=== PATIENT | female | born 1945 | race Two or more races ===

== ENCOUNTER → 2020-04-20 13:34 | Outpatient (BNVA) | payer MEDICARE, SELFPAY | PROVIDERS: PCP Internal Medicine; Referring Provider Internal Medicine; Visit Provider Internal Medicine | DX: R06.02 Shortness of breath (principal); R07.2 Precordial pain; I10 Essential (primary) hypertension; G47.33 Obstructive sleep apnea (adult) (pediatric); E66.01 Morbid (severe) obesity due to excess calories; Z68.39 Body mass index [BMI] 39.0-39.9, adult | CPT/HCPCS: 93005; 99202 ==

== ENCOUNTER → 2020-04-26 07:14 | Outpatient (REF) | payer MEDICARE, SELFPAY ==
--- NOTE | 2020-04-26 07:24 | CA_ITS ---
Transthoracic Echocardiogram Patient (Last, First, Middle): Meghan Emanuel, Gender: Female Date of : 1945 Age: 75 Procedure Date: 04/26/2020 Procedure Type: Transthoracic Echocardiogram Location: OP Height: 152.4 cm Weight: 90.72 kg BSA: 1.87 m2 Heart Rate: bpm BP: 142 / 80 mmHg Spray Painter: Referring MD: Hiro Diop MD Symptoms: R06.02 - Shortness of breath Study Quality: Fair ECG Rhythm: Sinus Conclusions: - The left ventricular systolic function is normal. The visually estimated ejection fraction is between 60-65%. - There is mild aortic valve stenosis. Findings Left Ventricle Normal left ventricular cavity size. The left ventricular systolic function is normal. The visually estimated ejection fraction is between 60-65%. There is no evidence of regional wall motion abnormalities. E/E prime ratio is between 8 and 15 consistent with indeterminate filling pressures. Evidence suggests grade I (mild) diastolic dysfunction. There is mild septal and mild basal asymmetric hypertrophy. Right Ventricle Normal right ventricular cavity size and systolic function. Atria Both atria are normal in size. Aortic Valve There is a normal trileaflet aortic valve. There is mild calcification of the aortic valve. There is mild aortic valve stenosis. The peak aortic velocity is 2.20 m/s with a calculated peak gradient of 19 mmHg. The mean gradient is 8 mmHg. The aortic valve area is 1.56 cm2. There is no aortic valve regurgitation. Mitral Valve The mitral valve appears normal. There is trace mitral valve regurgitation. There is no mitral valve stenosis. Pulmonic Valve The pulmonic valve was not well visualized. Tricuspid Valve Normal tricuspid valve structure. There is trace tricuspid valve regurgitation. The pulmonary artery systolic pressure is normal. Great Vessels The aortic annulus, sinuses of valsalva, and asc aorta are normal in size. Venous The inferior vena cava is normal in size and collapses greater than 50% with inspiration. Pericardium/Pleural There is no evidence of pericardial effusion. Prior Study Comparison No prior study available for comparison. Measurements 2D Linear Measurements IVSd: 1.54 0.6-0.9/0.6-1.0 cm LVIDd: 3.04 3.9-5.3/4.2-5.9 cm LVIDd Index: 1.63 2.4-3.2/2.2-3.1 cm/m2 LVIDs: 2.95 2.0-3.6 cm LVPWd: 1.45 0.7-1.1 cm Ao Root: 3.40 2.1-3.5 cm LA Diam: 3.80 2.7-3.8/3.0-4.0 cm LAIDs Index: 2.03 1.5-2.3 cm/m2 LV Mass: 198.81 67-162/88-224 g LV Mass Index: 106.31 43-95/49-115 g/m2 LVOT Diam: 2.00 3.0+(-)1.3 cm 2D Systolic Function EF 4C: 57.90 >55% EF 2C: 59.90 >55% EF BiP: 58.60 >55% Mitral Valve MV Pk E: 0.71 MV PK A: 0.93 MV Decel Time: 187.00 E/A: 0.80 E'Lateral: 5.22 E'Medial: 5.80 E/E' Med: 12.20 E/E' Lat: 13.60 PHT: 55.00 MVA PHT: 4.00 Decel [place]: 3.79 Aortic Valve AoV Pk Samy: 2.20 AoV Mn Samy: 1.33 AoV VTI: 0.47 AoV Pk Grad: 19.00 Aov Mn Grad: 8.00 DONTE Cont.VTI: 1.56 LVOT LVOT Pk Samy: 1.00 LVOT Mn Samy: 0.70 LVOT VTI: 0.23 LVOT Pk Grad: 4.00 LVOT Mn Grad: 2.00 LVOT Diam: 2.00 LVOT Area: 3.14 Diastolic Function MV Pk E: 0.71 MV Pk A: 0.93 E/A: 0.80 E'Medial: 5.80 E/E' Med: 12.20 E' Laterial: 5.22 E/E' Lat: 13.60 Tricuspid Valve TR Pk Samy: 1.88 TR Pk Grad: 14.00 RA Press: 3.00 RVSP: 17.00 Great Vessels Aorta Ao Root-2D: 3.40 2.0-3.7 cm Ao Asc: 3.00 2.1-3.4 cm Pulmonary Valve PV Pk Samy: 0.88 Peak PV Grad: 3.00 Updated in Other Vendor System with Status of Final Hiro Diop MD electronically signed on 04/26/2020 12:54:14 PM with status of Final
== END ==
LOC: HO.CARD 07:14
PROVIDERS: PCP Internal Medicine; Visit Provider Internal Medicine
DX: R06.02 Shortness of breath (principal)
CPT/HCPCS: 93306

== ENCOUNTER → 2020-05-12 07:40 | Outpatient (REF) | payer MEDICARE, SELFPAY ==
--- NOTE | 2020-05-12 | NM_ITS ---
Lexiscan Myocardial perfusion study Indication: Chest pain, assess for coronary disease and ischemia Technique: The patient was brought in for a Lexiscan perfusion study on 05/12/2020 and was injected 0.4 mg of Lexiscan intravenously. Within a minute of this injection 30 mCi of sestamibi was given intravenously. Images were obtained using the SPECT gamma camera interlaced with the gating device. Images were obtained in supine position. Resting perfusion study was performed on 05/13/2020. Patient was administered 30 mCi of sestamibi intravenously at rest. Images were then obtained in supine position. Total DLP 99mGy-cm. Images were processed with the software and compared side to side in short axis, horizontal long axis and vertical long axis views. Findings: Raw acquisition reviewed. The stress perfusion study showed mildly diminished tracer uptake at the apical anterior wall. With CT attenuation correction, there is improvement, that could indicate soft tissue attenuation artifact. The gated study shows normal LV systolic function with calculated LVEF of 73%. LV cavity is normal in size. The gated study shows normal wall thickening and contraction of segments. Resting study shows mildly diminished tracer uptake in the apical anterior wall. With CT attenuation correction, this actually looks worse than during uncorrected acquisition. Gating at rest reveals normal wall motion with ejection fraction at 69%. The findings are consistent with mild reversible apical anterior defect that could be from soft tissue attenuation artifact. NM/NM adolfo perf SPECT rest & str Impression: 1. Myocardial perfusion imaging study shows small mild reversible perfusion defect in the apical anterior wall that could be from soft tissue attenuation based on improvement in the attenuation corrected images. 2. Gated LVEF is 70% during stress and 69% during rest. 3. Transient ischemic dilatation not present. EKG component of the test reported separately.
--- NOTE | 2020-05-12 07:45 | CA_ITS ---
Acquisition Time: 2020-05-12 07:50:58 Total Exercise Time: 00:02:00 Test Indications: Dyspnea Medications: METOPROLOL OMEPRAZOLE PRAVASTATIN VALSARTAN/HCTZ QUININE Protocol: LEXISCAN Max HR: 104 BPM 71% of Pred: 145 BPM Max BP: 130/078 mmHG Max Work Load: 1.0 METS Pharmacological stress test using Lexiscan while sitting and kicking her legs. Pt tolerated well, denies any anginal sx. EKG without any arrhythmias, non-diagnostic for ischemia. Nuclear images to follow. Normotensive response to test. Test reviewed with Dr. Diop Referred By: Hiro Diop Overread By: Perla Forrest
== END ==
LOC: HO.CARD 07:40
PROVIDERS: Visit Provider Internal Medicine
DX: R07.2 Precordial pain (principal); I20.9 Angina pectoris, unspecified
CPT/HCPCS: 78452; 93017; A9500; J0280; J2785

== ENCOUNTER → 2020-06-01 14:07 | Outpatient (BNVA) | payer MEDICARE, SELFPAY | PROVIDERS: PCP Internal Medicine; Visit Provider Internal Medicine | DX: R07.2 Precordial pain (principal); R06.02 Shortness of breath; I10 Essential (primary) hypertension; E66.01 Morbid (severe) obesity due to excess calories; Z68.39 Body mass index [BMI] 39.0-39.9, adult; G47.33 Obstructive sleep apnea (adult) (pediatric); I35.0 Nonrheumatic aortic (valve) stenosis; Z79.51 Long term (current) use of inhaled steroids | CPT/HCPCS: 99212 ==

== ENCOUNTER → 2020-06-14 13:25 | Outpatient (BNVA) | payer MEDICARE, SELFPAY | PROVIDERS: PCP Internal Medicine; Visit Provider Urology | DX: N39.41 Urge incontinence (principal); N31.8 Other neuromuscular dysfunction of bladder | CPT/HCPCS: 51798; 81002; 99212 ==

== ENCOUNTER → 2020-07-14 10:30 | Outpatient (BNVA) | payer MEDICARE, SELFPAY | PROVIDERS: PCP Internal Medicine; Visit Provider Urology | DX: N31.8 Other neuromuscular dysfunction of bladder (principal); N39.41 Urge incontinence | CPT/HCPCS: 99212 ==

== ENCOUNTER → 2020-09-16 13:52 | Outpatient (BNVA) | payer MEDICARE, SELFPAY | PROVIDERS: PCP Internal Medicine; Visit Provider Urology | DX: N39.41 Urge incontinence (principal); N31.8 Other neuromuscular dysfunction of bladder | CPT/HCPCS: 51798; 99212 ==

== ENCOUNTER 2020-12-21 07:28 | Outpatient (REF) | payer MEDICARE, SELFPAY ==
[2020-12-21 08:12] LABS: PLT CLUMP 1; Red Cell Distribution Width 13.3 % (11.0-16.0)
[2020-12-21 08:14] LABS: Hematocrit 38.3 % (37-47); Hemoglobin 12.8 g/dl (12.0-16.0); Mean Corpuscular HGB Conc 33.4 g/dl (31.0-35.0); Mean Corpuscular Hemoglobin 30.5 pg (27.0-33.0); Mean Corpuscular Volume 91.4 fL (80-98); Mean Platelet Volume 11.8 fL (9.4-12.3); Platelet Count 135 X10*3/uL (160-400); Red Blood Count 4.19 X10*6/uL (4.20-5.50); White Blood Count 8.9 X10*3/uL (4.8-10.8)
[2020-12-21 08:31] LABS: B Type Natriuretic Peptide 29 pg/mL (<100)
[2020-12-21 08:32] LABS: Alanine Aminotransferase 19 U/L (0-31); Albumin Level 4.4 g/dL (3.5-5.0); Alkaline Phosphatase 99 U/L (39-117); Anion Gap 12 (12-20); Aspartate Amino Transferase 17 U/L (5-31); Bilirubin Total 1.3 mg/dL (0.0-1.0); Blood Urea Nitrogen 16 mg/dL (9-16); Calcium 9.8 mg/dL (8.4-10.2); Carbon Dioxide 29 mmol/L (22-29); Chloride 102 mmol/L (96-108); Cholesterol 179 mg/dL; Estimated Glomerular Filt Rate 47; Glucose Fasting 319 mg/dL (60-99); HDL Cholesterol 31 mg/dL; LDL Cholesterol Calculated 84 mg/dl; Potassium 4.9 mmol/L (3.3-5.1); Sodium 138 mmol/L (135-145); Total Protein 6.9 g/dL (6.5-8.0); Triglycerides 322 mg/dL
== END 2020-12-21 07:29 | disposition home or self-care (01) ==
LOC: HO.LAB 07:28
PROVIDERS: PCP Internal Medicine; Visit Provider Internal Medicine
DX: E55.9 Vitamin D deficiency, unspecified (principal); E66.01 Morbid (severe) obesity due to excess calories; E78.5 Hyperlipidemia, unspecified; I10 Essential (primary) hypertension; R06.02 Shortness of breath
CPT/HCPCS: 36415; 80053; 80061; 82306; 83880; 84443; 85027

== ENCOUNTER 2020-12-21 07:58 | Emergency (ER) | payer MEDICARE, SELFPAY ==
[2020-12-21 08:21] LABS: Glucose Urine UA 500 MG/DL (NEG); Leukocyte Esterase Urine 2+ (NEG); Nitrite Urine POS (NEG); PH 6.5 (5.0-8.0); UACC Culture Trigger YES; Urine Blood 3+ (NEG); Urine Ketones NEG (NEG); Urine Protein 2+ MG/DL (NEG-TRACE)
[2020-12-21 08:29] LABS: Appearance Urine CLOUDY; Color Urine RED
[2020-12-21 08:30] LABS: Bacteria Urine 1+ /LPF; RBC Urine TNTC /HPF (0); Squamous Epithelial Cell Urine TRACE /LPF; UACC CULT YES
[2020-12-21 08:31] VITALS: RESP 16; O2SAT 100; BMI 11.7
--- NOTE | 2020-12-21 08:48 | ED_ITS ---
HPI - Female Genitourinary General Chief complaint: General Medical Stated complaint: Vaginal Bleeding Time Seen by Provider: 12/21/20 08:31 Source: patient Mode of arrival: ambulatory Limitations: no limitations History of Present Illness HPI Narrative: was here getting routine lab work and noticed this after using bathroom x 1 MD elicited complaint: dysuria, UTI and other (?hematuria vs vaginal bleeding) Pertinent past history: recurrent UTIs Onset (ago): minute(s) Severity: mild Quality of pain: cramping Consistency: now resolved Vaginal discharge: none Vaginal bleeding: other (unsure) Urinary symptoms: Dysuria, Urgency and Hematuria Exacerbating factors: urination Relieving factors: none Associated symptoms: denies other symptoms Treatment prior to arrival: none Related Data Home Medications Medication Instructions Recorded Confirmed calcium carbonate-vitamin D3 600 cap PO 04/20/20 11/29/20 mg calcium-200 unit capsule omega-3 fatty acids 1,000 mg 1,000 mg PO DAILY 04/20/20 11/29/20 capsule pravastatin 40 mg tablet 40 mg PO DAILY 04/20/20 11/29/20 quinine-vitamin E capsule cap PO 04/20/20 11/29/20 valsartan 160 1 tab PO DAILY 04/20/20 11/29/20 mg-hydrochlorothiazide 12.5 mg tablet clotrimazole-betamethasone 1 appl TOPICAL BID 07/14/20 11/29/20 %-0.05 % topical cream Previous Rx's Medication Instructions Recorded albuterol sulfate 90 mcg/actuation 2 puff INHALATION QID #17 g 11/29/20 aerosol inhaler fenofibrate micronized 67 mg 67 mg PO DAILY #90 cap 11/29/20 capsule metoprolol succinate 25 mg 25 mg PO DAILY #90 tab 11/29/20 tablet,extended release 24 hr omeprazole 20 mg capsule,delayed 20 mg PO DAILY #90 cap 11/29/20 release tolterodine 4 mg capsule,extended 4 mg PO .Q.a.m. 90 Days #90 cap 11/29/20 release 24 hr cefuroxime axetil 500 mg PO BID 7 Days #14 tab 12/21/20 Allergies Allergy/AdvReac Type Severity Reaction Status Date / Time No Known Allergies Allergy Verified 11/29/20 13:33 [No Known Allergies*] Review of Systems Review of Systems: Constitutional : No Weight loss, No Fever, No Chills, No Fatigue, No Malaise ENT/Mouth : No sore throat, No Rhinorrhea Eyes: No Eye Pain, No Swelling, No Redness Cardiovascular : No Chest Pain, No SOB, No Dyspnea on Exertion, No Orthopnea, No Edema, No Palpitations Respiratory : No Cough, No Sputum, No Wheezing Gastrointestinal : No Nausea, No Vomiting, No Diarrhea, No Constipation, No abdominal Pain, No Hematochezia, No Melena Genitourinary : pos Dysuria, pos Urinary Frequency, pos Hematuria, Musculoskeletal : No joint pain, No Myalgias, No Joint Swelling Skin : No Skin Lesions, No rash Neuro : No Weakness, No Numbness, No Dizziness, No Headache Psych : No Anxiety/Panic, No Depression Heme/Lymph: No Bruising, No Bleeding,No Lymphadenopathy Endocrine : No Polyuria, No Polydipsia All other systems reviewed and are negative [facility] Past Medical History Attestation statement: The following information was validated with the patient. Medical History Bladder hypertonicity Essential hypertension Hyperlipidemia Morbid obesity Normal colonoscopy BEKAH (obstructive sleep apnea) Urge incontinence Urgency of micturition Vitamin D deficiency Surgical History History of bilateral cataract extraction History of carpal tunnel release of both wrists History of section History of cholecystectomy History of shoulder surgery History of total knee replacement S/P knee surgery Family History Family History Mother Breast cancer Myocardial infarction Father Myocardial infarction Prostate cancer Social History Social History Household Members Other:: , lives alone, 4 sons, Housing: House Patient Tobacco Use Status: Never used Tobacco e-Cigarette/Vaping Use: Never Used Second Hand Smoke Exposure: No Advance Directives: No Advance Directives Information Provided: Yes service: No Current occupational status: retired Current occupational exposures/hazards: No Physical Exam Vital Signs: Vital Signs: Last Vital Signs Resp 16 12/21/20 08:31 Pulse Ox 100 12/21/20 08:31 Body Mass Index 11.7 Appearance: Alert. Oriented X3. No acute distress. Eyes: Pupils equal, round and reactive to light. ENT: Pharynx normal. Neck: Normal inspection. Neck supple. CVS: Normal heart rate and rhythm. Pulses normal. Respiratory: No respiratory distress. Breath sounds normal. Abdomen: Soft and nontender. no CVA ttp Skin: Skin warm and dry. Normal skin color. Normal skin turgor. Extremities: No lower extremity edema. No calf ttp Neuro: Oriented X 3. No motor deficit. No sensory deficit. MDM - Female Genitourinary MDM Narrative Medical decision making narrative: 75 yo female with hx of BEKAH, aortic stenosis, HLD, urinary incontinence, c/o some cramping and dysuria, she wasn't sure where the bleeding was coming from urine or vaginal after using the bathroom - she has no blood on external vaginal exam, no n/v abdominal pain, + UTI - suspect cystitis at this time will treat with antibiotics and refer to PCP Lab Data Labs: Lab Results 12/21/20 Range/Units 08:12 Urine Color RED Urine Appearance CLOUDY Urine pH 6.5 (5.0-8.0) Ur Specific [place] 1.010 (1.005-1.025) Urine Protein 2+ H (NEG-TRACE) MG/DL Urine Glucose (UA) 500 H (NEG) MG/DL Urine Ketones NEG (NEG) MG/DL Urine Blood 3+ H (NEG) Urine Nitrite POS H (NEG) Ur Leukocyte Esterase 2+ H (NEG) Urine RBC TNTC H (0) /HPF Urine WBC 10-14 H (0-4) /HPF Ur Squamous Epith Cells TRACE /LPF Urine Bacteria 1+ /LPF Discharge Plan Discharge Clinical Impression: Acute UTI Patient Disposition: Home, Self-Care Instructions: Urinary Tract Infection in Older Adults (ED) Additional Instructions: return to ED for any worsening symptoms or concerns Prescriptions: New cefuroxime axetil 500 mg tablet 500 mg PO BID 7 Days Qty: 14 RF: 0 No Action albuterol sulfate 90 mcg/actuation HFA aerosol inhaler 2 puff inhalation QID Qty: 17 RF: 4 fenofibrate micronized 67 mg capsule 67 mg PO DAILY Qty: 90 RF: 3 metoprolol succinate 25 mg tablet extended release 24 hr 25 mg PO DAILY Qty: 90 RF: 3 omeprazole 20 mg capsule,delayed release(DR/EC) 20 mg PO DAILY Qty: 90 RF: 3 tolterodine 4 mg capsule,extended release 24hr 4 mg PO .Q.a.m. 90 Days Qty: 90 RF: 3 pravastatin 40 mg tablet 40 mg PO DAILY RF: 0 valsartan-hydrochlorothiazide 160-12.5 mg tablet 1 tab PO DAILY RF: 0 Calcium 600 + D(3) 600 mg calcium- 200 unit capsule PO RF: 0 omega-3 fatty acids [Fish Oil Concentrate] 1,000 mg capsule 1,000 mg PO DAILY RF: 0 quinine-vitamin E Capsule PO RF: 0 clotrimazole-betamethasone 1-0.05 % cream topical BID RF: 0 Referrals: Saige Salamanca MD [Primary Care Provider] - 2 days (if not better)
== END 2020-12-21 08:59 | disposition home or self-care (01) ==
LOC: HO.ED 08:51
PROVIDERS: Emergency Provider Emergency Medicine; PCP Internal Medicine
DX: N39.0 Urinary tract infection, site not specified (principal); I10 Essential (primary) hypertension; Z79.899 Other long term (current) drug therapy
CPT/HCPCS: 81001; 87086; 87088; 87186; 99283

== ENCOUNTER 2021-01-04 11:19 | Outpatient (REF) | payer MEDICARE, SELFPAY ==
[2021-01-04 14:18] LABS: Glucose Urine UA NEG (NEG); Leukocyte Esterase Urine 2+ (NEG); Nitrite Urine NEG (NEG); UACC Culture Trigger YES; Urine Blood 1+ (NEG); Urine Ketones NEG (NEG); Urine Protein NEG (NEG-TRACE)
[2021-01-04 14:20] LABS: Appearance Urine CLOUDY; Color Urine YELLOW
[2021-01-04 14:56] LABS: Bacteria Urine 1+ /LPF; Squamous Epithelial Cell Urine 2+ /LPF; WBC Urine 30-49 /HPF (0-4)
== END 2021-01-04 11:20 | disposition home or self-care (01) ==
LOC: HO.HMGCLDS 11:19
PROVIDERS: PCP Internal Medicine; Visit Provider Internal Medicine
DX: I10 Essential (primary) hypertension (principal); E78.5 Hyperlipidemia, unspecified; R73.9 Hyperglycemia, unspecified
CPT/HCPCS: 81001; 81003; 87086; 87088; 87186

== ENCOUNTER 2021-02-02 08:43 | Outpatient (REF) | payer MEDICARE, SELFPAY | END 2021-02-02 08:44 | disposition home or self-care (01) | LOC: HO.MAMMO 08:43 | PROVIDERS: Visit Provider Internal Medicine | DX: Z13.89 Encounter for screening for other disorder (principal) ==

== ENCOUNTER 2021-03-09 11:28 | Outpatient (REF) | payer MEDICARE, SELFPAY ==
--- NOTE | ~2021-03-09 | MM_ITS ---
EXAMINATION: MM SCREENING DIGITAL BREAST TOMOSYNTHESIS, BILATERAL CLINICAL INFORMATION: Screening. Asymptomatic. The lifetime risk of breast cancer based on the Tyrer-Cuzick Model is 3%. COMPARISON: Mammography: 08/30/2009 TECHNIQUE: Digital breast tomosynthesis is performed in both the craniocaudal and mediolateral oblique views along with computer-aided detection (CAD). Synthesized 2D images are generated from the tomosynthesis. FINDINGS: The breasts are almost entirely fatty (ACR BI-RADS breast composition Category a). There are no significant masses, abnormal calcifications, or other abnormalities. Background stromal markings are stable. No architectural abnormality. The axilla and skin contours are unremarkable. MM/MM tomosynthesis screening BI IMPRESSION: No mammographic evidence of malignancy. ASSESSMENT: BI-RADS 1: Negative RECOMMENDATION: Routine annual mammography screening. This patient's information was entered into a reminder system with a target due date for their next mammogram.
== END 2021-03-09 11:29 | disposition home or self-care (01) ==
LOC: HO.MAMMO 11:28
PROVIDERS: Visit Provider Internal Medicine
DX: Z12.31 Encounter for screening mammogram for malignant neoplasm of breast (principal)
CPT/HCPCS: 77063; 77067

== ENCOUNTER → 2021-03-23 09:33 | Outpatient (BNVA) | payer MEDICARE, SELFPAY | PROVIDERS: PCP Internal Medicine | DX: N39.41 Urge incontinence (principal); N31.8 Other neuromuscular dysfunction of bladder; E11.65 Type 2 diabetes mellitus with hyperglycemia; E78.5 Hyperlipidemia, unspecified; E66.01 Morbid (severe) obesity due to excess calories | CPT/HCPCS: 51798; 99212 ==

== ENCOUNTER 2021-04-21 08:01 | Outpatient (REF) | payer MEDICARE, SELFPAY ==
[2021-04-21 09:32] LABS: Appearance Urine CLEAR; Color Urine YELLOW; Glucose Urine UA NEG (NEG); Leukocyte Esterase Urine 1+ (NEG); Nitrite Urine NEG (NEG); PH 5.5 (5.0-8.0); UACC Culture Trigger YES; Urine Blood NEG (NEG); Urine Ketones NEG (NEG); Urine Protein NEG (NEG-TRACE)
[2021-04-21 09:43] LABS: Estimated Average Glucose 140 mg/dL; Hemoglobin A1c % 6.5 %
[2021-04-21 09:46] LABS: Bacteria Urine 1+ /LPF; RBC Urine 0 /HPF (0); Squamous Epithelial Cell Urine 1+ /LPF
[2021-04-21 10:03] LABS: Creatinine Urine 77.48 mg/dL; Microalbumin Urine < 5.0 mg/L
[2021-04-21 10:10] LABS: Alanine Aminotransferase 16 U/L (0-31); Albumin Level 4.5 g/dL (3.5-5.0); Alkaline Phosphatase 70 U/L (39-117); Anion Gap 11 (12-20); Aspartate Amino Transferase 15 U/L (5-31); Bilirubin Total 0.9 mg/dL (0.0-1.0); Blood Urea Nitrogen 22 mg/dL (9-16); Calcium 9.4 mg/dL (8.4-10.2); Carbon Dioxide 27 mmol/L (22-29); Chloride 106 mmol/L (96-108); Cholesterol 165 mg/dL; Estimated Glomerular Filt Rate 57; Glucose Fasting 135 mg/dL (60-99); HDL Cholesterol 34 mg/dL; LDL Cholesterol Calculated 104 mg/dl; Potassium 4.4 mmol/L (3.3-5.1); Sodium 140 mmol/L (135-145); Total Protein 6.7 g/dL (6.5-8.0); Triglycerides 139 mg/dL
[2021-04-21 10:18] LABS: TSH reflex Free T4 2.78 uIU/mL (0.32-4.0)
== END 2021-04-21 08:02 | disposition home or self-care (01) ==
LOC: HO.LAB 08:01
PROVIDERS: PCP Internal Medicine; Visit Provider Internal Medicine
DX: E11.9 Type 2 diabetes mellitus without complications (principal); E78.5 Hyperlipidemia, unspecified; E55.9 Vitamin D deficiency, unspecified; I10 Essential (primary) hypertension
CPT/HCPCS: 36415; 80053; 80061; 81001; 82043; 83036; 84443; 87086

== ENCOUNTER → 2021-05-12 08:09 | Outpatient (REF) | payer MEDICARE, SELFPAY ==
--- NOTE | 2021-05-12 08:13 | CA_ITS ---
Transthoracic Echocardiogram Patient (Last, First, Middle): Nimo Emanuel, Gender: Female Date of : 1945 Age: 76 Procedure Date: 05/12/2021 Procedure Type: Transthoracic Echocardiogram Location: OP Height: 157.48 cm Weight: 88.45 kg BSA: 1.89 m2 Heart Rate: bpm BP: 136 / 78 mmHg Dough Molder: CANDE Referring MD: Hiro Diop MD Symptoms: I35.0 - Nonrheumatic aortic (valve) stenosis Study Quality: Fair Conclusions: - Normal left ventricular size and systolic function. - The visually estimated ejection fraction is between 60-65%. - E/E prime ratio is between 8 and 15 consistent with indeterminate filling pressures. - There is mild aortic valve stenosis. The peak aortic velocity is 2.28 m/s. The aortic valve area is 1.59 cm2. Findings Left Ventricle Normal left ventricular size and systolic function. There is mildly increased left ventricular wall thickness. The visually estimated ejection fraction is between 60-65%. Abnormal diastolic function is noted. Spectral Doppler is indicative of an impaired relaxation filling pattern. E/E prime ratio is between 8 and 15 consistent with indeterminate filling pressures. Right Ventricle Normal right ventricular cavity size and systolic function. Atria The left atrium is normal in size. Aortic Valve There is mild calcification of the aortic valve. There is mild thickening of the aortic valve. There is mild aortic valve stenosis. The peak aortic velocity is 2.28 m/s. The aortic valve area is 1.59 cm2. There is no aortic valve regurgitation. Mitral Valve The mitral valve appears normal. There is trace mitral valve regurgitation. There is no mitral valve stenosis. Pulmonic Valve The pulmonic valve is likely normal. There is trace pulmonic valve regurgitation. Tricuspid Valve Normal tricuspid valve structure and function. There is no tricuspid valve regurgitation. Normal right atrial pressure. There is no evidence of pulmonary hypertension. Great Vessels All visible segments of the aorta are normal in size. The visualized portions of the pulmonary artery and branches are normal. Venous The inferior vena cava is normal in size and collapses greater than 50% with inspiration. Pericardium/Pleural There is no evidence of pericardial effusion. Prior Study Comparison No significant change compared to prior study dated: 04/26/2020. Measurements 2D Linear Measurements IVSd: 0.96 0.6-0.9/0.6-1.0 cm LVIDd: 4.09 3.9-5.3/4.2-5.9 cm LVIDd Index: 2.16 2.4-3.2/2.2-3.1 cm/m2 LVIDs: 2.62 2.0-3.6 cm LVPWd: 1.00 0.7-1.1 cm Ao Root: 3.10 2.1-3.5 cm LA Diam: 3.70 2.7-3.8/3.0-4.0 cm LAIDs Index: 1.96 1.5-2.3 cm/m2 LV Mass: 159.49 67-162/88-224 g LV Mass Index: 84.39 43-95/49-115 g/m2 LVOT Diam: 2.00 3.0+(-)1.3 cm 2D Systolic Function EF 4C: 60.40 >55% EF 2C: 64.00 >55% EF BiP: 61.80 >55% Mitral Valve MV Pk E: 0.81 MV PK A: 1.00 MV Decel Time: 215.00 E/A: 0.80 E'Lateral: 8.92 E'Medial: 6.42 E/E' Med: 12.70 E/E' Lat: 9.10 PHT: 63.00 MVA PHT: 3.49 Decel [place]: 3.79 Aortic Valve AoV Pk Samy: 2.28 AoV Mn Samy: 1.56 AoV VTI: 0.51 AoV Pk Grad: 21.00 Aov Mn Grad: 11.00 DONTE Cont.VTI: 1.59 LVOT LVOT Pk Samy: 1.04 LVOT Mn Samy: 0.73 LVOT VTI: 0.26 LVOT Pk Grad: 4.00 LVOT Mn Grad: 2.00 LVOT Diam: 2.00 LVOT Area: 3.14 Diastolic Function MV Pk E: 0.81 MV Pk A: 1.00 E/A: 0.80 E'Medial: 6.42 E/E' Med: 12.70 E' Laterial: 8.92 E/E' Lat: 9.10 Right Ventricle TAPSE (mm): 2.24 TVS' Samy: 11.40 Tricuspid Valve TR Pk Samy: 1.29 TR Pk Grad: 7.00 RA Press: 3.00 RVSP: 10.00 Great Vessels Aorta Ao Root-2D: 3.10 2.0-3.7 cm Ao Asc: 3.10 2.1-3.4 cm Ao Arch: 2.40 Updated in Other Vendor System with Status of Final Klever Wilburn MD electronically signed on 05/14/2021 9:25:00 PM with status of Final
== END ==
LOC: HO.CARD 08:09
PROVIDERS: Visit Provider Internal Medicine
DX: I35.0 Nonrheumatic aortic (valve) stenosis (principal)
CPT/HCPCS: 93306

== ENCOUNTER → 2021-06-05 09:35 | Outpatient (BNVA) | payer MEDICARE, SELFPAY | PROVIDERS: PCP Internal Medicine; Referring Provider Internal Medicine; Visit Provider Internal Medicine | DX: I10 Essential (primary) hypertension (principal); I35.0 Nonrheumatic aortic (valve) stenosis; G47.33 Obstructive sleep apnea (adult) (pediatric); E11.8 Type 2 diabetes mellitus with unspecified complications; E66.01 Morbid (severe) obesity due to excess calories | CPT/HCPCS: 93005; 99212 ==

== ENCOUNTER 2021-08-29 08:20 | Outpatient (REF) | payer MEDICARE, SELFPAY ==
[2021-08-29 09:20] LABS: Estimated Average Glucose 134 mg/dL; Hemoglobin A1c % 6.3 %
[2021-08-29 09:34] LABS: Alanine Aminotransferase 18 U/L (0-31); Albumin Level 4.3 g/dL (3.5-5.0); Alkaline Phosphatase 68 U/L (39-117); Anion Gap 11 (12-20); Aspartate Amino Transferase 14 U/L (5-31); Bilirubin Total 0.6 mg/dL (0.0-1.0); Blood Urea Nitrogen 17 mg/dL (9-16); Calcium 9.7 mg/dL (8.4-10.2); Carbon Dioxide 28 mmol/L (22-29); Chloride 107 mmol/L (96-108); Cholesterol 172 mg/dL; Estimated Glomerular Filt Rate 52; Glucose Random 154 mg/dL (60-115); HDL Cholesterol 35 mg/dL; LDL Cholesterol Calculated 107 mg/dl; Potassium 4.3 mmol/L (3.3-5.1); Sodium 142 mmol/L (135-145); Total Protein 6.6 g/dL (6.5-8.0); Triglycerides 150 mg/dL
[2021-08-29 11:07] LABS: Appearance Urine CLEAR; Color Urine YELLOW; Glucose Urine UA NEG (NEG); Leukocyte Esterase Urine 1+ (NEG); Nitrite Urine NEG (NEG); PH 5.5 (5.0-8.0); Specific Gravity - Urine 1.025 (1.005-1.025); UACC Culture Trigger YES; Urine Blood NEG (NEG); Urine Ketones NEG (NEG); Urine Protein NEG (NEG-TRACE)
[2021-08-29 11:20] LABS: RBC Urine 0 /HPF (0); Squamous Epithelial Cell Urine 2+ /LPF
[2021-08-29 11:21] LABS: Bacteria Urine 2+ /LPF
== END 2021-08-29 08:21 | disposition home or self-care (01) ==
LOC: HO.LAB 08:20
PROVIDERS: PCP Internal Medicine; Visit Provider Internal Medicine
DX: E11.9 Type 2 diabetes mellitus without complications (principal); E55.9 Vitamin D deficiency, unspecified; E78.5 Hyperlipidemia, unspecified; I10 Essential (primary) hypertension
CPT/HCPCS: 36415; 80053; 80061; 81001; 83036; 87086

== ENCOUNTER → 2021-09-21 08:47 | Outpatient (BNVA) | payer MEDICARE, SELFPAY | PROVIDERS: PCP Internal Medicine | DX: R33.9 Retention of urine, unspecified (principal); N39.0 Urinary tract infection, site not specified; Z79.899 Other long term (current) drug therapy | CPT/HCPCS: 51798; 99212 ==

== ENCOUNTER 2022-02-08 08:37 | Outpatient (REF) | payer MEDICARE, SELFPAY ==
[2022-02-08 11:40] LABS: Appearance Urine Clear; Color Urine Yellow; Glucose Urine UA Negative (Negative); Leukocyte Esterase Urine Moderate (2+) (Negative); Nitrite Urine Negative (Negative); Specific Gravity - Urine 1.015 (1.005-1.025); UACC Culture Trigger YES; Urine Blood Negative (Negative); Urine Ketones Negative (Negative); Urine Protein Negative (Neg-Trace)
[2022-02-08 11:55] LABS: Bacteria Urine None Seen (None Seen); Hyaline Casts Urine 0-2 /LPF (0-2); RBC Urine 0-2 /HPF (0-2); WBC Urine 0-5 /HPF (0-5)
[2022-02-08 12:19] LABS: Estimated Average Glucose 134 mg/dL; Hemoglobin A1c % 6.3 %
[2022-02-08 12:24] LABS: Alanine Aminotransferase 22 U/L (0-31); Albumin Level 4.5 g/dL (3.5-5.0); Alkaline Phosphatase 70 U/L (39-117); Anion Gap 15 (12-20); Aspartate Amino Transferase 20 U/L (5-31); Bilirubin Total 0.9 mg/dL (0.0-1.0); Blood Urea Nitrogen 17 mg/dL (9-16); Calcium 9.9 mg/dL (8.4-10.2); Carbon Dioxide 27 mmol/L (22-29); Chloride 104 mmol/L (96-108); Cholesterol 126 mg/dL; Estimated Glomerular Filt Rate 47; Glucose Fasting 150 mg/dL (60-99); HDL Cholesterol 38 mg/dL; LDL Cholesterol Calculated 64 mg/dl; Potassium 4.3 mmol/L (3.3-5.1); Sodium 142 mmol/L (135-145); Total Protein 7.1 g/dL (6.5-8.0); Triglycerides 124 mg/dL
== END 2022-02-08 08:38 | disposition home or self-care (01) ==
LOC: HO.HMGCLDS 08:37
PROVIDERS: PCP Internal Medicine; Visit Provider Internal Medicine
DX: E11.8 Type 2 diabetes mellitus with unspecified complications (principal); E78.5 Hyperlipidemia, unspecified
CPT/HCPCS: 36415; 80053; 80061; 81001; 83036; 87086

== ENCOUNTER 2022-03-14 13:09 | Outpatient (REF) | payer MEDICARE, SELFPAY ==
--- NOTE | ~2022-03-14 | MM_ITS ---
EXAMINATION: MM SCREENING DIGITAL BREAST TOMOSYNTHESIS, BILATERAL CLINICAL INFORMATION: Screening. Asymptomatic. The lifetime risk of breast cancer based on the Tyrer-Cuzick Model is 3%. COMPARISON: Mammography: 03/09/2021, 08/30/2009 TECHNIQUE: Digital breast tomosynthesis is performed in both the craniocaudal and mediolateral oblique views along with computer-aided detection (CAD). Synthesized 2D images are generated from the tomosynthesis. FINDINGS: The breasts are almost entirely fatty (ACR BI-RADS breast composition Category a). Background stromal markings are normal. There is no interval mass or architectural abnormality or abnormal calcifications. No developing density. The axilla and skin contours are unremarkable. No significant changes. MM/MM tomosynthesis screening BI IMPRESSION: No mammographic evidence of malignancy. ASSESSMENT: BI-RADS 1: Negative RECOMMENDATION: Routine annual mammography screening. This patient's information was entered into a reminder system with a target due date for their next mammogram.
== END 2022-03-14 13:10 | disposition home or self-care (01) ==
LOC: HO.MAMMO 13:09
PROVIDERS: PCP Internal Medicine; Visit Provider Internal Medicine
DX: Z12.31 Encounter for screening mammogram for malignant neoplasm of breast (principal)
CPT/HCPCS: 77063; 77067

== ENCOUNTER → 2022-03-15 09:45 | Outpatient (BNVA) | payer MEDICARE, SELFPAY | PROVIDERS: PCP Internal Medicine; Visit Provider Urology | DX: N32.81 Overactive bladder (principal); R39.15 Urgency of urination | CPT/HCPCS: 51798; 99212 ==

== ENCOUNTER 2022-03-19 09:49 | Outpatient (REF) | payer MEDICARE, SELFPAY ==
--- NOTE | ~2022-03-19 | XR_ITS ---
EXAMINATION: XR KNEE STANDING, BILATERAL XR KNEE, RIGHT XR KNEE, LEFT CLINICAL INFORMATION: Pain. COMPARISON: Previous right knee x-ray from 2009. TECHNIQUE: Standing AP, lateral and sunrise view of both knees. FINDINGS: LEFT: There is a 3 component knee replacement in satisfactory position. No fracture, dislocation or x-ray evidence of loosening is seen. There is no joint effusion. RIGHT: Bone alignment is normal. No fracture or dislocation or x-ray evidence of loosening is seen. There is no joint effusion. XR/XR knee LT 2V IMPRESSION: Satisfactory appearance of bilateral knee replacements.
--- NOTE | ~2022-03-19 | XR_ITS ---
EXAMINATION: XR KNEE STANDING, BILATERAL XR KNEE, RIGHT XR KNEE, LEFT CLINICAL INFORMATION: Pain. COMPARISON: Previous right knee x-ray from 2009. TECHNIQUE: Standing AP, lateral and sunrise view of both knees. FINDINGS: LEFT: There is a 3 component knee replacement in satisfactory position. No fracture, dislocation or x-ray evidence of loosening is seen. There is no joint effusion. RIGHT: Bone alignment is normal. No fracture or dislocation or x-ray evidence of loosening is seen. There is no joint effusion. XR/XR knee standing BI IMPRESSION: Satisfactory appearance of bilateral knee replacements.
--- NOTE | ~2022-03-19 | XR_ITS ---
EXAMINATION: XR KNEE STANDING, BILATERAL XR KNEE, RIGHT XR KNEE, LEFT CLINICAL INFORMATION: Pain. COMPARISON: Previous right knee x-ray from 2009. TECHNIQUE: Standing AP, lateral and sunrise view of both knees. FINDINGS: LEFT: There is a 3 component knee replacement in satisfactory position. No fracture, dislocation or x-ray evidence of loosening is seen. There is no joint effusion. RIGHT: Bone alignment is normal. No fracture or dislocation or x-ray evidence of loosening is seen. There is no joint effusion. XR/XR knee RT 2V IMPRESSION: Satisfactory appearance of bilateral knee replacements.
== END 2022-03-19 09:50 | disposition home or self-care (01) ==
LOC: HO.HOSX 09:49
PROVIDERS: Visit Provider Physician Assistant
DX: T84.84XA Pain due to internal orthopedic prosthetic devices, implants and grafts, initial encounter (principal); Z96.653 Presence of artificial knee joint, bilateral
CPT/HCPCS: 73560; 73565; 99202

== ENCOUNTER → 2022-06-11 10:09 | Outpatient (BNVA) | payer MEDICARE, SELFPAY | PROVIDERS: PCP Internal Medicine; Referring Provider Internal Medicine; Visit Provider Internal Medicine | DX: I35.0 Nonrheumatic aortic (valve) stenosis (principal); I10 Essential (primary) hypertension; R07.2 Precordial pain; G47.33 Obstructive sleep apnea (adult) (pediatric); E11.8 Type 2 diabetes mellitus with unspecified complications; E66.01 Morbid (severe) obesity due to excess calories; Z68.32 Body mass index [BMI] 32.0-32.9, adult | CPT/HCPCS: 93005; 99212 ==

== ENCOUNTER 2022-08-09 08:48 | Outpatient (REF) | payer MEDICARE, SELFPAY ==
[2022-08-09 11:39] LABS: MANUAL DIFF FLAG NO
[2022-08-09 11:46] LABS: Appearance Urine Clear; Color Urine Yellow; Glucose Urine UA Negative (Negative); Leukocyte Esterase Urine Trace (Negative); Nitrite Urine Negative (Negative); UMIC TRIGGER UACC YES; Urine Blood Negative (Negative); Urine Ketones Negative (Negative); Urine Protein Negative (Neg-Trace)
[2022-08-09 11:51] LABS: Bacteria Urine None Seen (None Seen); Hyaline Casts Urine 0-2 /LPF (0-2); RBC Urine 0-2 /HPF (0-2); WBC Urine 0-5 /HPF (0-5)
[2022-08-09 12:02] LABS: Basophils Percent Auto 0.2 % (0-2); Eosinophils Absolute Auto 0.2 X10*3/uL (0.0-0.4); Eosinophils Percent Auto 3.2 % (0-4); Hematocrit 39.1 % (37.0-47.0); Hemoglobin 12.8 g/dl (12.0-16.0); Imm Gran Abs Auto 0.05 X10*3/uL (0.00-0.03); Imm Gran Pct Auto 0.9 % (0.0-0.4); Lymphocytes Percent Auto 36.1 % (20-40); Mean Corpuscular HGB Conc 32.7 g/dl (31.0-35.0); Mean Corpuscular Hemoglobin 30.7 pg (27.0-33.0); Mean Corpuscular Volume 93.8 fL (80.0-98.0); Mean Platelet Volume 12.4 fL (9.4-12.3); Monocytes Absolute Auto 0.6 X10*3/uL (0.1-1.2); Monocytes Percent Auto 9.8 % (2-11); Neutrophils Absolute Auto 2.8 x10*3/uL (2.0-8.3); Neutrophils Percent Auto 49.8 % (45-73); Platelet Count 153 X10*3/uL (160-400); Red Blood Count 4.17 X10*6/uL (4.20-5.50); Red Cell Distribution Width 13.8 % (11.0-16.0); White Blood Count 5.6 X10*3/uL (4.8-10.8)
[2022-08-09 12:30] LABS: Estimated Average Glucose 146 mg/dL; Hemoglobin A1c % 6.7 %
[2022-08-09 12:49] LABS: Creatinine Urine 47.11 mg/dL; Microalbumin Urine < 5.0 mg/L
[2022-08-09 15:26] LABS: Alanine Aminotransferase 14 U/L (0-31); Albumin Level 4.4 g/dL (3.5-5.0); Alkaline Phosphatase 60 U/L (39-117); Anion Gap 14 (12-20); Aspartate Amino Transferase 16 U/L (5-31); Blood Urea Nitrogen 14 mg/dL (9-16); Calcium 9.4 mg/dL (8.4-10.2); Carbon Dioxide 29 mmol/L (22-29); Chloride 105 mmol/L (96-108); Cholesterol 148 mg/dL; Estimated Glomerular Filt Rate 51; Glucose Fasting 154 mg/dL (60-99); HDL Cholesterol 40 mg/dL; LDL Cholesterol Calculated 81 mg/dl; Potassium 4.9 mmol/L (3.3-5.1); Sodium 143 mmol/L (135-145); Total Protein 6.6 g/dL (6.5-8.0); Triglycerides 138 mg/dL
== END 2022-08-09 08:49 | disposition home or self-care (01) ==
LOC: HO.HMGCLDS 08:48
PROVIDERS: PCP Internal Medicine; Visit Provider Internal Medicine
DX: I10 Essential (primary) hypertension (principal); R73.9 Hyperglycemia, unspecified; E78.5 Hyperlipidemia, unspecified
CPT/HCPCS: 36415; 80053; 80061; 81001; 82043; 83036; 85025

== ENCOUNTER → 2022-08-17 13:36 | Outpatient (REF) | payer MEDICARE, SELFPAY ==
--- NOTE | 2022-08-17 13:39 | CA_ITS ---
Transthoracic Echocardiogram Patient (Last, First, Middle): Nimo Emanuel, Gender: Female Date of : 1945 Age: 77 Procedure Date: 08/17/2022 Procedure Type: Transthoracic Echocardiogram Location: OP Height: 167.64 cm Weight: 88.45 kg BSA: 1.98 m2 Heart Rate: bpm BP: 130 / 60 mmHg Site Manager: TO Referring MD: Saige Salamanca MD Symptoms: R01.1 - Cardiac murmur, unspecified Study Quality: Fair Conclusions: - Normal left ventricular cavity size. There is mildly increased left ventricular wall thickness. The left ventricular systolic function is hyperdynamic. The visually estimated ejection fraction is >70%. - There is mild aortic valve stenosis. - There is mild dilatation of the ascending aorta measuring 3.40 cm. Findings Left Ventricle Normal left ventricular cavity size. There is mildly increased left ventricular wall thickness. The left ventricular systolic function is hyperdynamic. The visually estimated ejection fraction is >70%. Abnormal diastolic function is noted. Spectral Doppler is indicative of an impaired relaxation filling pattern. Elevated filling pressures. Right Ventricle Normal right ventricular cavity size and systolic function. Atria The left atrium is normal in size. The right atrium is normal in size. Aortic Valve There is a normal trileaflet aortic valve. There is mild calcification of the aortic valve. There is mild aortic valve stenosis. There is no aortic valve regurgitation. Mitral Valve The mitral valve appears normal. There is no mitral valve regurgitation. There is no mitral valve stenosis. Pulmonic Valve The pulmonic valve is likely normal. Tricuspid Valve Normal tricuspid valve structure and function. There is no tricuspid valve regurgitation. Tricuspid regurgitation envelope is inadequate for calculation of right ventricular systolic pressure. Normal right atrial pressure. Great Vessels There is mild dilatation of the ascending aorta measuring 3.40 cm. The visualized portions of the pulmonary artery and branches are normal. Venous The inferior vena cava is normal in size and collapses greater than 50% with inspiration. Pericardium/Pleural There is no evidence of pericardial effusion. Measurements 2D Linear Measurements IVSd: 1.11 0.6-0.9/0.6-1.0 cm LVIDd: 4.48 3.9-5.3/4.2-5.9 cm LVIDd Index: 2.26 2.4-3.2/2.2-3.1 cm/m2 LVIDs: 2.49 2.0-3.6 cm LVPWd: 0.98 0.7-1.1 cm LA Diam: 3.10 2.7-3.8/3.0-4.0 cm LAIDs Index: 1.57 1.5-2.3 cm/m2 LV Mass: 201.02 67-162/88-224 g LV Mass Index: 101.53 43-95/49-115 g/m2 LVOT Diam: 2.00 3.0+(-)1.3 cm 2D Systolic Function EF 4C: 58.60 >55% EF 2C: 65.20 >55% EF BiP: 60.60 >55% Mitral Valve MV Pk E: 0.72 MV PK A: 0.83 MV Decel Time: 158.00 E/A: 0.90 E'Lateral: 5.33 E'Medial: 4.79 E/E' Med: 15.00 E/E' Lat: 13.50 PHT: 46.00 MVA PHT: 4.78 Decel [place]: 4.55 Aortic Valve AoV Pk Samy: 2.70 AoV Mn Samy: 1.70 AoV VTI: 0.51 AoV Pk Grad: 29.00 Aov Mn Grad: 14.00 DONTE Cont.VTI: 1.86 LVOT LVOT Pk Samy: 1.44 LVOT Mn Samy: 1.00 LVOT VTI: 0.30 LVOT Pk Grad: 8.00 LVOT Mn Grad: 5.00 LVOT Diam: 2.00 LVOT Area: 3.14 Diastolic Function MV Pk E: 0.72 MV Pk A: 0.83 E/A: 0.90 E'Medial: 4.79 E/E' Med: 15.00 E' Laterial: 5.33 E/E' Lat: 13.50 Right Ventricle TAPSE (mm): 20.40 TVS' Samy: 13.20 Tricuspid Valve RA Press: 3.00 Great Vessels Aorta Sinus of Valsalva: 3.42 2.0-3.5 cm Ao Asc: 3.40 2.1-3.4 cm Updated in Other Vendor System with Status of Final Klever Wilburn MD electronically signed on 08/19/2022 10:27:43 PM with status of Final
== END ==
LOC: HO.CARD 13:36
PROVIDERS: PCP Internal Medicine; Visit Provider Internal Medicine
DX: R01.1 Cardiac murmur, unspecified (principal)
CPT/HCPCS: 93306

== ENCOUNTER → 2022-09-13 11:25 | Outpatient (BNVA) | payer MEDICARE, SELFPAY | PROVIDERS: PCP Internal Medicine; Visit Provider Urology | DX: N32.81 Overactive bladder (principal); R39.15 Urgency of urination; E11.9 Type 2 diabetes mellitus without complications; Z79.899 Other long term (current) drug therapy | CPT/HCPCS: 51798; 99212 ==

== ENCOUNTER 2022-12-11 12:25 | Outpatient (AMB) | payer MEDICARE, SELFPAY ==
[2022-12-11 12:28] VITALS: BP 124/76; PULSE 87; O2SAT 97; BMI 32.3
--- NOTE | 2022-12-11 12:28 | A.OFFPC_ITS ---
Vital Signs 12/11/22 12:28 Height 5 ft 5 in Weight 194 lb 2 oz BMI 32.3 BP 124/76 Blood Pressure Location Rt brachial Position Sitting Pulse 87 Pulse Source Pulse Oximeter Pulse Oximetry (%) 97 Oxygen Delivery Method Room Air Intake Visit Reasons: 4m follow up DM Allergies No Known Allergies [No Known Allergies*] Allergy (Verified 12/11/22 12:29) Medication List - Last Reconciled 12/11/22 by Saige Salamanca MD albuterol sulfate 90 mcg/actuation 2 puffs inhalation QID blood sugar diagnostic (GenUltimate Test Strip) As directed blood sugar diagnostic (OneTouch Ultra Test strips) qd blood-glucose meter (OneTouch Ultra2 Meter) As directed calcium carbonate-vitamin D3 600 mg-5 mcg (200 unit) (Calcium 600 + D(3)) caps PO celecoxib (Celebrex) 200 mg PO BID 30 days ciclopirox 0.77% (Ciclodan) 1 appl topical BID 4 weeks clotrimazole-betamethasone 1-0.05 % appl topical BID diabetic supplies, [place]. extra depth diabetic shoes with 3 pairs custom heat molded innersoles fenofibrate micronized 67 mg PO DAILY [genultimate lancets ] metformin 1,000 mg PO DAILY metoprolol succinate ER 100 mg PO DAILY omega-3 fatty acids (Fish Oil Concentrate) 1,000 mg PO DAILY omeprazole 20 mg PO DAILY quinine-vitamin E caps PO rosuvastatin (Crestor) 10 mg PO DAILY tolterodine ER 4 mg PO BID 90 days triamcinolone acetonide 0.025% 1 appl topical DAILY valsartan-hydrochlorothiazide 160-25 mg 1 tab PO DAILY Tobacco use date assessed: 08/13/22 HPI 4m follow up DM HPI Details PATIENT PRESENTS FOR THE FOLLOW-UP OF TYPE 2 DIABETES HYPERTENSION HYPERLIPIDEMIA STABLE ON CURRENT MEDICATIONS. Patient complains of chronic feet burning sensation worse at night when laying down. She reports intermittent leg cramps. [facility] Medical History (Updated 12/11/22 @ 12:59 by Saige Salamanca MD) Bladder hypertonicity Essential hypertension Hyperlipidemia Morbid obesity Normal colonoscopy BEKAH (obstructive sleep apnea) Retention, urine Urgency of micturition UTI (urinary tract infection) Vitamin D deficiency Surgical History History of bilateral cataract extraction History of carpal tunnel release of both wrists History of section History of cholecystectomy History of shoulder surgery History of total knee replacement S/P knee surgery Family History Mother Breast cancer Myocardial infarction Father Myocardial infarction Prostate cancer Social History Household Members Other:: , lives alone, 4 sons, Housing: House Patient Tobacco Use Status: Never used Tobacco e-Cigarette/Vaping Use: Never Used Second Hand Smoke Exposure: No service: No Current occupational status: retired Current occupational exposures/hazards: No Cognitive needs: No Hearing needs: No Vision needs: Yes Questionnaire Thrive Questionnaire Date Thrive assessed: 08/13/22 JEYSON-7 AMB Questionnaire JEYSON-7 Date JEYSON - 7 assessed: 08/13/22 Source: Developed by Drs. Prudencio Ferreira, Micki Krishnan, Eric Jones and colleagues, with an educational francois from [employer]. Review of Systems Const All systems reviewed & are unremarkable except as noted in HPI and below Reports no additional complaints Eyes Reports no additional complaints ENT Reports no additional complaints Card Reports no additional complaints Resp Reports no additional complaints GI Reports no additional complaints Reports no additional complaints Physical exam (Primary Care) Vital Signs: Last Vital Signs Pulse 87 12/11/22 12:28 BP 124/76 12/11/22 12:28 Pulse Ox 97 12/11/22 12:28 Oxygen Delivery Method Room Air 12/11/22 12:28 BMI result Body Mass Index 32.3 Tobacco/Smoking Status: Tobacco use Status Tobacco use date assessed 08/13/22 08/13/22 13:53 Patient Tobacco Use Status Never used Tobacco 08/13/22 13:53 e-Cigarette/Vaping Use Never Used 08/13/22 13:53 Thrive Assessment: Date of Thrive Assessment Date Thrive assessed 08/13/22 08/13/22 13:53 Const General: no acute distress HENMT Head: Yes normal to inspection Ears: hearing grossly normal bilaterally Face and sinus: Yes normal facial exam Neck Neck: Yes supple Resp Effort & Inspection: normal respiratory effort Auscultation: clear to auscultation bilaterally Cardio Rhythm: regular rhythm Heart sounds: S1 normal heart sound present and S2 normal heart sound present GI Inspection: Yes normal to inspection Palpation (GI): Soft to palpation Percussion: Yes normal to percussion Auscultation: normal bowel sounds Extrem Other: DIABETIC FOOT EXAM SKIN IS INTACT, MONOFILAMENT AND VIBRATION SENSATION INTACT BILATERALLY General: Yes no clubbing, cyanosis or edema Assessment and Plan Assessment & Plan (1) Essential hypertension: Code(s): I10 - Essential (primary) hypertension Plan: CONTINUE MEDICATIONS (2) Type 2 diabetes mellitus with unspecified complications: Code(s): E11.8 - Type 2 diabetes mellitus with unspecified complications Plan: ADA diet increase physical activity weight loss discussed with the patient. She will continue same medication and have A1c checked today and in 6 months (3) Heart murmur: Comment: mild Echo 2020, Echo 08/23 nl EF, mild Code(s): R01.1 - Cardiac murmur, unspecified Plan: Stable mild (4) Hyperlipidemia: Code(s): E78.5 - Hyperlipidemia, unspecified Plan: Continue statin (5) Morbid obesity: Code(s): E66.01 - Morbid (severe) obesity due to excess calories Plan: Weight loss discussed with the patient (6) Peripheral neuropathy: Code(s): G62.9 - Polyneuropathy, unspecified Plan: Start 300 mg q.h.s. of gabapentin Orders: Orders Comprehensive Met. Panel Today E11.8 - Type 2 diabetes mellitus with unspecified complications, I10 - Essential (primary) hypertension Hemoglobin A1c Today E11.8 - Type 2 diabetes mellitus with unspecified complications, I10 - Essential (primary) hypertension Vitamin B12 and Folate Today G62.9 - Polyneuropathy, unspecified Comprehensive [place]. Panel Fast 6 Months E11.8 - Type 2 diabetes mellitus with unspecified complications, E66.01 - Morbid (severe) obesity due to excess calories, E78.5 - Hyperlipidemia, unspecified, I10 - Essential (primary) hypertension Lipid Panel 6 Months E11.8 - Type 2 diabetes mellitus with unspecified complications, E66.01 - Morbid (severe) obesity due to excess calories, E78.5 - Hyperlipidemia, unspecified, I10 - Essential (primary) hypertension Hemoglobin A1c 6 Months E11.8 - Type 2 diabetes mellitus with unspecified complications, E66.01 - Morbid (severe) obesity due to excess calories, E78.5 - Hyperlipidemia, unspecified, I10 - Essential (primary) hypertension Complete Blood Count Auto Diff 6 Months E11.8 - Type 2 diabetes mellitus with unspecified complications, E66.01 - Morbid (severe) obesity due to excess calories, E78.5 - Hyperlipidemia, unspecified, I10 - Essential (primary) hypertension TSH reflex Free T4 6 Months E11.8 - Type 2 diabetes mellitus with unspecified complications, E66.01 - Morbid (severe) obesity due to excess calories, E78.5 - Hyperlipidemia, unspecified, I10 - Essential (primary) hypertension Microalbumin 24 hr Urine 6 Months E11.8 - Type 2 diabetes mellitus with unspecified complications, E66.01 - Morbid (severe) obesity due to excess calories, E78.5 - Hyperlipidemia, unspecified, I10 - Essential (primary) hypertension Medications: New gabapentin 300 mg PO BEDTIME 90 caps 0RF Refilled ciclopirox 0.77% (Ciclodan) 1 appl topical BID 4 weeks 90 grams 1RF albuterol sulfate 90 mcg/actuation 2 puffs inhalation QID 17 grams 4RF albuterol sulfate 90 mcg/actuation 2 puffs inhalation QID 17 grams 4RF ciclopirox 0.77% (Ciclodan) 1 appl topical BID 4 weeks 90 grams 1RF Coding Level of Care Code Est Pt Level 4 (18720) Diagnoses Essential hypertension I10 Type 2 diabetes mellitus with unspecified complications E11.8 Heart murmur R01.1 Hyperlipidemia E78.5 Morbid obesity E66.01 Peripheral neuropathy G62.9
== END 2022-12-11 13:01 | disposition home or self-care (01) ==
PROVIDERS: Visit Provider Internal Medicine
DX: I10 Essential (primary) hypertension (principal); E11.8 Type 2 diabetes mellitus with unspecified complications; E66.01 Morbid (severe) obesity due to excess calories; Z68.32 Body mass index [BMI] 32.0-32.9, adult; R01.1 Cardiac murmur, unspecified; E78.5 Hyperlipidemia, unspecified; G62.9 Polyneuropathy, unspecified
CPT/HCPCS: 99214

== ENCOUNTER 2022-12-11 12:59 | Outpatient (REF) | payer MEDICARE, SELFPAY ==
[2022-12-11 16:34] LABS: Estimated Average Glucose 140 mg/dL; Hemoglobin A1c % 6.5 %
[2022-12-11 16:49] LABS: Alanine Aminotransferase 17 U/L (0-31); Albumin Level 4.5 g/dL (3.5-5.0); Alkaline Phosphatase 59 U/L (39-117); Anion Gap 13 (12-20); Aspartate Amino Transferase 17 U/L (5-31); Bilirubin Total 0.9 mg/dL (0.0-1.0); Blood Urea Nitrogen 17 mg/dL (9-16); Calcium 10.6 mg/dL (8.4-10.2); Carbon Dioxide 25 mmol/L (22-29); Chloride 108 mmol/L (96-108); Estimated Glomerular Filt Rate 51; Glucose Random 115 mg/dL (60-115); Potassium 4.2 mmol/L (3.3-5.1); Sodium 142 mmol/L (135-145); Total Protein 6.9 g/dL (6.5-8.0)
[2022-12-11 17:21] LABS: Folate 9.6 ng/mL (> or = 4.0); Vitamin B12 331 pg/mL (200-900)
== END 2022-12-11 13:00 | disposition home or self-care (01) ==
LOC: HO.HMGCLDS 12:59
PROVIDERS: PCP Internal Medicine; Visit Provider Internal Medicine
DX: E11.8 Type 2 diabetes mellitus with unspecified complications (principal); I10 Essential (primary) hypertension; G62.9 Polyneuropathy, unspecified
CPT/HCPCS: 36415; 80053; 82607; 82746; 83036

== ENCOUNTER 2023-01-22 13:52 | Outpatient (AMB) | payer MEDICARE, SELFPAY ==
[2023-01-22 14:02] VITALS: BP 136/70; PULSE 84; O2SAT 98; BMI 32.3
--- NOTE | 2023-01-22 14:02 | AM.OFFWIN_ITS ---
Intake Vital Signs 01/22/23 14:02 Height 5 ft 5 in Weight 194 lb BMI 32.3 BP 136/70 Blood Pressure Location Lt brachial Position Sitting Pulse 84 Pulse Source Pulse Oximeter Pulse Oximetry (%) 98 Oxygen Delivery Method Room Air Intake Visit Reasons: EP, Left lower leg redness/pain Intake Note: Pt is here today for a walk in visit. Pt c/o red spot on her lower leg that is painful, burning and itchy. Pt states that she noticed it a month ago and it was not as red. Pt states that she is diabetic. Patient Tobacco Use Status: Never used Tobacco Allergies No Known Allergies [No Known Allergies*] Allergy (Verified 01/22/23 14:24) Medication List - Last Reconciled 01/22/23 by Td Reardon MD albuterol sulfate 90 mcg/actuation 2 puffs inhalation QID blood sugar diagnostic (GenUltimate Test Strip) As directed blood sugar diagnostic (OneTouch Ultra Test strips) qd blood-glucose meter (OneTouch Ultra2 Meter) As directed calcium carbonate-vitamin D3 600 mg-5 mcg (200 unit) (Calcium 600 + D(3)) caps PO celecoxib (Celebrex) 200 mg PO BID 30 days ciclopirox 0.77% (Ciclodan) 1 appl topical BID 4 weeks clotrimazole-betamethasone 1-0.05 % appl topical BID diabetic supplies, [place]. extra depth diabetic shoes with 3 pairs custom heat molded innersoles fenofibrate micronized 67 mg PO DAILY gabapentin 300 mg PO BEDTIME [genultimate lancets ] metformin 1,000 mg PO DAILY metoprolol succinate ER 100 mg PO DAILY omega-3 fatty acids (Fish Oil Concentrate) 1,000 mg PO DAILY omeprazole 20 mg PO DAILY quinine-vitamin E caps PO rosuvastatin (Crestor) 10 mg PO DAILY tolterodine ER 4 mg PO BID 90 days triamcinolone acetonide 0.025% 1 appl topical DAILY valsartan-hydrochlorothiazide 160-25 mg 1 tab PO DAILY HPI EP, Left lower leg redness/pain HPI Details 77-year-old female presents to the office for a sick visit. Patient is complaining of redness in the left lower leg. Symptoms started a few weeks ago. It is now painful. [facility] Medical History Bladder hypertonicity Essential hypertension Hyperlipidemia Morbid obesity Normal colonoscopy BEKAH (obstructive sleep apnea) Retention, urine Urgency of micturition UTI (urinary tract infection) Vitamin D deficiency Surgical History History of bilateral cataract extraction History of carpal tunnel release of both wrists History of section History of cholecystectomy History of shoulder surgery History of total knee replacement S/P knee surgery Family History Mother Breast cancer Myocardial infarction Father Myocardial infarction Prostate cancer Social History Household Members Other:: , lives alone, 4 sons, Housing: House Patient Tobacco Use Status: Never used Tobacco e-Cigarette/Vaping Use: Never Used Second Hand Smoke Exposure: No service: No Current occupational status: retired Current occupational exposures/hazards: No Cognitive needs: No Hearing needs: No Vision needs: Yes Physical Exam Vital Signs: Last Vital Signs Pulse 84 01/22/23 14:02 BP 136/70 01/22/23 14:02 Pulse Ox 98 01/22/23 14:02 Oxygen Delivery Method Room Air 01/22/23 14:02 BMI result Body Mass Index 32.3 Extrem Other: Left leg: Erythematous area over an engorged vein. Mild tenderness to touch. Assessment & Plan Assessment & Plan (1) Cellulitis of leg, left: Code(s): L03.116 - Cellulitis of left lower limb Plan: Antibiotics called in. If symptoms do not improve to follow-up here. Coding Level of Care Code Est Pt Level 3 (69029) Diagnoses Cellulitis of leg, left L03.116
== END 2023-01-22 14:48 | disposition home or self-care (01) ==
PROVIDERS: PCP Internal Medicine; Visit Provider Internal Medicine
DX: L03.116 Cellulitis of left lower limb (principal)
CPT/HCPCS: 99213

== ENCOUNTER 2023-02-11 11:22 | Outpatient (AMB) | payer MEDICARE, SELFPAY ==
[2023-02-11 11:27] VITALS: BP 122/66; PULSE 94; O2SAT 97; BMI 32.1
--- NOTE | 2023-02-11 11:27 | MHC.PC.OV ---
Vital Signs 02/11/23 11:27 Height 5 ft 5 in Weight 193 lb BMI 32.1 BP 122/66 Blood Pressure Location Lt brachial Position Sitting Pulse 94 Pulse Source Pulse Oximeter Pulse Oximetry (%) 97 Oxygen Delivery Method Room Air Intake Visit Reasons: Lower leg pain redness not better Intake Note: Pt is here today for a sick visit. Pt states that she still has redness, pain on her lower L leg and the area is hot to the touch. Pt states that she was seen in our walk in already for this and was given antibiotic. Pt states that she finished it but its not better its worst. Allergies No Known Allergies [No Known Allergies*] Allergy (Verified 02/11/23 11:31) Medication List - Last Reconciled 02/11/23 by Saige Salamanca MD albuterol sulfate 90 mcg/actuation 2 puffs inhalation QID blood sugar diagnostic (GenUltimate Test Strip) As directed blood sugar diagnostic (OneTouch Ultra Test strips) qd blood-glucose meter (OneTouch Ultra2 Meter) As directed calcium carbonate-vitamin D3 600 mg-5 mcg (200 unit) (Calcium 600 + D(3)) caps PO celecoxib (Celebrex) 200 mg PO BID 30 days ciclopirox 0.77% (Ciclodan) 1 appl topical BID 4 weeks clotrimazole-betamethasone 1-0.05 % appl topical BID diabetic supplies, [place]. extra depth diabetic shoes with 3 pairs custom heat molded innersoles fenofibrate micronized 67 mg PO DAILY gabapentin 300 mg PO BEDTIME [genultimate lancets ] metformin 1,000 mg PO DAILY metoprolol succinate ER 100 mg PO DAILY omega-3 fatty acids (Fish Oil Concentrate) 1,000 mg PO DAILY omeprazole 20 mg PO DAILY quinine-vitamin E caps PO rosuvastatin (Crestor) 10 mg PO DAILY tolterodine ER 4 mg PO BID 90 days triamcinolone acetonide 0.025% 1 appl topical DAILY valsartan-hydrochlorothiazide 160-25 mg 1 tab PO DAILY Tobacco use date assessed: 02/11/23 Dental Screening Dental Screen Date: 02/11/23 Did you have a dental visit in the last 12 months?: Yes Did you have a dental problem in the last 6 months where you did not have access to dental care?: No Was dental information given to patient?: Patient has dentist HPI Lower leg pain redness not better HPI Details PATIENT COMPLAINS OF LEFT LOWER EXTREMITY PAIN SWELLING AND REDNESS FOR 2 WEEKS. She was seen in urgent care and prescribed Keflex without significant improvement. Type 2 diabetes and hypertension are stable on current medications. [facility] Medical History Bladder hypertonicity Essential hypertension Hyperlipidemia Morbid obesity Normal colonoscopy BEKAH (obstructive sleep apnea) Retention, urine Urgency of micturition UTI (urinary tract infection) Vitamin D deficiency Surgical History History of bilateral cataract extraction History of carpal tunnel release of both wrists History of section History of cholecystectomy History of shoulder surgery History of total knee replacement S/P knee surgery Family History Mother Breast cancer Myocardial infarction Father Myocardial infarction Prostate cancer Social History Household Members Other:: , lives alone, 4 sons, Housing: House Patient Tobacco Use Status: Never used Tobacco e-Cigarette/Vaping Use: Never Used Second Hand Smoke Exposure: No service: No Current occupational status: retired Current occupational exposures/hazards: No Cognitive needs: No Hearing needs: No Vision needs: Yes Questionnaire Thrive Questionnaire Date Thrive assessed: 08/13/22 AUDIT C Alcohol Use Questionnaire (AUDIT-C) 1. How often do you have a drink containing alcohol?: Never 3. How often do you have six or more drinks on one occasion?: Never Total Score: 0 JEYSON-7 AMB Questionnaire JEYSON-7 Date JEYSON - 7 assessed: 08/13/22 Source: Developed by Drs. Prudencio Ferreira, Micki Krishnan, Eric Jones and colleagues, with an educational francois from [employer]. Review of Systems Const All systems reviewed & are unremarkable except as noted in HPI and below Reports no additional complaints Eyes Reports no additional complaints ENT Reports no additional complaints Card Reports no additional complaints Resp Reports no additional complaints GI Reports no additional complaints Physical exam (Primary Care) Vital Signs: Last Vital Signs Pulse 94 02/11/23 11:27 BP 122/66 02/11/23 11:27 Pulse Ox 97 02/11/23 11:27 Oxygen Delivery Method Room Air 02/11/23 11:27 BMI result Body Mass Index 32.1 Tobacco/Smoking Status: Tobacco use Status Tobacco use date assessed 02/11/23 02/11/23 11:32 Patient Tobacco Use Status Never used Tobacco 02/11/23 11:32 e-Cigarette/Vaping Use Never Used 02/11/23 11:32 Thrive Assessment: Date of Thrive Assessment Date Thrive assessed 08/13/22 02/11/23 11:32 Const General: no acute distress HENMT Face and sinus: Yes normal facial exam Neck Neck: Yes supple Resp Effort & Inspection: normal respiratory effort Auscultation: clear to auscultation bilaterally Cardio Rhythm: regular rhythm Heart sounds: S1 normal heart sound present and S2 normal heart sound present Extrem Other: Left lower extremity 1+ pitting edema erythema warmth and tenderness Assessment and Plan Assessment & Plan (1) Left leg swelling: Code(s): M79.89 - Other specified soft tissue disorders Plan: Obtain venous Doppler to rule out DVT, ibuprofen 400 mg 3 times a day for 10 days for localized phlebitis is prescribed . patient was advised to elevate lower extremity and wear compression stockings (2) Type 2 diabetes mellitus with unspecified complications: Code(s): E11.8 - Type 2 diabetes mellitus with unspecified complications Plan: Continue current medications (3) Essential hypertension: Code(s): I10 - Essential (primary) hypertension Plan: Continue current medications Orders: Orders US venous duplex LE LT Today M79.89 - Other specified soft tissue disorders Referrals Gastroenterology Referral Z00.00 - Encounter for general adult medical examination without abnormal findings Medications: New ibuprofen 400 mg PO Q8H 30 tabs 0RF Discontinued celecoxib (Celebrex) Discontinued Reason: Doctor's Order 200 mg PO BID 30 days 60 caps 3RF Coding Level of Care Code Est Pt Level 3 (18262) Diagnoses Left leg swelling M79.89 Type 2 diabetes mellitus with unspecified complications E11.8 Essential hypertension I10
== END 2023-02-11 12:04 | disposition home or self-care (01) ==
LOC: HO.HMGC 11:22
PROVIDERS: PCP Internal Medicine; Visit Provider Internal Medicine
DX: M79.89 Other specified soft tissue disorders (principal); E11.8 Type 2 diabetes mellitus with unspecified complications; I10 Essential (primary) hypertension
CPT/HCPCS: 99213

== ENCOUNTER 2023-02-11 12:28 | Outpatient (REF) | payer MEDICARE, SELFPAY ==
--- NOTE | ~2023-02-11 | US_ITS ---
EXAMINATION: US VENOUS ULTRASOUND WITH DOPPLER LOWER EXTREMITY, LEFT CLINICAL INFORMATION: Swelling COMPARISON: Previous ultrasound January 2019 TECHNIQUE: Ultrasound of the deep veins is performed from the hip to the calf with compression sonography and color and pulse Doppler assessment. Spectral analysis with color-flow imaging is performed. FINDINGS: There is normal venous compression and respiratory variation and augmented flow. The visualized common femoral vein, superficial femoral vein, profunda femoral vein, popliteal vein, and visualized trifurcation region shows no evidence of deep venous thrombosis. Peroneal veins are not well visualized. There is previous greater saphenous vein ablation. There is no significant popliteal fossa cyst. US/US venous duplex LE LT IMPRESSION: No DVT demonstrated in the left lower extremity. Peroneal veins not well visualized in the calf.
== END 2023-02-11 12:29 | disposition home or self-care (01) ==
LOC: HO.HMGCX 12:28
PROVIDERS: PCP Internal Medicine; Visit Provider Internal Medicine
DX: M79.89 Other specified soft tissue disorders (principal); M79.605 Pain in left leg
CPT/HCPCS: 93971

== ENCOUNTER 2023-03-18 10:24 | Outpatient (REF) | payer MEDICARE, SELFPAY ==
--- NOTE | ~2023-03-18 | MM_ITS ---
EXAMINATION: MM SCREENING DIGITAL BREAST TOMOSYNTHESIS, BILATERAL CLINICAL INFORMATION: Screening. Asymptomatic. COMPARISON: Mammography: This study is compared with prior exams dating back to 2009. TECHNIQUE: Digital breast tomosynthesis is performed in both the craniocaudal and mediolateral oblique views along with computer-aided detection (CAD). Synthesized 2D images are generated from the tomosynthesis. FINDINGS: The breasts are almost entirely fatty (ACR BI-RADS breast composition Category a). There are no significant masses, abnormal calcifications, or other abnormalities. MM/MM tomosynthesis screening BI IMPRESSION: No mammographic evidence of malignancy. ASSESSMENT: BI-RADS BI-RADS 1 - Negative RECOMMENDATION: Routine annual mammography screening. 1 year F/U This examination should not preclude the clinical evaluation of a suspicious palpable abnormality. This patient's information was entered into a reminder system with a target due date for their next mammogram.
== END 2023-03-18 10:25 | disposition home or self-care (01) ==
LOC: HO.MAMMO 10:24
PROVIDERS: PCP Internal Medicine; Visit Provider Internal Medicine
DX: Z12.31 Encounter for screening mammogram for malignant neoplasm of breast (principal)
CPT/HCPCS: 77063; 77067

== ENCOUNTER → 2023-03-18 10:45 | Outpatient (BNV) | payer MEDICARE, SELFPAY | PROVIDERS: PCP Internal Medicine; Visit Provider Radiology Diagnostic Radiology | DX: Z12.31 Encounter for screening mammogram for malignant neoplasm of breast (principal) | CPT/HCPCS: 77063; 77067 ==

== ENCOUNTER 2023-03-21 14:25 | Outpatient (AMB) | payer MEDICARE, SELFPAY ==
--- NOTE | 2023-03-21 14:31 | A.OFFVIS_ITS ---
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 Complaints include pain over varicosities, swelling of lower extremities, cramping, fatigue, and heaviness of the lower extremities. It has been affecting there daily activities including walking. It is noted more so in left leg. She notes that these veins began at and mood has become more pronounced after her left TKA Patient denies any previous venous surgery or injections. Patient denies any history of DVT/ PE. Patient denies any history of phlebitis. Trial of compression includes - [id number] They now present for vascular evaluation regarding their varicose veins. COUNTS INCLUDE 234 BEDS AT THE [facility] Medical History Retention, urine UTI (urinary tract infection) Vitamin D deficiency Hyperlipidemia Normal colonoscopy Bladder hypertonicity Urgency of micturition BEKAH (obstructive sleep apnea) Morbid obesity Essential hypertension Surgical History S/P knee surgery History of shoulder surgery History of total knee replacement History of cholecystectomy History of bilateral cataract extraction History of carpal tunnel release of both wrists History of section Family History Mother Breast cancer Myocardial infarction Father Myocardial infarction Prostate cancer Social History Household Members Other:: , lives alone, 4 sons, Housing: House Patient Tobacco Use Status: Never used Tobacco e-Cigarette/Vaping Use: Never Used Second Hand Smoke Exposure: No service: No Current occupational status: retired Current occupational exposures/hazards: No Cognitive needs: No Hearing needs: No Vision needs: Yes Review of Systems Const Reports as per HPI ENT Reports no additional complaints Card Denies chest pain, Denies chest pain at rest and Denies chest pain with activity Resp Denies chest congestion and Denies cough GI Reports no additional complaints Musc Details: pain over varicosities, aching of lower extremities, swelling, cramping, heaviness and tiredness, itching Denies abnormal gait Skin/Breast Reports pruritus and Denies wounds Neuro Reports no additional complaints and Denies abnormal gait Psych Denies no additional complaints Physical Exam Vital Signs: BMI result Body Mass Index 32.1 Const General: cooperative, healthy appearing and comfortable Orientation/consciousness: oriented to person, oriented to place and oriented to time Neck Carotids: no bruits Chest Chest palpation & inspection: normal inspection of the chest and normal palpation of entire chest wall Resp Effort & Inspection: normal respiratory effort and able to speak in complete sentences Cardio Rate: regular rate Heart sounds: S1 normal heart sound present and S2 normal heart sound present Peripheral pulses: Peripheral pulses 2+ throughout GI Inspection: Yes normal to inspection Skin Other: +2 edema, large rope-like varicosities greater than 4 mm CEAP Classification C4 - skin color changes Ep - Etiology Primary As - superficial veins P - reflux General skin exam: dry skin Neuro General: oriented to person, oriented to place and oriented to time Extrem Right lower extremity: full ROM, normal capillary refill and edema Left lower extremity: full ROM, normal capillary refill and edema Psych Mental Status: mental status grossly normal Assessment & Plan Assessment & Plan (1) Varicose veins of left lower extremity with inflammation: Code(s): I83.12 - Varicose veins of left lower extremity with inflammation Plan: In short, the patient has evidence of venous insufficiency. I have discussed the pathophysiology with the patient. In addition I have provided informational material regarding venous disease to the patient. We have discussed conservative measures including compression, elevation, and exercise. I have also provided a handout regarding appropriate use of compression stockings and where to purchase good compression stockings as well. I have taken the liberty of ordering venous insufficiency testing with the patient. They will follow up with me after testing. The patient had an opportunity to ask questions regarding the treatment plan. All questions were answered. Imaging studies, laboratory studies and physical exam results were discussed and reviewed in detail. No major barriers to understanding were identified. The patient expressed understanding and agreement with the above treatment plan. The patient is aware they should contact our office by phone for worsening of the current condition or the appearance of new symptoms. Thank you for allowing me to participate in the vascular care of this patient. If you have any questions or concerns regarding the treatment for the above condition please do not hesitate to contact me. The office telephone contact is [phone]. This note is constructed using voice recognition software. While every effort has been made to ensure accuracy, exit booth agent errors may have been included. Thank you for allowing me to participate in the care of your patient. Yours sincerely, Wayne Sutton MD, FACS, R.P.V.I. Orders: Orders US venous duplex LE BI 1 Week I83.12 - Varicose veins of left lower extremity with inflammation Coding Level of Care Code New Pt Level 4 (55313) Diagnoses Varicose veins of left lower extremity with inflammation I83.12
[2023-03-21 14:35] VITALS: BMI 32.1
== END 2023-03-21 15:00 | disposition home or self-care (01) ==
PROVIDERS: PCP Internal Medicine; Visit Provider Surgery Vascular Surgery
DX: I83.12 Varicose veins of left lower extremity with inflammation (principal)
CPT/HCPCS: 99203

== ENCOUNTER → 2023-03-21 14:25 | Outpatient (BNVA) | payer MEDICARE, SELFPAY | PROVIDERS: PCP Internal Medicine; Visit Provider Surgery Vascular Surgery ==

== ENCOUNTER 2023-04-02 07:56 | Outpatient (REF) | payer MEDICARE, SELFPAY ==
--- NOTE | ~2023-04-02 | US_ITS ---
EXAMINATION: RIGHT and LEFT LOWER EXTREMITY VENOUS ULTRASOUND (Reflux Exam) CLINICAL INDICATION: Varicose veins lower extremity COMPARISON: Ultrasound venous Doppler lower extremity left from 02/11/2023, venous insufficiency study from 06/08/2018 TECHNIQUE: Color flow triplex imaging and compression Doppler was performed to evaluate both the deep and the superficial systems bilaterally. To evaluate the superficial system, the examination was performed in the upright position. Color-flow Doppler ultrasound and compression ultrasound were utilized. In addition, maneuvers were utilized to demonstrate reflux. FINDINGS: 1. DEEP VENOUS ULTRASOUND OF THE RIGHT LOWER EXTREMITY: Respiratory variation, normal compression and augmented flow are noted in the right common femoral vein, right femoral vein, as well as the right popliteal vein and there is no evidence of deep venous thrombosis at these locations. There is reflux in the deep system in either the common femoral vein or the popliteal vein. . There is no evidence of a Pruitt's cyst. 2. SUPERFICIAL ULTRASOUND WITH DOPPLER OF RIGHT LOWER EXTREMITY: The right great saphenous vein at the saphenofemoral junction measures 7 mm with reflux, with ablation of the remaining segments. The right small saphenous vein measures 2 mm and shows no reflux. Multiple perforators with reflux. Multiple varicose veins with reflux. Right gastroparesis vein without reflux. Complex cystic focus without vascularity in the right medial knee measuring 1.1 x 1.1 x 0.9 cm. 3. DEEP VENOUS ULTRASOUND OF THE LEFT LOWER EXTREMITY: Respiratory variation, normal compression and augmented flow are noted in the left common femoral vein, femoral vein as well as the left popliteal vein and there is no evidence of deep venous thrombosis at these locations. There is reflux in the deep system in the popliteal vein. There is no evidence of a Pruitt's cyst. 4. SUPERFICIAL ULTRASOUND WITH DOPPLER OF LEFT LOWER EXTREMITY: Left great saphenous vein at the saphenofemoral junction measures 11 mm without reflux, with ablation of remaining segments. The left small saphenous vein measures 3 mm and shows reflux. Multiple perforators with reflux. Multiple varicose veins with reflux. Left gastrocnemius vein with reflux. Cystic focus in the left popliteal fossa medially potentially representing effusion measuring 4.9 x 1.5 x 3.6 cm. US/US venous duplex LE BI IMPRESSION: 1. RIGHT: Reflux of the deep system. Status post ablation of the superficial system with reflux of the SVJ. Multiple perforators. Multiple varicose veins with reflux. Complex cystic focus without vascularity in the right medial knee measuring 1.1 x 1.1 x 0.9 cm. 2. LEFT: Reflux of the deep system. Status post ablation of the superficial system without reflux at the SVJ. Multiple perforators with reflux. Multiple varicose veins with reflux. Left gastrocnemius vein with reflux. Cystic focus in the left popliteal fossa medially potentially representing effusion measuring 4.9 x 1.5 x 3.6 cm.
== END 2023-04-02 07:57 | disposition home or self-care (01) ==
LOC: HO.US 07:56
PROVIDERS: PCP Internal Medicine; Visit Provider Surgery Vascular Surgery
DX: I83.12 Varicose veins of left lower extremity with inflammation (principal)
CPT/HCPCS: 93970

== ENCOUNTER 2023-04-16 08:45 | Outpatient (AMB) | payer MEDICARE, SELFPAY ==
[2023-04-16 08:55] VITALS: BMI 32.1
--- NOTE | 2023-04-16 08:55 | A.OFFVIS_ITS ---
Intake Vital Signs 04/16/23 08:55 Height 5 ft 5 in Weight 193 lb BMI 32.1 Intake Visit Reasons: FU US Intake Note: follow up US 04/02/23, bilateral LE pain with Left LE worse than Right LE, has a red spot. 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 She has had prior bilateral ablation is. She continues to complain of this painful inflamed area in her left calf. She does have significant varicosities of the lower extremity. She now presents for follow-up with venous insufficiency testing. [facility] Medical History Retention, urine UTI (urinary tract infection) Vitamin D deficiency Hyperlipidemia Normal colonoscopy Bladder hypertonicity Urgency of micturition BEKAH (obstructive sleep apnea) Morbid obesity Essential hypertension Surgical History S/P knee surgery History of shoulder surgery History of total knee replacement History of cholecystectomy History of bilateral cataract extraction History of carpal tunnel release of both wrists History of section Family History Mother Breast cancer Myocardial infarction Father Myocardial infarction Prostate cancer Social History Household Members Other:: , lives alone, 4 sons, Housing: House Patient Tobacco Use Status: Never used Tobacco e-Cigarette/Vaping Use: Never Used Second Hand Smoke Exposure: No service: No Current occupational status: retired Current occupational exposures/hazards: No Cognitive needs: No Hearing needs: No Vision needs: Yes Review of Systems Const Reports as per HPI ENT Reports no additional complaints Card Denies chest pain, Denies chest pain at rest and Denies chest pain with activity Resp Denies chest congestion and Denies cough GI Reports no additional complaints Musc Details: pain over varicosities, aching of lower extremities, swelling, cramping, heaviness and tiredness, itching Denies abnormal gait Skin/Breast Reports pruritus and Denies wounds Neuro Reports no additional complaints and Denies abnormal gait Psych Denies no additional complaints Physical Exam Vital Signs: BMI result Body Mass Index 32.1 Const General: cooperative, healthy appearing and comfortable Orientation/consciousness: oriented to person, oriented to place and oriented to time Neck Carotids: no bruits Chest Chest palpation & inspection: normal inspection of the chest and normal palpation of entire chest wall Resp Effort & Inspection: normal respiratory effort and able to speak in complete sentences Cardio Rate: regular rate Heart sounds: S1 normal heart sound present and S2 normal heart sound present Peripheral pulses: Peripheral pulses 2+ throughout GI Inspection: Yes normal to inspection Skin Other: +2 edema, large rope-like varicosities greater than 4 mm left medial calf CEAP Classification C4 - skin color changes Ep - Etiology Primary As - superficial veins P - reflux General skin exam: dry skin Neuro General: oriented to person, oriented to place and oriented to time Extrem Right lower extremity: full ROM, normal capillary refill and edema Left lower extremity: full ROM, normal capillary refill and edema Psych Mental Status: mental status grossly normal Results Reviewed Results Reviewed: Brief summary of venous insufficiency testing is as follows: right great saphenous vein: negative right small saphenous vein: negative right accessory vein: none present left great saphenous vein: negative left small saphenous vein: Positive left accessory vein: none present Please note there is no evidence of any venous aneurysms or significant tortuosity Assessment & Plan Assessment & Plan (1) Varicose veins of left lower extremity with inflammation: Code(s): I83.12 - Varicose veins of left lower extremity with inflammation Plan: This patient has varicose veins with inflammation. They continue to be a source of discomfort for the patient. The patient has tried conservative jamie tment with compression, leg elevation and exercise program for over 3 months time. They have been compliant with all treatment. This has provided minimal relief for the patient. I do not anticipate this course of treatment will alter the underlying etiology. The patient has been scheduled for lower extremity venous treatment inclusive of --- left small saphenous vein radiofrequency ablation. Risks, benefits, and complications of this procedure has been discussed in detail with the patient including but not limited to bleeding, infection, and the development of a DVT. The patient has demonstrated a clear understanding and has consented. We will schedule the patient as soon as possible. Thank you for allowing us to participate in this patient's care. If there are any questions or concerns please do not hesitate to contact us. Coding Level of Care Code Est Pt Level 4 (50274) Diagnoses Varicose veins of left lower extremity with inflammation I83.12
== END 2023-04-16 09:19 | disposition home or self-care (01) ==
PROVIDERS: PCP Internal Medicine; Visit Provider Surgery Vascular Surgery
DX: I83.12 Varicose veins of left lower extremity with inflammation (principal)
CPT/HCPCS: 99214

== ENCOUNTER → 2023-04-16 08:45 | Outpatient (BNVA) | payer MEDICARE, SELFPAY | PROVIDERS: PCP Internal Medicine; Visit Provider Surgery Vascular Surgery | DX: I83.12 Varicose veins of left lower extremity with inflammation (principal) | CPT/HCPCS: 99212 ==

== ENCOUNTER 2023-04-19 07:41 | Outpatient (AMB) | payer MEDICARE, SELFPAY ==
[2023-04-19 07:42] VITALS: BMI 32.1
--- NOTE | 2023-04-19 07:42 | MHC.OFFVIS ---
Intake Vital Signs 04/19/23 07:42 Height 5 ft 5 in Weight 193 lb BMI 32.1 Intake Visit Reasons: Left SSV RFA ( venclose) Allergies No Known Allergies [No Known Allergies*] Allergy (Verified 04/19/23 07:42) [facility] Medical History Retention, urine UTI (urinary tract infection) Vitamin D deficiency Hyperlipidemia Normal colonoscopy Bladder hypertonicity Urgency of micturition BEKAH (obstructive sleep apnea) Morbid obesity Essential hypertension Surgical History S/P knee surgery History of shoulder surgery History of total knee replacement History of cholecystectomy History of bilateral cataract extraction History of carpal tunnel release of both wrists History of section Family History Mother Breast cancer Myocardial infarction Father Myocardial infarction Prostate cancer Social History Household Members Other:: , lives alone, 4 sons, Housing: House Patient Tobacco Use Status: Never used Tobacco e-Cigarette/Vaping Use: Never Used Second Hand Smoke Exposure: No service: No Current occupational status: retired Current occupational exposures/hazards: No Cognitive needs: No Hearing needs: No Vision needs: Yes Physical Exam Vital Signs: BMI result Body Mass Index 32.1 Office Procedures Vascular Office Procedure Details Details: Diagnosis: Varicose veins with inflammation of left leg Procedure: Endovenous radiofrequency ablation of the left small saphenous vein(s) of the lower extremity with Venclose Anesthesia: Local infiltration 5 cc, Tumescent 150 cc. Estimated Blood Loss: Minimal The patient was transferred to the procedure suite and the insufficient small saphenous vein was mapped by ultrasound and diagrammed on the overlying skin. The depth and diameter of the vein(s) to be treated was documented. The varicose tributary veins and suitable access sites were identified and mapped as well. The patient was then positioned prone on the procedure table. The affected limb was prepped and draped in the usual sterile fashion. The RF catheter was placed on the sterile field, flushed and wiped down, prepared, and connected by a sterile cable. The patient was placed in a prone position and local anesthesia was instilled in the skin overlying the access site. A skin incision was made overlying the identified and mapped small saphenous vein entry site. The vein was accessed using ultrasound guidance and the Seldinger technique, a guide wire was introduced through the needle, which was then exchanged over the guide wire for a 6F sheath, which was secured in place. The guide wire was removed and the sheath was flushed. The RF catheter was placed into the vein through the sheath and preferentially, imaging was used to place the catheter tip just inferior to the saphenopopliteal junction. Additionally, it was confirmed by ultrasound guidance that the catheter tip was also placed a minimum of 1.5cm distal to the saphenopopliteal junction. After the RF catheter position was verified by ultrasound, tumescent anesthesia was infiltrated, under ultrasound guidance, precisely into the perivenous compartment along the entire length of vein from the entry site to the saphenofemoral junction until a halo of fluid was noted around the vein. The patient was appropriately position. After RF catheter position was again confirmed with ultrasound imaging, and under direct external compression along the length of the heating element, RF energy was applied. The vein was segmentally ablated by heating a 10 cm segment and then indexing the catheter forward by 9.5 cm until the treatment length is completed. Device temperature was maintained at 120 plus or minus 5 degrees C with an initial power level of 4W/cm dropping to below 2W/cm for each treatment. Total vein length treated 10 cm Total cycles of RF 2. Repeat ultrasound of the saphenous vein was performed, confirming successful treatment. The catheter and sheath were withdrawn and hemostasis established with direct pressure. After assuring hemostasis, the skin incision over the saphenous vein was closed with a bandage and a compression wrap was applied from the level of the foot to the most proximal level of the thigh. Discharge instructions were given to the patient inclusive of follow-up ultrasound [place] [address] - Endovenous RF, 1st Vein All charges added?: Procedure code (CPT) selection complete Coding Level of Care Code Procedure Only CPT Codes Details - Vascular 1: 02986 - Endovenous RF, 1st Vein ([id number])
== END 2023-04-19 08:27 | disposition home or self-care (01) ==
PROVIDERS: PCP Internal Medicine; Visit Provider Surgery Vascular Surgery
DX: I83.12 Varicose veins of left lower extremity with inflammation (principal)
CPT/HCPCS: 36475

== ENCOUNTER → 2023-04-19 07:41 | Outpatient (BNVA) | payer MEDICARE, SELFPAY | PROVIDERS: PCP Internal Medicine; Visit Provider Surgery Vascular Surgery | DX: I83.12 Varicose veins of left lower extremity with inflammation (principal) | CPT/HCPCS: 36475 ==

== ENCOUNTER 2023-04-22 11:21 | Outpatient (REF) | payer MEDICARE, SELFPAY ==
--- NOTE | ~2023-04-22 | US_ITS ---
EXAMINATION: US TRIPLEX SCANNING OF LEFT LOWER EXTREMITY; SUPERFICIAL ULTRASOUND WITH DOPPLER OF LEFT LOWER EXTREMITY CLINICAL INFORMATION: Status post ablation of a greater than 32 cm segment of the left small saphenous vein originally performed on 04/19/2023. COMPARISON: Preprocedure studies. TECHNIQUE: Color-flow triplex imaging and compression Doppler were performed as well as superficial ultrasound with Doppler. FINDINGS: Respiratory variation, normal compression and augmented flow are noted throughout the lower extremity deep venous system. The visualized common femoral vein, femoral vein, profunda femoral vein, popliteal vein and the calf veins show no evidence of deep venous thrombosis. The left small saphenous vein is occluded from the access site to just before the saphenopopliteal junction. There is no extension of thrombus into the deep system. A fluid collection is noted in the left knee medially consistent with a Pruitt's cyst measuring 3.6 x 1.4 x 2.1 cm. The femoral vein in the groin appears normal. The great saphenous vein has also been ablated in the past and is occluded to a distance of about 2.4 cm from the saphenofemoral junction. No clot is seen in the left common femoral vein US/US venous duplex LE LT IMPRESSION: 1. No evidence of deep venous thrombosis. 2. Excellent appearance status post ablation of the left small saphenous vein and previously left great saphenous vein.
== END 2023-04-22 11:22 | disposition home or self-care (01) ==
LOC: HO.HMGCX 11:21
PROVIDERS: PCP Internal Medicine; Visit Provider Surgery Vascular Surgery
DX: M79.605 Pain in left leg (principal)
CPT/HCPCS: 93971

== ENCOUNTER 2023-05-09 09:37 | Outpatient (AMB) | payer MEDICARE, SELFPAY ==
[2023-05-09 09:55] VITALS: BMI 32.1
--- NOTE | 2023-05-09 09:55 | MHC.OFFVIS ---
Intake Vital Signs 05/09/23 09:55 Height 5 ft 5 in Weight 193 lb BMI 32.1 Intake Visit Reasons: Follow up venaseal Intake Note: 2 week follow up Left SSV RFA, pt states she is doing worse since the procedure Electron Gun Inspector Required: Yes Electron Gun Inspector Name: Sury Information Interpreted: clinical only Allergies No Known Allergies [No Known Allergies*] Allergy (Verified 05/09/23 10:04) HPI Follow up venaseal HPI Details Complex 70-year-old female presents for follow-up status post left small saphenous vein radiofrequency ablation. She reports she continues to have some swelling and discomfort. She does have a little bit of postprocedure phlebitis. She is quite concerned about this overall situation. She now presents for routine follow-up. Of note postprocedure ultrasound was negative for DVT. In addition entire visit was conducted with recycling coordinator present [facility] Medical History Retention, urine UTI (urinary tract infection) Vitamin D deficiency Hyperlipidemia Normal colonoscopy Bladder hypertonicity Urgency of micturition BEKAH (obstructive sleep apnea) Morbid obesity Essential hypertension Surgical History S/P knee surgery History of shoulder surgery History of total knee replacement History of cholecystectomy History of bilateral cataract extraction History of carpal tunnel release of both wrists History of section Family History Mother Breast cancer Myocardial infarction Father Myocardial infarction Prostate cancer Social History Household Members Other:: , lives alone, 4 sons, Housing: House Patient Tobacco Use Status: Never used Tobacco e-Cigarette/Vaping Use: Never Used Second Hand Smoke Exposure: No service: No Current occupational status: retired Current occupational exposures/hazards: No Cognitive needs: No Hearing needs: No Vision needs: Yes Review of Systems Const Reports as per HPI ENT Reports no additional complaints Card Denies chest pain, Denies chest pain at rest and Denies chest pain with activity Resp Denies chest congestion and Denies cough GI Reports no additional complaints Musc Details: pain over varicosities, aching of lower extremities, swelling, cramping, heaviness and tiredness, itching Denies abnormal gait Skin/Breast Reports pruritus and Denies wounds Neuro Reports no additional complaints and Denies abnormal gait Psych Denies no additional complaints Physical Exam Vital Signs: BMI result Body Mass Index 32.1 Const General: cooperative, healthy appearing and comfortable Orientation/consciousness: oriented to person, oriented to place and oriented to time Neck Carotids: no bruits Chest Chest palpation & inspection: normal inspection of the chest and normal palpation of entire chest wall Resp Effort & Inspection: normal respiratory effort and able to speak in complete sentences Cardio Rate: regular rate Heart sounds: S1 normal heart sound present and S2 normal heart sound present Peripheral pulses: Peripheral pulses 2+ throughout GI Inspection: Yes normal to inspection Skin Other: +2 edema, large rope-like varicosities greater than 4 mm CEAP Classification C4 - skin color changes Ep - Etiology Primary As - superficial veins P - reflux General skin exam: dry skin Neuro General: oriented to person, oriented to place and oriented to time Extrem Right lower extremity: full ROM, normal capillary refill and edema Left lower extremity: full ROM, normal capillary refill and edema Psych Mental Status: mental status grossly normal Assessment & Plan Assessment & Plan (1) Varicose veins of left lower extremity with inflammation: Comment: 04/19/2023 - left small saphenous vein radiofrequency ablation Code(s): I83.12 - Varicose veins of left lower extremity with inflammation Plan: In short patient appears to be doing well post procedure. She does have some postprocedure phlebitis in we did discuss use of warm compresses and nonsteroidal such as Aleve. I did tell her that this should improve over time. She should wear compression stockings. She will follow up with us in approximately 3 months time for vein check. Thank you for allowing us to assist in her care. If there are any questions or concerns please do not hesitate to contact us. Coding Level of Care Code Est Pt Level 4 (49470) Diagnoses Varicose veins of left lower extremity with inflammation I83.12
== END 2023-05-09 10:25 | disposition home or self-care (01) ==
PROVIDERS: PCP Internal Medicine; Visit Provider Surgery Vascular Surgery
DX: I83.12 Varicose veins of left lower extremity with inflammation (principal)
CPT/HCPCS: 99213

== ENCOUNTER → 2023-05-09 09:37 | Outpatient (BNVA) | payer MEDICARE, SELFPAY | PROVIDERS: PCP Internal Medicine; Visit Provider Surgery Vascular Surgery | DX: I83.12 Varicose veins of left lower extremity with inflammation (principal) | CPT/HCPCS: 99212 ==

== ENCOUNTER → 2023-06-12 10:36 | Outpatient (REF) | payer MEDICARE, SELFPAY ==
--- NOTE | 2023-06-12 10:38 | CA_ITS ---
Transthoracic Echocardiogram Patient (Last, First, Middle): Nimo Emanuel, Gender: Female Date of : 1945 Age: 78 Procedure Date: 06/12/2023 Procedure Type: Transthoracic Echocardiogram Location: OP Height: 152.4 cm Weight: 88.45 kg BSA: 1.85 m2 Heart Rate: bpm BP: 130 / 80 mmHg Subsea Engineer: GRETA Referring MD: Hiro Diop MD Printing Equipment Mechanic: Ranjit Mas MD Symptoms: I35.0 - Nonrheumatic aortic (valve) stenosis Study Quality: Fair ECG Rhythm: Sinus Conclusions: - 1. Normal LV ejection fraction 55-60% with impaired relaxation filling pattern 2. Shfd-dn-odkthody aortic stenosis 3. No gross pericardial effusion Findings Left Ventricle Normal left ventricular size, thickness, and systolic function. The visually estimated ejection fraction is between 55-60%. Spectral Doppler is indicative of an impaired relaxation filling pattern. E/E prime ratio is between 8 and 15 consistent with indeterminate filling pressures. Wall Motion Rest Echo Findings The basal inferior and basal inferoseptal segments are hypokinetic. All other scored wall segments showed normal motion. Right Ventricle Normal right ventricular cavity size and systolic function. Atria The left atrium is likely dilated. There is lipomatous hypertrophy of the interatrial septum. There is no evidence of interatrial shunt. The right atrium is normal in size. Aortic Valve The aortic valve was not well visualized. There is mild calcification of the aortic valve. There is mild to moderate aortic valve stenosis. The peak aortic gradient is 20 mmHg.The mean gradient is 11 mmHg. The aortic valve area is 1.42 cm2. There is no aortic valve regurgitation. Mitral Valve Normal mitral valve structure and function. There is trace mitral valve regurgitation. There is no mitral valve stenosis. Pulmonic Valve The pulmonic valve was not well visualized. Tricuspid Valve Likely normal tricuspid valve structure and function. Tricuspid regurgitation envelope is inadequate for calculation of right ventricular systolic pressure. Normal right atrial pressure. Great Vessels All visible segments of the aorta are normal in size. The pulmonary artery was not well visualized. There is no dilatation of the ascending aorta measuring 3.30 cm. Venous The inferior vena cava is normal in size and collapses greater than 50% with inspiration. Pericardium/Pleural There is no evidence of pericardial effusion. Prior Study Comparison No significant change compared to prior study dated: 08/17/2022. Measurements 2D Linear Measurements IVSd: 1.10 0.6-0.9/0.6-1.0 cm LVIDd: 4.54 3.9-5.3/4.2-5.9 cm LVIDd Index: 2.45 2.4-3.2/2.2-3.1 cm/m2 LVIDs: 1.98 2.0-3.6 cm LVPWd: 1.05 0.7-1.1 cm LA Diam: 3.80 2.7-3.8/3.0-4.0 cm LAIDs Index: 2.05 1.5-2.3 cm/m2 LV Mass: 214.08 67-162/88-224 g LV Mass Index: 115.72 43-95/49-115 g/m2 LVOT Diam: 2.00 3.0+(-)1.3 cm 2D Systolic Function EF 4C: 59.90 >55% EF 2C: 60.40 >55% EF BiP: 57.60 >55% Mitral Valve MV Pk E: 0.71 MV PK A: 0.90 MV Decel Time: 112.00 E/A: 0.80 E'Lateral: 5.22 E'Medial: 4.68 E/E' Med: 15.20 E/E' Lat: 13.60 PHT: 33.00 MVA PHT: 6.67 Decel Inyo: 6.34 Aortic Valve AoV Pk Samy: 2.24 AoV Mn Samy: 1.56 AoV VTI: 0.51 AoV Pk Grad: 20.00 Aov Mn Grad: 11.00 DONTE Cont.VTI: 1.42 LVOT LVOT Pk Samy: 1.02 LVOT Mn Samy: 0.66 LVOT VTI: 0.23 LVOT Pk Grad: 4.00 LVOT Mn Grad: 2.00 LVOT Diam: 2.00 LVOT Area: 3.14 Diastolic Function MV Pk E: 0.71 MV Pk A: 0.90 E/A: 0.80 E'Medial: 4.68 E/E' Med: 15.20 E' Laterial: 5.22 E/E' Lat: 13.60 Right Ventricle TAPSE (mm): 19.20 TVS' Asmy: 12.60 Tricuspid Valve RA Press: 3.00 Great Vessels Aorta Sinus of Valsalva: 3.10 2.0-3.5 cm Ao Asc: 3.30 2.1-3.4 cm Updated in Other Vendor System with Status of Final Ranjit Mas MD electronically signed on 06/13/2023 11:53:40 AM with status of Final
== END ==
LOC: HO.CARD 10:36
PROVIDERS: PCP Internal Medicine; Visit Provider Internal Medicine
DX: I35.0 Nonrheumatic aortic (valve) stenosis (principal)
CPT/HCPCS: 93306

== ENCOUNTER → 2023-06-12 10:38 | Outpatient (BNV) | payer MEDICARE, SELFPAY | PROVIDERS: PCP Internal Medicine; Visit Provider Internal Medicine Cardiovascular Disease | DX: I35.0 Nonrheumatic aortic (valve) stenosis (principal) | CPT/HCPCS: 93306 ==

== ENCOUNTER 2023-06-14 08:01 | Outpatient (REF) | payer MEDICARE, SELFPAY ==
[2023-06-14 11:31] LABS: MANUAL DIFF FLAG NO
[2023-06-14 11:39] LABS: Basophils Percent Auto 0.2 % (0-2); Eosinophils Absolute Auto 0.1 X10*3/uL (0.0-0.4); Eosinophils Percent Auto 2.5 % (0-4); Hematocrit 37.5 % (37.0-47.0); Hemoglobin 12.6 g/dl (12.0-16.0); Imm Gran Abs Auto 0.05 X10*3/uL (0.00-0.03); Lymphocytes Absolute Auto 1.9 X10*3/uL (1.2-4.9); Mean Corpuscular HGB Conc 33.6 g/dl (31.0-35.0); Mean Corpuscular Hemoglobin 31.5 pg (27.0-33.0); Mean Corpuscular Volume 93.8 fL (80.0-98.0); Mean Platelet Volume 12.3 fL (9.4-12.3); Monocytes Absolute Auto 0.5 X10*3/uL (0.1-1.2); Monocytes Percent Auto 10.1 % (2-11); Neutrophils Absolute Auto 2.4 x10*3/uL (2.0-8.3); Neutrophils Percent Auto 48.2 % (45-73); Platelet Count 129 X10*3/uL (160-400); Red Cell Distribution Width 13.2 % (11.0-16.0); White Blood Count 4.9 X10*3/uL (4.8-10.8)
[2023-06-14 11:45] LABS: Estimated Average Glucose 140 mg/dL; Hemoglobin A1c % 6.5 % (<6.0)
[2023-06-14 12:27] LABS: Alanine Aminotransferase 16 U/L (0-31); Albumin Level 4.3 g/dL (3.5-5.0); Alkaline Phosphatase 64 U/L (39-117); Anion Gap 12 (12-20); Aspartate Amino Transferase 18 U/L (5-31); Bilirubin Total 0.8 mg/dL (0.0-1.0); Blood Urea Nitrogen 21 mg/dL (9-16); Calcium 9.5 mg/dL (8.4-10.2); Carbon Dioxide 26 mmol/L (22-29); Chloride 105 mmol/L (96-108); Cholesterol 223 mg/dL (<200); Estimated Glomerular Filt Rate 56; Glucose Fasting 146 mg/dL (60-99); HDL Cholesterol 31 mg/dL (>40); LDL Cholesterol Calculated 150 mg/dL (<100); Potassium 3.8 mmol/L (3.3-5.1); Sodium 139 mmol/L (135-145); Total Protein 6.8 g/dL (6.5-8.0); Triglycerides 210 mg/dL (<150)
[2023-06-14 12:45] LABS: TSH reflex Free T4 3.57 uIU/mL (0.32-4.0)
== END 2023-06-14 08:02 | disposition home or self-care (01) ==
LOC: HO.HMGCLDS 08:01
PROVIDERS: PCP Internal Medicine; Visit Provider Internal Medicine
DX: E11.8 Type 2 diabetes mellitus with unspecified complications (principal); E78.5 Hyperlipidemia, unspecified; I10 Essential (primary) hypertension; E66.01 Morbid (severe) obesity due to excess calories
CPT/HCPCS: 36415; 80053; 80061; 83036; 84443; 85025

== ENCOUNTER 2023-06-18 07:00 | Outpatient (REF) | payer MEDICARE, SELFPAY ==
[2023-06-18 14:12] LABS: Microalbumin 24 Hour Urine < 5.0 mg/L
[2023-06-18 14:15] LABS: Total Volume 24 Hour Urine 1750 mL
== END 2023-06-18 07:01 | disposition home or self-care (01) ==
LOC: HO.HMGCLNP 07:00
PROVIDERS: PCP Internal Medicine; Visit Provider Internal Medicine
DX: E11.8 Type 2 diabetes mellitus with unspecified complications (principal); E78.5 Hyperlipidemia, unspecified; I10 Essential (primary) hypertension; E66.01 Morbid (severe) obesity due to excess calories
CPT/HCPCS: 82043

== ENCOUNTER 2023-06-18 08:43 | Outpatient (AMB) | payer MEDICARE, SELFPAY ==
[2023-06-18 09:14] VITALS: BP 134/70; PULSE 82; O2SAT 98; BMI 31.9
--- NOTE | 2023-06-18 09:14 | A.OFFVIS_ITS ---
Intake Vital Signs 06/18/23 09:14 Height 5 ft 5 in Weight 192 lb BMI 31.9 BP 134/70 Blood Pressure Location Rt brachial Position Sitting Pulse 82 Pulse Source Pulse Oximeter Pulse Oximetry (%) 98 Oxygen Delivery Method Room Air Intake Visit Reasons: awv Intake Note: Pt is here today for AWV. Pt states that she needs a [facility] Allergies No Known Allergies [No Known Allergies*] Allergy (Verified 06/18/23 09:18) Medication List - Last Reconciled 06/18/23 by Saige Salamanca MD albuterol sulfate 90 mcg/actuation 2 puffs inhalation QID blood sugar diagnostic (GenUltimate Test Strip) As directed blood sugar diagnostic (OneTouch Ultra Test strips) qd blood-glucose meter (OneTouch Ultra2 Meter) As directed calcium carbonate-vitamin D3 600 mg-5 mcg (200 unit) (Calcium 600 + D(3)) caps PO ciclopirox 0.77% (Ciclodan) 1 appl topical BID 4 weeks clotrimazole-betamethasone 1-0.05 % appl topical BID diabetic supplies, miscellan. extra depth diabetic shoes with 3 pairs custom heat molded innersoles fenofibrate micronized 67 mg PO DAILY gabapentin 300 mg PO BEDTIME [genultimate lancets ] ibuprofen 400 mg PO Q8H metformin 1,000 mg PO DAILY metoprolol succinate ER 100 mg PO DAILY omega-3 fatty acids (Fish Oil Concentrate) 1,000 mg PO DAILY omeprazole 20 mg PO DAILY quinine-vitamin E caps PO rosuvastatin (Crestor) 10 mg PO DAILY tolterodine ER 4 mg PO BID 90 days triamcinolone acetonide 0.025% 1 appl topical DAILY valsartan-hydrochlorothiazide 160-25 mg 1 tab PO DAILY HPI awv HPI Details Patient presents for annual visit. She complains of persistent left lower extremity swelling and discomfort after venous closure in March. Initiated the conversation about Advanced Directives. Advanced Directives help? patients prepare for current and future decisions about their medical treatment? and place of care. Discussed with patient that it is a process where a patients? current condition and prognosis are reviewed, their wishes for information? regarding their illness are elicited, and likely medical dilemmas are presented? and options discussed. The form can be amended as needed, reviewed yearly and? make changes as needed IPPE/AWV ? year old presents? for her ? Annual? Wellness Visit, initial visit.? Medical / Social History Reviewed? Past Medical History ?Yes? . ? [place]? of Care / Care Team list updated ?Yes . ? Surgical/Hospitalization? History ?Yes . ? Current Medications? (including OTC and supplements) ?Yes . ? Family History ?Yes? . ? Tobacco? Control form ?Yes . ? AUDIT-C (Alcohol use) form? ?Yes . ? Illicit drug use in Social? History ?Yes . ? Current diagnosis of? depression? ?No ? Appropriate PHQ2/PHQ9? completed ?Yes . ? Data entered by ?Medical? Assistant To The President and reviewed by provider ? Fall Risk ? Fall? History? Have you had any falls with? injury in the past year? ?No . ? Have you had two or more? falls in the past year? ?No . ? Fall Risk Assessment: ?No? falls in the past year . ? HRA filled out by? the patient, reviewed by Provider and scanned. ? IPPE/AWV ? Balance? [place]? ?Yes . ? Tandem? walk ?Yes . ? Walk and? Turn ?Yes . ? Rise from? sit to stand ?Yes . ?Vision? Corrective? lens ?Yes ? Vision? screen ? Up-to-date, has an appointment [] for vision? screening and glaucoma screening ?Hearing? Whisper? test ?pass .? Initiated the conversation about Advanced Directives. Advanced Directives help? patients prepare for current and future decisions about their medical treatment? and place of care. Discussed with patient that it is a process where a patients? current condition and prognosis are reviewed, their wishes for information? regarding their illness are elicited, and likely medical dilemmas are presented? and options discussed. The form can be amended as needed, reviewed yearly and? make changes as needed Written? Plan?Completed. See Patient? Documents. [facility] Medical History Retention, urine UTI (urinary tract infection) Vitamin D deficiency Hyperlipidemia Normal colonoscopy Bladder hypertonicity Urgency of micturition BEKAH (obstructive sleep apnea) Morbid obesity Essential hypertension Surgical History S/P knee surgery History of shoulder surgery History of total knee replacement History of cholecystectomy History of bilateral cataract extraction History of carpal tunnel release of both wrists History of section Family History Mother Breast cancer Myocardial infarction Father Myocardial infarction Prostate cancer Social History Household Members Other:: , lives alone, 4 sons, Housing: House Patient Tobacco Use Status: Never used Tobacco e-Cigarette/Vaping Use: Never Used Second Hand Smoke Exposure: No service: No Current occupational status: retired Current occupational exposures/hazards: No Cognitive needs: No Hearing needs: No Vision needs: Yes Questionnaire Medicare Wellness Checkup [age] What gender do you identify with?: female During the past 4 weeks, how much have you been bothered by emotional problems such as feeling anxious, depressed, irritable, sad or downhearted, and blue?: not at all During the past 4 weeks, has your physical & emotional health limited your social activities with family, friends, neighbors, or groups?: not at all During the past 4 weeks, how much bodily pain have you generally had?: mild pain During the past 4 weeks, was someone available to help you if you needed & wanted help?: yes, as much as I wanted During the past 4 weeks, what was the hardest physical activity you could do for at least 2 minutes?: moderate Can you get to places out of walking distance without help? (For eg., can you tr johnson alone on buses, taxis or drive your car?): Yes Can you go shopping for groceries or clothes without someone's help?: Yes Can you prepare your own meals?: Yes Can you do your housework without help?: Yes Because of any health problems, do you need the help of another person with your personal care needs such as eating, bathing, dressing or getting around the house?: No Can you handle your own money without help?: Yes During the past 4 weeks, how would you rate your health in general?: good During the past 4 weeks how have things been going for you?: good & bad parts about equal Are you having difficulties driving your car?: no Do you always fasten your seat belt when you are in a car?: yes, usually During past 4 weeks, have you been bothered by the following: never: Falling or dizzy when standing up, Sexual problems?, Trouble eating well?, Teeth or denture problems? and Problems using the telephone? and seldom: Tiredness or fatigue? Have you fallen 2 or more times in the past year?: No Are you afraid of falling?: No Are you a smoker?: no During the past 4 weeks, how many drinks of wine, beer, or other alcoholic beverages did you have?: no alcohol at all Do you exercise for about 20 minutes 3 or more times a week?: no, I usually do not exercise this much Have you been given information to help with the following?: no: Hazards in your house that might hurt you? and no: Keeping track of your medications? How often do you have trouble taking medicines the way you have been told to take them?: I always take medicine as prescribed How confident are you that you can control & manage most of your health problems?: very confident What is your race?: White Mini Mental State Exam (MMSE) Orientation What is the (year) (season) (date) (day) (month)?: year, season, date, day and month Where are we (state) (county) (town or city) (hospital) (floor)?: state, county, town or city, hospital/clinic and floor Registration Name of 3 unrelated objects clearly and slowly, then ask patient to repeat all 3 of them. (1st repeat determines score. Make sure they can repeat all three): object 1, object 2 and object 3 Attention & Calculation (CHOOSE ONE) Spell WORLD backwards (DLROW): 5 letters Recall Ask patient to repeat the 3 items from question #3.: object 1, object 2 and object 3 Language Show patient a wristwatch & ask what it is. Repeat for pencil.: watch and pencil Ask the patient to repeat the phrase 'No ifs, ands, or buts' after you.: correct Ask the patient to 'take a piece of paper with their right hand' 'fold paper in half' 'place paper on floor': take paper in right hand, fold paper in half and place paper on floor Print the sentence 'CLOSE YOUR EYES' on a piece. If patient actually closes eyes then score.: followed written direction Give patient a blank piece of paper & ask to write a sentence. Score if it contains a noun & verb.: sentence contains subject and verb Score Score: 29 Activity of Daily Living Bathing - sponge bath, tub bath or shower: receives no assistance (gets in/out by self, if usual bathing means Dressing - getting clothes from closets & drawers, including inner/outer garments & fasteners.: gets clothes & gets completely dressed without help Toileting - going to the 'toilet room' for urine/bowel elimination & cleaning self/arranging clothes: goes to toilet room, cleans self, arranges clothes without help Transfer: moves in & out of bed and chair without help (may use support object) Continence: controls urination/bowel movements completely by self Feeding: feeds self without help Total Score: 0 Information obtained from: patient Using telephone: independent Traveling: independent Shopping: independent Preparing meals: independent Housework: independent Taking medicine: independent Managing money: independent PHQ-9 Over the last 2 weeks, how often have you been bothered by any of the following problems? 1. Little interest or pleasure in doing things: not at all 2. Feeling down, depressed, or hopeless: not at all 3. Trouble falling or staying asleep, or sleeping too much: not at all 4. Feeling tired or having little energy: not at all 5. Poor appetite or overeating: not at all 6. Feeling bad about yourself - or that you are a failure or have let yourself or your family down: not at all 7. Trouble concentrating on things, such as reading the newspaper or watching television: not at all 8. Moving or speaking so slowly that other people could have noticed. Or the opposite - being so fidgety or restless that you have been moving around a lot more than usual: not at all 9. Thoughts that you would be better off or of hurting yourself in some way: not at all Total score: 0 Depression Screening Interpretation: Negative Depression Screening Done: Yes Source: Developed by Drs. Prudencio Ferreira, Micki Krishnan, Eric Jones and colleagues, with an educational francois from [employer]. Review of Systems Const All systems reviewed & are unremarkable except as noted in HPI and below Reports no additional complaints Eyes Reports no additional complaints ENT Reports no additional complaints Card Reports no additional complaints Resp Reports no additional complaints GI Reports no additional complaints Reports no additional complaints Physical Exam Vital Signs: Last Vital Signs Pulse 82 06/18/23 09:14 BP 134/70 06/18/23 09:14 Pulse Ox 98 06/18/23 09:14 Oxygen Delivery Method Room Air 06/18/23 09:14 BMI result Body Mass Index 31.9 Const General: no acute distress HEENT Head: Yes normal to inspection Ears: hearing grossly normal bilaterally Neck Neck: Yes no lymphadenopathy and Yes supple Resp Effort & Inspection: normal respiratory effort Auscultation: clear to auscultation bilaterally Cardio Rhythm: regular rhythm Heart sounds: S1 normal heart sound present and S2 normal heart sound present GI Inspection: Yes normal to inspection Palpation (GI): Soft to palpation Percussion: Yes normal to percussion Auscultation: normal bowel sounds Extrem Other: Left lower extremity posterior calf area 10 x 10 cm erythema,no warmth or tenderness, no ulcers present General: Yes no clubbing, cyanosis or edema Assessment & Plan Assessment & Plan (1) Varicose veins of left lower extremity with inflammation: Comment: 04/19/2023 - left small saphenous vein radiofrequency ablation Code(s): I83.12 - Varicose veins of left lower extremity with inflammation Plan: Patient requested a referral for 2nd opinion to Dr. Molina (2) Type 2 diabetes mellitus with unspecified complications: Code(s): E11.8 - Type 2 diabetes mellitus with unspecified complications Plan: A1c is 6.5, ADA diet increase physical activity weight loss discussed with the patient, continue metformin (3) Hyperlipidemia: Code(s): E78.5 - Hyperlipidemia, unspecified Plan: Patient was advised to restart rosuvastatin and fenofibrate (4) Essential hypertension: Code(s): I10 - Essential (primary) hypertension Plan: Continue current medications (5) Annual physical exam: Code(s): Z00.00 - Encounter for general adult medical examination without abnormal findings Plan: Well-balanced diet regular physical activity weight loss discussed with the patient Orders: Orders Comprehensive [place]. Panel Fast 4 Months E11.8 - Type 2 diabetes mellitus with unspecified complications, E78.5 - Hyperlipidemia, unspecified, I10 - Essential (primary) hypertension, Z00.00 - Encounter for general adult medical examination without abnormal findings Hemoglobin A1c 4 Months E11.8 - Type 2 diabetes mellitus with unspecified complications, E78.5 - Hyperlipidemia, unspecified, I10 - Essential (primary) hypertension, Z00.00 - Encounter for general adult medical examination without abnormal findings Lipid Panel 4 Months E11.8 - Type 2 diabetes mellitus with unspecified complications, E78.5 - Hyperlipidemia, unspecified, I10 - Essential (primary) hypertension, Z00.00 - Encounter for general adult medical examination without abnormal findings Microalbumin, Random (w Creat) 4 Months E11.8 - Type 2 diabetes mellitus with unspecified complications, E78.5 - Hyperlipidemia, unspecified, I10 - Essential (primary) hypertension, Z00.00 - Encounter for general adult medical examination without abnormal findings Complete Blood Count Auto Diff 4 Months E11.8 - Type 2 diabetes mellitus with unspecified complications, E78.5 - Hyperlipidemia, unspecified, I10 - Essential (primary) hypertension, Z00.00 - Encounter for general adult medical examination without abnormal findings Referrals Vascular Surgery Referral I83.12 - Varicose veins of left lower extremity with inflammation Medications: Refilled rosuvastatin (Crestor) 10 mg PO DAILY 90 tabs 3RF fenofibrate micronized 67 mg PO DAILY 90 caps 3RF ibuprofen 400 mg PO Q8H 90 tabs 0RF omeprazole 20 mg PO DAILY 90 caps 0RF Quality Reporting (2019) Depression/Bipolar (159/160/161/177) PHQ-9: Total score: 0 Coding Level of Care Code Medicare Subsequent (G0439) Diagnoses Varicose veins of left lower extremity with inflammation I83.12 Type 2 diabetes mellitus with unspecified complications E11.8 Hyperlipidemia E78.5 Essential hypertension I10 Annual physical exam Z00.00 CPT Codes Advance Care Planning - Time spent: 1-15 minutes, on File ([id number]) Advance Care Planning Advance Care Planning discussion: Exists, not on file Forms completed: Health Care Proxy Time spent: 1-15 minutes, on File
== END 2023-06-18 09:55 | disposition home or self-care (01) ==
PROVIDERS: PCP Internal Medicine; Visit Provider Internal Medicine
DX: Z00.00 Encounter for general adult medical examination without abnormal findings (principal); E11.69 Type 2 diabetes mellitus with other specified complication; I83.12 Varicose veins of left lower extremity with inflammation; E78.5 Hyperlipidemia, unspecified; I10 Essential (primary) hypertension
CPT/HCPCS: 1123F; G0439

== ENCOUNTER 2023-06-24 08:42 | Outpatient (AMB) | payer MEDICARE, SELFPAY ==
--- NOTE | 2023-06-24 09:00 | A.OFFVIS_ITS ---
Intake Vital Signs 06/24/23 09:03 Height 5 ft 5 in Weight 189 lb 9.561 oz BMI 31.5 BP 160/80 H Blood Pressure Location Lt brachial Position Sitting Pulse 74 Intake Visit Reasons: 1Y follow up Intake Note: 1 year follow up w/ EKG Larry Operator Required: Yes Larry Operator Language: Sierra Leonean Larry Operator Name: Torri [id number] Accompanied by: Self / Same As Patient Allergies No Known Allergies [No Known Allergies*] Allergy (Verified 06/24/23 09:11) Medication List - Last Reconciled 06/24/23 by Hiro Diop MD albuterol sulfate 90 mcg/actuation 2 puffs inhalation QID blood sugar diagnostic (GenUltimate Test Strip) As directed blood sugar diagnostic (OneTouch Ultra Test strips) qd blood-glucose meter (OneTouch Ultra2 Meter) As directed calcium carbonate-vitamin D3 600 mg-5 mcg (200 unit) (Calcium 600 + D(3)) caps PO ciclopirox 0.77% (Ciclodan) 1 appl topical BID 4 weeks clotrimazole-betamethasone 1-0.05 % appl topical BID diabetic supplies, [employer]ell[employer]. extra depth diabetic shoes with 3 pairs custom heat molded innersoles fenofibrate micronized 67 mg PO DAILY gabapentin 300 mg PO BEDTIME [genultimate lancets ] ibuprofen 400 mg PO Q8H metformin 1,000 mg PO DAILY metoprolol succinate ER 100 mg PO DAILY omega-3 fatty acids (Fish Oil Concentrate) 1,000 mg PO DAILY omeprazole 20 mg PO DAILY quinine-vitamin E caps PO rosuvastatin (Crestor) 10 mg PO DAILY tolterodine ER 4 mg PO BID 90 days triamcinolone acetonide 0.025% 1 appl topical DAILY valsartan-hydrochlorothiazide 160-25 mg 1 tab PO DAILY HPI HPI Comments History of Present Illness Details Meghan returns for follow up. Brief history-Previous patient of Dr. Peng, who has retired. Based on consult notes, it seems that she was seen for chest pains; she had undergone ischemic workup with stress testing which had shown anterior/anterolateral reversible defects but thought to be possibly from breast attenuation rather. Since last seen, for the most part, she is just about the same. Still gets off and on chest pains at different times. Sometimes at rest and sometimes with activity. Overweight, hypertensive, diabetic, untreated BEKAH. She continues to have positional pains when she lies in a certain position but not exertional. Chronic shortness of breath with activity but does not change in a long time. She is also overweight. Has hypertension. Untreated sleep apnea. Still does not use CPAP and does not want to do so. [facility] Medical History Retention, urine UTI (urinary tract infection) Vitamin D deficiency Hyperlipidemia Normal colonoscopy Bladder hypertonicity Urgency of micturition BEKAH (obstructive sleep apnea) Morbid obesity Essential hypertension Surgical History S/P knee surgery History of shoulder surgery History of total knee replacement History of cholecystectomy History of bilateral cataract extraction History of carpal tunnel release of both wrists History of section Family History Mother Breast cancer Myocardial infarction Father Myocardial infarction Prostate cancer Social History Household Members Other:: , lives alone, 4 sons, Housing: House Patient Tobacco Use Status: Never used Tobacco e-Cigarette/Vaping Use: Never Used Second Hand Smoke Exposure: No service: No Current occupational status: retired Current occupational exposures/hazards: No Cognitive needs: No Hearing needs: No Vision needs: Yes Review of Systems Const Denies weakness ENT Denies dizziness Card Denies chest pain, Denies chest pain with activity, Denies syncope, Denies rapid heart rate, Denies pedal edema, Denies edema, Denies leg edema, Denies lightheadedness, Denies palpitations, Denies dyspnea, Denies dyspnea on exertion and Denies orthopnea Resp Denies cough, Denies dyspnea and Denies dyspnea on exertion GI Denies hematochezia and Denies change in stool character Musc Denies abnormal gait, Denies muscle cramps, Denies muscle weakness, Denies numbness, Denies radiating pain into limb and Denies tingling Neuro Denies abnormal gait, Denies dizziness, Denies syncope, Denies numbness, Denies tingling and Denies weakness Endo Denies palpitations Physical Exam Vital Signs: Last Vital Signs Pulse 74 06/24/23 09:03 BP 160/80 H 06/24/23 09:03 BMI result Body Mass Index 31.5 Const General: comfortable and no acute distress Orientation/consciousness: patient oriented x3 HEENT Other: Unremarkable Head: Yes normal to inspection Neck Neck: Yes normal visual inspection Chest Chest palpation & inspection: normal inspection of the chest Resp Auscultation: clear to auscultation bilaterally Cardio Palpation: normal PMI Heart sounds: S1 normal heart sound present, S2 normal heart sound present, no gallops, Murmur heart sound present systolic III/ and no rubs GI Palpation (GI): Soft to palpation Back/Spine/Pelvis Other: unremarkable Skin General skin exam: no rashes or lesions noted Neuro General: patient oriented x3 Extrem General: Yes normal to inspection Psych Mental Status: mental status grossly normal Office Procedures EKG Details: EKG with sinus rhythm at 74/Min; no significant ST-T changes and otherwise [place]remark[place] [id number], Complete Assessment & Plan Assessment & Plan (1) Non-rheumatic aortic stenosis: Code(s): I35.0 - Nonrheumatic aortic (valve) stenosis Plan: In the most recent echocardiogram, [id number] aortic stenosis. We can continue to monitor periodically. (2) Essential hypertension: Code(s): I10 - Essential (primary) hypertension Plan: Blood pressure seems high today. She states that on other occasions, it is lower. She remains on beta-blockers and valsartan/HCTZ. (3) Type 2 diabetes mellitus with unspecified complications: Code(s): E11.8 - Type 2 diabetes mellitus with unspecified complications Plan: On metformin. Last hemoglobin A1c is 6.5%. (4) BEKAH (obstructive sleep apnea): Code(s): G47.33 - Obstructive sleep apnea (adult) (pediatric) Plan: Not using CPAP. Has been discussed several times. (5) Morbid obesity: Code(s): E66.01 - Morbid (severe) obesity due to excess calories Plan: Weight loss will help most of her issues but highly doubt it is feasible or not. (6) Precordial chest pain: Code(s): R07.2 - Precordial pain Plan: In the most recent echocardiogram, basal inferior/inferoseptal hypokinesis described but when I reviewed the images, not very convincing. Myocardial perfusion imaging from 05/2020 with small mild reversible defect in the apical anterior wall the could be from soft tissue attenuation, as there is improvement with attenuation corrected images. Normal LVEF with gating. Previous stress tests from [facility] also somewhat similar based on office notes. Considering her many risk factors for obstructive CAD, we will plan on repeating the stress test. Highly unlikely to exercise and hence we can do pharmacological stress with Lexiscan. Orders: Orders CA lexiscan stress w adolfo Today I20.9 - Angina pectoris, unspecified NM cardiolite stress test Today R07.2 - Precordial pain Coding Level of Care Code Est Pt Level 4 (54597) Diagnoses Non-rheumatic aortic stenosis I35.0 Essential hypertension I10 Type 2 diabetes mellitus with unspecified complications E11.8 BEKAH (obstructive sleep apnea) G47.33 Morbid obesity E66.01 Precordial chest pain R07.2 CPT Codes EKG - CPT: [id number], Complete ([id number])
[2023-06-24 09:03] VITALS: BP 160/80; PULSE 74; BMI 31.5
== END 2023-06-24 09:36 | disposition home or self-care (01) ==
PROVIDERS: Visit Provider Internal Medicine
DX: I35.0 Nonrheumatic aortic (valve) stenosis (principal); I10 Essential (primary) hypertension; E11.8 Type 2 diabetes mellitus with unspecified complications; G47.33 Obstructive sleep apnea (adult) (pediatric); E66.01 Morbid (severe) obesity due to excess calories; R07.2 Precordial pain
CPT/HCPCS: 93010; 99214

== ENCOUNTER → 2023-06-24 08:42 | Outpatient (BNVA) | payer MEDICARE, SELFPAY | PROVIDERS: Visit Provider Internal Medicine | DX: I35.0 Nonrheumatic aortic (valve) stenosis (principal); I10 Essential (primary) hypertension; G47.33 Obstructive sleep apnea (adult) (pediatric); E11.8 Type 2 diabetes mellitus with unspecified complications; E66.01 Morbid (severe) obesity due to excess calories; R07.2 Precordial pain; Z68.31 Body mass index [BMI] 31.0-31.9, adult | CPT/HCPCS: 93005; 99212 ==

== ENCOUNTER → 2023-08-06 07:37 | Outpatient (REF) | payer MEDICARE, SELFPAY ==
--- NOTE | ~2023-08-06 | NM_ITS ---
Lexiscan Myocardial perfusion study Indication: Chest pain, assess for coronary disease and ischemia Technique: The patient was brought in for a Lexiscan perfusion study on 08/06/2023 and was injected 0.4 mg of Lexiscan intravenously. Within a minute of this injection 30 mCi of sestamibi was given intravenously. Images were obtained using the SPECT gamma camera interlaced with the gating device. Images were obtained in supine position. Resting perfusion study was performed on 08/07/2023. Patient was administered 30 mCi of sestamibi intravenously at rest. Images were then obtained in supine position. Images were processed with the software and compared side to side in short axis, horizontal long axis and vertical long axis views. Total DLP 137mGy-cm. Findings: Raw acquisition reviewed. The stress perfusion study showed mildly diminished tracer uptake in the apical part of anterior wall. There is improvement with CT attenuation correction suggestive of soft tissue attenuation artifact. The gated study shows normal LV systolic function with calculated LVEF of 59%. LV cavity is normal in size. The gated study shows normal wall thickening and contraction of segments. Resting study shows no significant perfusion abnormality. Gating at rest reveals normal wall motion with ejection fraction at 48%, visually higher. The findings are consistent with mild reversible distal anterior defect suspected to be from soft tissue attenuation artifact. NM/NM cardiolite stress test Impression: 1. Myocardial perfusion imaging study shows probably normal myocardial perfusion. 2. Gated LVEF is 59% during stress; visually normal during rest. 3. Transient ischemic dilatation not present. EKG component of the test reported separately.
--- NOTE | 2023-08-06 07:40 | CA_ITS ---
Acquisition Time: 2023-08-06 07:56:01 Total Exercise Time: 00:02:00 Test Indications: Chest Pain Medications: SEE H Protocol: LEXISCAN Max HR: 103 BPM 72% of Pred: 142 BPM Max BP: 138/080 mmHG Max Work Load: 1.0 METS Pharmacological stress test with Lexiscan injection while sitting and kicking her legs, with mild SOB, no chest discomfort, without arrhythmias, with normotensive response to injection, with nondiagnoisitic EKGs. Aminophylline 75mg IVP given to reverse Lexiscan. Nuclear images pending. Test reviewed with Dr Enciso. Referred By: Hiro Diop Overread By: Sita Whyte
== END ==
LOC: HO.CARD 07:37
PROVIDERS: PCP Internal Medicine; Visit Provider Internal Medicine
DX: R07.2 Precordial pain (principal); I20.9 Angina pectoris, unspecified
CPT/HCPCS: 78452; 93017; A9500; J0280; J2785

== ENCOUNTER → 2023-08-06 07:40 | Outpatient (BNV) | payer MEDICARE, SELFPAY | PROVIDERS: PCP Internal Medicine; Visit Provider Nurse Practitioner | DX: R06.02 Shortness of breath (principal); R07.2 Precordial pain | CPT/HCPCS: 78452; 93016; 93018 ==

== ENCOUNTER 2023-08-15 13:40 | Outpatient (AMB) | payer MEDICARE, SELFPAY ==
[2023-08-15 13:41] VITALS: BP 126/64; PULSE 77; O2SAT 96; BMI 31.4
--- NOTE | 2023-08-15 13:41 | A.OFFPC_ITS ---
Vital Signs 08/15/23 13:41 Height 5 ft 5 in Weight 189 lb BMI 31.4 BP 126/64 Blood Pressure Location Lt brachial Position Sitting Pulse 77 Pulse Source Pulse Oximeter Pulse Oximetry (%) 96 Oxygen Delivery Method Room Air Intake Visit Reasons: Elevated BP Intake Note: Pt is here today for a follow up visit. Allergies No Known Allergies [No Known Allergies*] Allergy (Verified 06/24/23 09:11) Medication List - Last Reconciled 08/15/23 by Saige Salamanca MD albuterol sulfate 90 mcg/actuation 2 puffs inhalation QID blood sugar diagnostic (GenUltimate Test Strip) As directed blood sugar diagnostic (OneTouch Ultra Test strips) qd blood-glucose meter (OneTouch Ultra2 Meter) As directed calcium carbonate-vitamin D3 600 mg-5 mcg (200 unit) (Calcium 600 + D(3)) caps PO ciclopirox 0.77% (Ciclodan) 1 appl topical BID 4 weeks clotrimazole-betamethasone 1-0.05 % appl topical BID diabetic supplies, [employer]. extra depth diabetic shoes with 3 pairs custom heat molded innersoles fenofibrate micronized 67 mg PO DAILY gabapentin 300 mg PO BEDTIME [genultimate lancets ] ibuprofen 400 mg PO Q8H metformin 1,000 mg PO DAILY metoprolol succinate ER 100 mg PO DAILY omega-3 fatty acids (Fish Oil Concentrate) 1,000 mg PO DAILY omeprazole 20 mg PO DAILY quinine-vitamin E caps PO rosuvastatin (Crestor) 10 mg PO DAILY tolterodine ER 4 mg PO BID 90 days triamcinolone acetonide 0.025% 1 appl topical DAILY valsartan-hydrochlorothiazide 160-25 mg 1 tab PO DAILY Tobacco use date assessed: 08/15/23 Fall risk assessment: No Falls in past year Last assessed Fall Risk: 08/15/23 Dental Screening Dental Screen Date: 08/15/23 Did you have a dental visit in the last 12 months?: Yes Did you have a dental problem in the last 6 months where you did not have access to dental care?: No Was dental information given to patient?: Patient has dentist HPI Elevated BP HPI Details Pt presents for F/U HTN, DM 2, hyperlipid, stable on medications. Patient had her blood pressure checked in [facility] and had a high reading. She has been compliant taking her medications regularly. [facility] Medical History Retention, urine UTI (urinary tract infection) Vitamin D deficiency Hyperlipidemia Normal colonoscopy Bladder hypertonicity Urgency of micturition BEKAH (obstructive sleep apnea) Morbid obesity Essential hypertension Surgical History S/P knee surgery History of shoulder surgery History of total knee replacement History of cholecystectomy History of bilateral cataract extraction History of carpal tunnel release of both wrists History of section Family History Mother Breast cancer Myocardial infarction Father Myocardial infarction Prostate cancer Social History Household Members Other:: , lives alone, 4 sons, Housing: House Patient Tobacco Use Status: Never used Tobacco e-Cigarette/Vaping Use: Never Used Second Hand Smoke Exposure: No service: No Current occupational status: retired Current occupational exposures/hazards: No Cognitive needs: No Hearing needs: No Vision needs: Yes Questionnaire Thrive Questionnaire Date Thrive assessed: 08/13/22 JEYSON-7 AMB Questionnaire JEYSON-7 Date JEYSON - 7 assessed: 08/13/22 Source: Developed by Drs. Prudencio Ferreira, Micki Krishnan, Eric Jones and colleagues, with an educational francois from [employer]. Review of Systems Const All systems reviewed & are unremarkable except as noted in HPI and below Reports no additional complaints Eyes Reports no additional complaints ENT Reports no additional complaints Card Reports no additional complaints Resp Reports no additional complaints GI Reports no additional complaints Reports no additional complaints Physical exam (Primary Care) Vital Signs: Last Vital Signs Pulse 77 08/15/23 13:41 BP 126/64 08/15/23 13:41 Pulse Ox 96 08/15/23 13:41 Oxygen Delivery Method Room Air 08/15/23 13:41 BMI result Body Mass Index 31.4 Tobacco/Smoking Status: Tobacco use Status Tobacco use date assessed 02/11/23 08/15/23 13:42 Patient Tobacco Use Status Never used Tobacco 08/15/23 13:42 e-Cigarette/Vaping Use Never Used 08/15/23 13:42 Thrive Assessment: Date of Thrive Assessment Date Thrive assessed 08/13/22 08/15/23 13:42 Const General: no acute distress HENMT Head: Yes normal to inspection Neck Neck: Yes supple Resp Effort & Inspection: normal respiratory effort Auscultation: clear to auscultation bilaterally Cardio Rhythm: regular rhythm Heart sounds: S1 normal heart sound present and S2 normal heart sound present Extrem General: Yes no clubbing, cyanosis or edema Assessment and Plan Assessment & Plan (1) Type 2 diabetes mellitus with unspecified complications: Code(s): E11.8 - Type 2 diabetes mellitus with unspecified complications Plan: ADA diet increase physical activity discussed with the patient, continue metformin, return in October with a fasting labs before (2) Morbid obesity: Code(s): E66.01 - Morbid (severe) obesity due to excess calories Plan: Weight loss discussed with the patient (3) Essential hypertension: Code(s): I10 - Essential (primary) hypertension Plan: Continue current medications low-sodium diet increase physical activity weight loss discussed with the patient Coding Level of Care Code Est Pt Level 3 (48762) Diagnoses Type 2 diabetes mellitus with unspecified complications E11.8 Morbid obesity E66.01 Essential hypertension I10
== END 2023-08-15 14:16 | disposition home or self-care (01) ==
PROVIDERS: PCP Internal Medicine; Visit Provider Internal Medicine
DX: E11.8 Type 2 diabetes mellitus with unspecified complications (principal); E66.01 Morbid (severe) obesity due to excess calories; Z68.30 Body mass index [BMI] 30.0-30.9, adult; I10 Essential (primary) hypertension
CPT/HCPCS: 99213

== ENCOUNTER 2023-08-27 13:07 | Outpatient (AMB) | payer MEDICARE, SELFPAY ==
[2023-08-27 13:22] VITALS: BP 137/63; PULSE 80; BMI 31.5
--- NOTE | 2023-08-27 13:22 | A.OFFVIS_ITS ---
Intake Vital Signs 08/27/23 13:22 Height 5 ft 5 in Weight 189 lb 9.561 oz BMI 31.5 BP 137/63 Blood Pressure Location Lt brachial Position Sitting Pulse 80 Pulse Source Pulse Oximeter Intake Visit Reasons: follow up testing [employer] Required: Yes [employer] Name: HEMANTH [id number] Allergies No Known Allergies [No Known Allergies*] Allergy (Verified 06/24/23 09:11) HPI HPI Comments History of Present Illness Details 79-year-old female presents today for a follow-up after testing. Certified [place] [employer] used. Patient reports she is still getting left sided pain when she is laying on that side. She had a history of sleep apnea without CPAP use, hypertension, obesity, diabetes, and hyperlipidemia. ON LICENSE OF [facility] Medical History Retention, urine UTI (urinary tract infection) Vitamin D deficiency Hyperlipidemia Normal colonoscopy Bladder hypertonicity Urgency of micturition BEKAH (obstructive sleep apnea) Morbid obesity Essential hypertension Surgical History S/P knee surgery History of shoulder surgery History of total knee replacement History of cholecystectomy History of bilateral cataract extraction History of carpal tunnel release of both wrists History of section Family History Mother Breast cancer Myocardial infarction Father Myocardial infarction Prostate cancer Social History Household Members Other:: , lives alone, 4 sons, Housing: House Patient Tobacco Use Status: Never used Tobacco e-Cigarette/Vaping Use: Never Used Second Hand Smoke Exposure: No service: No Current occupational status: retired Current occupational exposures/hazards: No Cognitive needs: No Hearing needs: No Vision needs: Yes Review of Systems Const Denies weakness ENT Denies dizziness Card Denies chest pain, Denies chest pain with activity, Denies syncope, Denies rapid heart rate, Denies pedal edema, Denies edema, Denies leg edema, Denies lightheadedness, Denies palpitations, Denies dyspnea, Denies dyspnea on exertion and Denies orthopnea Resp Denies cough, Denies dyspnea and Denies dyspnea on exertion GI Denies hematochezia and Denies change in stool character Musc Denies abnormal gait, Denies muscle cramps, Denies muscle weakness, Denies numbness, Denies radiating pain into limb and Denies tingling Neuro Denies abnormal gait, Denies dizziness, Denies syncope, Denies numbness, Denies tingling and Denies weakness Endo Denies palpitations Physical Exam Vital Signs: Last Vital Signs Pulse 80 08/27/23 13:22 BP 137/63 08/27/23 13:22 BMI result Body Mass Index 31.5 Const General: healthy appearing and no acute distress Orientation/consciousness: patient oriented x3 HEENT Head: Yes normal to inspection Eyes General: appearance normal, both eyes and all related structures Neck Neck: Yes normal visual inspection Chest Chest palpation & inspection: normal inspection of the chest Resp Effort & Inspection: normal respiratory effort Auscultation: clear to auscultation bilaterally Cardio Jugular venous distension: no JVD Palpation: normal PMI Rate: regular rate Rhythm: regular rhythm Heart sounds: S1 normal heart sound present, S2 normal heart sound present, no click, no gallops, no murmurs and no rubs GI Inspection: Yes normal to inspection Palpation (GI): Soft to palpation Skin General skin exam: no rashes or lesions noted Neuro General: patient oriented x3 Extrem General: Yes normal to inspection Psych Appearance: grossly normal Results Reviewed Results Reviewed: NM/NM cardiolite stress test Impression: 1. Myocardial perfusion imaging study shows probably normal myocardial perfusion. 2. Gated LVEF is 59% during stress; visually normal during rest. 3. Transient ischemic dilatation not present. Assessment & Plan Assessment & Plan (1) Precordial chest pain: Code(s): R07.2 - Precordial pain (2) BEKAH (obstructive sleep apnea): Code(s): G47.33 - Obstructive sleep apnea (adult) (pediatric) Plan Positional chest discomfort when laying on left side. Nuclear imaging showed probably normal myocardial perfusion. Findings consistent with mild reversible distal anterior defect suspected to be from soft tissue attenuation artifact. No transient ischemic dilatation present. Patient encouraged to use CPAP machine. She reports they are too noisy. Informed that it will improve her sleep, assist with oxygenation to vital organs and they have improved greatly in the past years as her last time using one was 20+ years ago and she should speak to her provider about a new machine. She declined despite education. Coding Level of Care Code Est Pt Level 3 (06649) Diagnoses Precordial chest pain R07.2 BEKAH (obstructive sleep apnea) G47.33
== END 2023-08-27 14:05 | disposition home or self-care (01) ==
PROVIDERS: PCP Internal Medicine; Visit Provider Nurse Practitioner
DX: R07.2 Precordial pain (principal); G47.33 Obstructive sleep apnea (adult) (pediatric)
CPT/HCPCS: 99213

== ENCOUNTER → 2023-08-27 13:07 | Outpatient (BNVA) | payer MEDICARE, SELFPAY | PROVIDERS: PCP Internal Medicine; Visit Provider Nurse Practitioner | DX: G47.33 Obstructive sleep apnea (adult) (pediatric) (principal); R07.2 Precordial pain | CPT/HCPCS: 99212 ==

== ENCOUNTER 2023-09-13 09:48 | Outpatient (AMB) | payer MEDICARE, SELFPAY ==
--- NOTE | 2023-09-13 10:27 | A.OFFVIS_ITS ---
Intake Visit Reasons: 1y follow up Intake Note: Patient presents today for her yearly?follow up OAB medications: tolteridone Blood thinners: none pvr: 0 ml Manager Event Required: No Accompanied by: Self / Same As Patient Allergies No Known Allergies [No Known Allergies*] Allergy (Verified 09/13/23 10:27) Do you need a note to return to daycare/school/sports/work: No HPI Comments Details: 09/13/23--Nimo is a 78-year-old female followed for OAB. The patient had her last visit on 09/13/22 for follow-up for OAB symptoms. At that time the patient was doing well on tolterodine 4 mg b.i.d. she reports no new complaints. Denies dysuria. We will continue tolterodine anticholinergic therapy. Review of chart: 09/13/2022-- 6 month follow-up. She is a 77-year-old diabetic female. She is a nonsmoker. She is currently taking tolterodine 4 mg b.i.d. She is having no issues with this other than complaints of dry mouth. She is having no urinary incontinence episodes and remains dry during the night. She reports having a good appetite and no issues with constipation. She reports that she drinks adequate amounts of water on a daily basis. Urinalysis in the office today--UA-shows no sign of infection, bladder scan PVR is 0. PFSH Medical History Retention, urine UTI (urinary tract infection) Vitamin D deficiency Hyperlipidemia Normal colonoscopy Bladder hypertonicity Urgency of micturition BEKAH (obstructive sleep apnea) Morbid obesity Essential hypertension Surgical History S/P knee surgery History of shoulder surgery History of total knee replacement History of cholecystectomy History of bilateral cataract extraction History of carpal tunnel release of both wrists History of section Family History Mother Breast cancer Myocardial infarction Father Myocardial infarction Prostate cancer Social History Household Members Other:: , lives alone, 4 sons, Housing: House Patient Tobacco Use Status: Never used Tobacco e-Cigarette/Vaping Use: Never Used Second Hand Smoke Exposure: No service: No Current occupational status: retired Current occupational exposures/hazards: No Cognitive needs: No Hearing needs: No Vision needs: Yes Review of Systems Const All systems reviewed & are unremarkable except as noted in HPI and below Reports no additional complaints Eyes Reports no additional complaints ENT Reports no additional complaints Card Reports no additional complaints Resp Reports no additional complaints GI Reports no additional complaints Reports as per HPI Musc Reports no additional complaints Skin/Breast Reports system reviewed and no additional complaints, except as documented Neuro Reports no additional complaints Psych Reports no additional complaints Endo Reports no additional complaints Jonathan/Lymph Reports no additional complaints Aller/Immun Reports no additional complaints Results AMB Urinalysis, Automated UA Leukoctes 0 Elsie/uL Last Edit by ALEX Higuera on 09/13/23 10:33 UA Nitrite Negative Last Edit by ALEX Higuera on 09/13/23 10:33 UA Urobilinogen 0.2 mg/dL Last Edit by ALEX Higuera on 09/13/23 10:3 3 UA Protein 0 mg/dL Last Edit by ALEX Hiugera on 09/13/23 10:33 UA pH 7.0 Last Edit by ALEX Higuera on 09/13/23 10:33 UA Blood 0 Naun/uL Last Edit by ALEX Higuera on 09/13/23 10:33 UA Specific [place] 1.010 Last Edit by ALEX Higuera on 09/13/23 10: 33 UA Ketone Negative Last Edit by ALEX Higuera on 09/13/23 10:33 UA Bilirubin 0 mg/dL Last Edit by ALEX Higuera on 09/13/23 10:33 UA Glucose 0 mg/dL Last Edit by ALEX Higuera on 09/13/23 10:33 Results Reviewed Results Reviewed: Laboratory Last Values Urine pH (Auto) 7.0 09/13/23 10:32 Specific [place] (Auto) 1.010 09/13/23 10:32 Urine Protein (Auto) 0 mg/dL 09/13/23 10:32 Glucose (UA)(Auto) 0 mg/dL 09/13/23 10:32 Urine Ketones (Auto) Negative 09/13/23 10:32 Urine Blood (Auto) 0 Naun/uL 09/13/23 10:32 Urine Nitrite (Auto) Negative 09/13/23 10:32 Urine Bilirubin (Auto) 0 mg/dL 09/13/23 10:32 Urine Urobilinogen (Auto) 0.2 mg/dL 09/13/23 10:32 Leukocyte Esterase (Auto) 0 Elsie/uL 09/13/23 10:32 Assessment & Plan Assessment & Plan (1) OAB (overactive bladder): Code(s): N32.81 - Overactive bladder Category: Medical (2) Urgency of micturition: Code(s): R39.15 - Urgency of urination Category: Medical Plan Tolterodine 4 mg b.i.d. follow-up in 1 year Orders: Orders AMB Urinalysis Automated 09/13/23 Z13.9 - Encounter for screening, unspecified Medications: Refilled tolterodine ER 4 mg PO BID 180 caps 3RF 90 days Patient Instructions: The patient had an opportunity to ask questions regarding treatment plan. The patient expressed understanding and agreement with the above treatment plan. The patient is aware they should contact our office by phone for worsening of their current condition or the appearance of new symptoms. Compliance is encouraged with any medications and followup testing that is ordered. It is a privilege to be allowed the opportunity to participate in the urologic care of your patient. If you have any questions or concerns regarding treatment for the above conditions please do not hesitate to contact me. The office telephone contact is [phone]. This note is constructed in part using voice recognition software. While every effort has been made to ensure accuracy senior it engineer errors may have been included. Yours sincerely, Yamileth Valladares MD Coding Level of Care Code Est Pt Level 3 (14353) Diagnoses OAB (overactive bladder) N32.81 Urgency of micturition R39.15
== END 2023-09-13 10:51 | disposition home or self-care (01) ==
PROVIDERS: Visit Provider Urology
DX: N32.81 Overactive bladder (principal); R39.15 Urgency of urination
CPT/HCPCS: 99213

== ENCOUNTER → 2023-09-13 09:48 | Outpatient (BNVA) | payer MEDICARE, SELFPAY | PROVIDERS: Visit Provider Urology | DX: N32.81 Overactive bladder (principal); R39.15 Urgency of urination | CPT/HCPCS: 81003; 99212 ==

== ENCOUNTER 2023-10-17 09:13 | Outpatient (REF) | payer MEDICARE, SELFPAY ==
[2023-10-17 10:13] LABS: MANUAL DIFF FLAG NO
[2023-10-17 10:24] LABS: Basophils Percent Auto 0.4 % (0-2); Eosinophils Absolute Auto 0.1 X10*3/uL (0.0-0.4); Eosinophils Percent Auto 1.8 % (0-4); Hematocrit 36.3 % (37.0-47.0); Hemoglobin 12.1 g/dl (12.0-16.0); Imm Gran Abs Auto 0.06 X10*3/uL (0.00-0.03); Imm Gran Pct Auto 1.1 % (0.0-0.4); Lymphocytes Absolute Auto 1.8 X10*3/uL (1.2-4.9); Lymphocytes Percent Auto 33.6 % (20-40); Mean Corpuscular HGB Conc 33.3 g/dl (31.0-35.0); Mean Corpuscular Hemoglobin 31.2 pg (27.0-33.0); Mean Corpuscular Volume 93.6 fL (80.0-98.0); Mean Platelet Volume 11.9 fL (9.4-12.3); Monocytes Absolute Auto 0.5 X10*3/uL (0.1-1.2); Monocytes Percent Auto 9.2 % (2-11); Neutrophils Absolute Auto 2.9 x10*3/uL (2.0-8.3); Neutrophils Percent Auto 53.9 % (45-73); Platelet Count 137 X10*3/uL (160-400); Red Blood Count 3.88 X10*6/uL (4.20-5.50); Red Cell Distribution Width 13.2 % (11.0-16.0); White Blood Count 5.5 X10*3/uL (4.8-10.8)
[2023-10-17 11:03] LABS: Estimated Average Glucose 131 mg/dL; Hemoglobin A1c % 6.2 % (<6.0)
[2023-10-17 11:05] LABS: Alanine Aminotransferase 14 U/L (0-31); Albumin Level 4.4 g/dL (3.5-5.0); Alkaline Phosphatase 57 U/L (39-117); Anion Gap 11 (12-20); Aspartate Amino Transferase 18 U/L (5-31); Bilirubin Total 0.6 mg/dL (0.0-1.0); Blood Urea Nitrogen 18 mg/dL (9-16); Calcium 9.7 mg/dL (8.4-10.2); Carbon Dioxide 28 mmol/L (22-29); Chloride 105 mmol/L (96-108); Cholesterol 117 mg/dL (<200); Estimated Glomerular Filt Rate 52; Glucose Fasting 114 mg/dL (60-99); HDL Cholesterol 35 mg/dL (>40); LDL Cholesterol Calculated 55 mg/dL (<100); Potassium 4.2 mmol/L (3.3-5.1); Sodium 140 mmol/L (135-145); Total Protein 6.8 g/dL (6.5-8.0); Triglycerides 135 mg/dL (<150)
== END 2023-10-17 09:14 | disposition home or self-care (01) ==
LOC: HO.HMGCLDS 09:13
PROVIDERS: PCP Internal Medicine; Visit Provider Internal Medicine
DX: Z00.00 Encounter for general adult medical examination without abnormal findings (principal); E11.8 Type 2 diabetes mellitus with unspecified complications; E78.5 Hyperlipidemia, unspecified; I10 Essential (primary) hypertension
CPT/HCPCS: 36415; 80053; 80061; 82043; 82570; 83036; 85025

== ENCOUNTER 2023-10-21 12:16 | Outpatient (AMB) | payer MEDICARE, SELFPAY ==
[2023-10-21 12:26] VITALS: BP 126/78; PULSE 94; O2SAT 97; BMI 30.6
--- NOTE | 2023-10-21 12:26 | MHC.PC.OV ---
Vital Signs 10/21/23 12:26 Height 5 ft 5 in Weight 184 lb BMI 30.6 BP 126/78 Blood Pressure Location Rt brachial Position Sitting Pulse 94 Pulse Source Pulse Oximeter Pulse Oximetry (%) 97 Oxygen Delivery Method Room Air Intake Visit Reasons: 4 month follow up Intake Note: Pt is here today for 4 months follow up on DM and labs. Pt states that she has been having lower back pain that goes down her legs. Allergies No Known Allergies [No Known Allergies*] Allergy (Verified 10/21/23 12:35) Medication List - Last Reconciled 10/21/23 by Saige Salamanca MD albuterol sulfate 90 mcg/actuation 2 puffs inhalation QID blood sugar diagnostic (GenUltimate Test Strip) As directed blood sugar diagnostic (OneTouch Ultra Test strips) qd blood-glucose meter (OneTouch Ultra2 Meter) As directed ciclopirox 0.77% (Ciclodan) 1 appl topical BID 4 weeks clotrimazole-betamethasone 1-0.05 % appl topical BID diabetic supplies, miscellan. extra depth diabetic shoes with 3 pairs custom heat molded innersoles fenofibrate micronized 67 mg PO DAILY gabapentin 300 mg PO BEDTIME [genultimate lancets ] ibuprofen 400 mg PO Q8H metformin 1,000 mg PO DAILY metoprolol succinate ER 100 mg PO DAILY omega-3 fatty acids (Fish Oil Concentrate) 1,000 mg PO DAILY omeprazole 20 mg PO DAILY quinine-vitamin E caps PO rosuvastatin (Crestor) 10 mg PO DAILY tolterodine ER 4 mg PO BID 90 days triamcinolone acetonide 0.025% 1 appl topical DAILY valsartan-hydrochlorothiazide 160-25 mg 1 tab PO DAILY Tobacco use date assessed: 10/21/23 Dental Screening Dental Screen Date: 08/15/23 HPI 4 month follow up HPI Details PATIENT PRESENTS FOR THE FOLLOW-UP OF HYPERTENSION HYPERLIPIDEMIA TYPE 2 DIABETES. SHE COMPLAINS OF CHRONIC BILATERAL HIP AND LOWER BACK PAIN WORSE WHEN WALKING BUT ALSO AT REST. [facility] Medical History Retention, urine UTI (urinary tract infection) Vitamin D deficiency Hyperlipidemia Normal colonoscopy Bladder hypertonicity Urgency of micturition BEKAH (obstructive sleep apnea) Morbid obesity Essential hypertension Surgical History S/P knee surgery History of shoulder surgery History of total knee replacement History of cholecystectomy History of bilateral cataract extraction History of carpal tunnel release of both wrists History of section Family History Mother Breast cancer Myocardial infarction Father Myocardial infarction Prostate cancer Social History Household Members Other:: , lives alone, 4 sons, Housing: House Patient Tobacco Use Status: Never used Tobacco e-Cigarette/Vaping Use: Never Used Second Hand Smoke Exposure: No service: No Current occupational status: retired Current occupational exposures/hazards: No Cognitive needs: No Hearing needs: No Vision needs: Yes Questionnaire Thrive Questionnaire Date Thrive assessed: 08/13/22 JEYSON-7 AMB Questionnaire JEYSON-7 Date JEYSON - 7 assessed: 08/13/22 Source: Developed by Drs. Prudencio Ferreira, Micki Krishnan, Eric Jones and colleagues, with an educational francois from [employer]. Review of Systems Const All systems reviewed & are unremarkable except as noted in HPI and below Card Reports no additional complaints Resp Reports no additional complaints GI Reports no additional complaints Physical exam (Primary Care) Vital Signs: Last Vital Signs Pulse 94 10/21/23 12:26 BP 126/78 10/21/23 12:26 Pulse Ox 97 10/21/23 12:26 Oxygen Delivery Method Room Air 10/21/23 12:26 BMI result Body Mass Index 30.6 Tobacco/Smoking Status: Tobacco use Status Tobacco use date assessed 10/21/23 10/21/23 12:36 Patient Tobacco Use Status Never used Tobacco 10/21/23 12:36 e-Cigarette/Vaping Use Never Used 10/21/23 12:26 Thrive Assessment: Date of Thrive Assessment Date Thrive assessed 08/13/22 10/21/23 12:26 Const General: no acute distress HENMT Head: Yes normal to inspection Eyes General: appearance normal, both eyes and all related structures Neck Neck: Yes supple Resp Effort & Inspection: normal respiratory effort Auscultation: clear to auscultation bilaterally Cardio Rhythm: regular rhythm Heart sounds: S1 normal heart sound present and S2 normal heart sound present GI Inspection: Yes normal to inspection Palpation (GI): Soft to palpation Percussion: Yes normal to percussion Back/Spine/Pelvis Other: Lower lumbar paraspinal tenderness, straight leg rising 90 degrees bilaterally decreased range of motion of both hips Assessment and Plan Assessment & Plan (1) Hip pain, bilateral: Code(s): M25.551 - Pain in right hip; M25.552 - Pain in left hip Plan: Obtain hip and lumbar spine x-rays and PT was recommended but patient declined (2) Lower back pain: Code(s): M54.50 - Low back pain, unspecified Plan: Check lumbar spine x-ray PT was recommended but patient declined (3) Type 2 diabetes mellitus with unspecified complications: Code(s): E11.8 - Type 2 diabetes mellitus with unspecified complications Plan: A1c is 6.2, ADA diet regular physical activity weight loss discussed with the patient she will continue metformin (4) Hyperlipidemia: Code(s): E78.5 - Hyperlipidemia, unspecified Plan: Continue crestor (5) Essential hypertension: Code(s): I10 - Essential (primary) hypertension Plan: Continue current medications (6) Morbid obesity: Code(s): E66.01 - Morbid (severe) obesity due to excess calories Plan: Increase physical activity decrease caloric intake and weight loss discussed with the patient Orders: Orders XR hip BI w PEL1V Today M25.551 - Pain in right hip, M25.552 - Pain in left hip Comprehensive [place]. Panel Fast 4 Months E11.8 - Type 2 diabetes mellitus with unspecified complications, E66.01 - Morbid (severe) obesity due to excess calories, E78.5 - Hyperlipidemia, unspecified, I10 - Essential (primary) hypertension Lipid Panel 4 Months E11.8 - Type 2 diabetes mellitus with unspecified complications, E66.01 - Morbid (severe) obesity due to excess calories, E78.5 - Hyperlipidemia, unspecified, I10 - Essential (primary) hypertension XR lumbar spine 2-3V Today M54.50 - Low back pain, unspecified Hemoglobin A1c 4 Months E11.8 - Type 2 diabetes mellitus with unspecified complications, E66.01 - Morbid (severe) obesity due to excess calories, E78.5 - Hyperlipidemia, unspecified, I10 - Essential (primary) hypertension Complete Blood Count Auto Diff 4 Months E11.8 - Type 2 diabetes mellitus with unspecified complications, E66.01 - Morbid (severe) obesity due to excess calories, E78.5 - Hyperlipidemia, unspecified, I10 - Essential (primary) hypertension Microalbumin, Random (w Creat) 4 Months E11.8 - Type 2 diabetes mellitus with unspecified complications, E66.01 - Morbid (severe) obesity due to excess calories, E78.5 - Hyperlipidemia, unspecified, I10 - Essential (primary) hypertension Medications: Refilled metformin 1,000 mg PO DAILY 90 tabs 3RF omeprazole 20 mg PO DAILY 90 caps 3RF valsartan-hydrochlorothiazide 160-25 mg 1 tab PO DAILY 90 tabs 3RF metoprolol succinate ER 100 mg PO DAILY 90 tabs 3RF Discontinued ibuprofen Discontinued Reason: Doctor's Order 400 mg PO Q8H 90 tabs 0RF Coding Level of Care Code Est Pt Level 4 (09252) Diagnoses Hip pain, bilateral M25.551; M25.552 Lower back pain M54.50 Type 2 diabetes mellitus with unspecified complications E11.8 Hyperlipidemia E78.5 Essential hypertension I10 Morbid obesity E66.01
== END 2023-10-21 13:18 | disposition home or self-care (01) ==
PROVIDERS: PCP Internal Medicine; Visit Provider Internal Medicine
DX: E11.8 Type 2 diabetes mellitus with unspecified complications (principal); E66.01 Morbid (severe) obesity due to excess calories; Z68.30 Body mass index [BMI] 30.0-30.9, adult; M25.551 Pain in right hip; M25.552 Pain in left hip; M54.50 Low back pain, unspecified; E78.5 Hyperlipidemia, unspecified; I10 Essential (primary) hypertension
CPT/HCPCS: 99214

== ENCOUNTER 2023-10-22 08:46 | Outpatient (REF) | payer MEDICARE, SELFPAY ==
--- NOTE | ~2023-10-22 | XR_ITS ---
EXAMINATION: XR BILATERAL HIPS XR LUMBAR SPINE CLINICAL INFORMATION: Pain in right hip. COMPARISON: None available. TECHNIQUE: 3 views of the lumbar spine. AP view of the pelvis as well as 2 views of each hip. FINDINGS: AP PELVIS AND BILATERAL HIPS: Bones are diffusely demineralized. Bilateral hip joint alignment is maintained. Mild degenerative changes in the bilateral hips. Moderate degenerative changes in the sacroiliac joints, right greater than left. LUMBAR SPINE: Surgical clips right upper quadrant. Dextroscoliosis in the lumbar spine. Facet arthritis in the yir-zt-cjlga lumbar spine. Atherosclerotic aortic calcifications. Advanced multilevel lumbar spondylosis with loss of disc space height most notable at L4-L5. Degenerative changes in the imaged lower thoracic spine. XR/XR hip BI w PEL1V IMPRESSION: 1. Mild degenerative changes in the bilateral hips. 2. Advanced multilevel lumbar spondylosis most notable at L4-L5. 3. Facet arthritis in the qvr-bb-bzpyj lumbar spine.
--- NOTE | ~2023-10-22 | XR_ITS ---
EXAMINATION: XR BILATERAL HIPS XR LUMBAR SPINE CLINICAL INFORMATION: Pain in right hip. COMPARISON: None available. TECHNIQUE: 3 views of the lumbar spine. AP view of the pelvis as well as 2 views of each hip. FINDINGS: AP PELVIS AND BILATERAL HIPS: Bones are diffusely demineralized. Bilateral hip joint alignment is maintained. Mild degenerative changes in the bilateral hips. Moderate degenerative changes in the sacroiliac joints, right greater than left. LUMBAR SPINE: Surgical clips right upper quadrant. Dextroscoliosis in the lumbar spine. Facet arthritis in the vem-ga-iddbg lumbar spine. Atherosclerotic aortic calcifications. Advanced multilevel lumbar spondylosis with loss of disc space height most notable at L4-L5. Degenerative changes in the imaged lower thoracic spine. XR/XR lumbar spine 2-3V IMPRESSION: 1. Mild degenerative changes in the bilateral hips. 2. Advanced multilevel lumbar spondylosis most notable at L4-L5. 3. Facet arthritis in the has-me-lkkrn lumbar spine.
== END 2023-10-22 08:47 | disposition home or self-care (01) ==
LOC: HO.HMGCX 08:46
PROVIDERS: PCP Internal Medicine; Visit Provider Internal Medicine
DX: M54.50 Low back pain, unspecified (principal); M25.551 Pain in right hip; M25.552 Pain in left hip
CPT/HCPCS: 72100; 73521

== ENCOUNTER 2024-01-01 08:48 | Outpatient (AMB) | payer MEDICARE, SELFPAY ==
--- NOTE | 2024-01-01 09:10 | A.OFFVIS_ITS ---
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 Patient reports for hip pain has been present for about 6 months and will fluctuate in intensity. States pain is located at the lateral aspect of hip that radiates into her lower back. States seen by her PCP and was told having arthritis in hips and would like to discuss cortisone injections. No previous tx. HX of b/l knee TKA. Finds little relief Tylenol and motrin Pin Sticker Required: Yes Pin Sticker Name: Sury ID#[id number] Allergies No Known Allergies [No Known Allergies*] Allergy (Verified 10/21/23 12:35) Medication List - Last Reconciled 01/01/24 by Marilyn Panda PA-C albuterol sulfate 90 mcg/actuation 2 puffs inhalation QID blood sugar diagnostic (GenUltimate Test Strip) As directed blood sugar diagnostic (OneTouch Ultra Test strips) qd blood-glucose meter (OneTouch Ultra2 Meter) As directed ciclopirox 0.77% (Ciclodan) 1 appl topical BID 4 weeks clotrimazole-betamethasone 1-0.05 % appl topical BID diabetic supplies, miscellan. 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 She reports that she has been experiencing hip pain for approximately 6 months and fluctuate in intensity. She claims that pain is located at the lateral aspect of the hip that radiates into her lower back. She saw her PCP and who informed that she has hip arthritis and would like to discuss cortisone injections. She jamshid es any previous treatment. She has a history of bilateral knee TKA. She finds mild relief Tylenol and Motrin. She states that when attempting to turn from side to side while sleeping, makes the pain worse. She is trouble getting in and out of the car. She has a history of diabetes mellitus and currently she reports her sugar levels were normal. [facility] Medical History Retention, urine UTI (urinary tract infection) Vitamin D deficiency Hyperlipidemia Normal colonoscopy Bladder hypertonicity Urgency of micturition BEKAH (obstructive sleep apnea) Morbid obesity Essential hypertension Surgical History S/P knee surgery History of shoulder surgery History of total knee replacement History of cholecystectomy History of bilateral cataract extraction History of carpal tunnel release of both wrists History of section Family History Mother Breast cancer Myocardial infarction Father Myocardial infarction Prostate cancer Social History Household Members Other:: , lives alone, 4 sons, Housing: House Patient Tobacco Use Status: Never used Tobacco e-Cigarette/Vaping Use: Never Used Second Hand Smoke Exposure: No service: No Current occupational status: retired Current occupational exposures/hazards: No Cognitive needs: No Hearing needs: No Vision needs: Yes Review of Systems Const All systems reviewed & are unremarkable except as noted in HPI and below Physical Exam Vital Signs: BMI result Body Mass Index 30.6 Const General: cooperative, healthy appearing, comfortable and no acute distress Orientation/consciousness: patient oriented x3 Neck Neck: Yes normal visual inspection and Yes no JVD Chest Chest palpation & inspection: normal inspection of the chest Resp Effort & Inspection: normal respiratory effort Auscultation: clear to auscultation bilaterally, crackles (no), rales (no), rhonchi (no) and wheezes (no) Cardio Jugular venous distension: no JVD Rate: regular rate Rhythm: regular rhythm Heart sounds: S1 normal heart sound present, S2 normal heart sound present, Murmur heart sound present (no) and Rub heart sound present (no) Neuro General: patient oriented x3 Extrem Other: Bilateral hip: Normal to inspection, ambulates with a slight limp. Has mild discomfort with internal and extension rotation of hip. No significant stiffness. Mild discomfort with hip flexion against resistance. NVI. General: Yes normal to inspection, Yes no pedal edema and Yes no calf tenderness Results Reviewed Results Reviewed: XR hip BI w PEL1V 10/22/23 IMPRESSION: 1. Mild degenerative changes in the bilateral hips. 2. Advanced multilevel lumbar spondylosis most notable at L4-L5. 3. Facet arthritis in the ywt-yv-afizh lumbar spine. Assessment & Plan Assessment & Plan (1) Bilateral primary osteoarthritis of hip: Code(s): M16.0 - Bilateral primary osteoarthritis of hip Category: Medical Plan We discussed options which include steroid injection and this would be an intraarticular injection in both hips that will be done at the hospital. I explained that the hospital will contact her to to book this appointment. I did explain that she needs to watch her sugar levels as she is a diabetic and steroid can affect this. She does understand and she is in agreement and I explained that if her symptoms do not improve over the next 6 to 8 weeks, she should return to our office to meet with Dr. Castillo to discuss the next step in her treatment. However, she is hesitant to proceed with any type of surgical intervention, given a history of blood clots with her previous total knee replacements. Orders: Orders FL arthrogram hip LT Today M16.12 - Unilateral primary osteoarthritis, left hip FL arthrogram hip RT Today M16.11 - Unilateral primary osteoarthritis, right hip Patient Instructions: Scribed for Marilyn Panda PA-C, by Lilly Ware family practice medical doctor, on 01/01/2024 at 9:00 AM Marilyn VELOZ PA-C, have personally reviewed and agree with the information entered by the scribe. Coding Level of Care Code Est Pt Level 3 (12170) Diagnoses Bilateral primary osteoarthritis of hip M16.0
[2024-01-01 09:19] VITALS: BMI 30.6
== END 2024-01-01 10:52 | disposition home or self-care (01) ==
PROVIDERS: PCP Internal Medicine; Visit Provider Physician Assistant
DX: M16.0 Bilateral primary osteoarthritis of hip (principal)
CPT/HCPCS: 99213

== ENCOUNTER → 2024-01-01 08:48 | Outpatient (BNVA) | payer MEDICARE, SELFPAY | PROVIDERS: PCP Internal Medicine; Visit Provider Physician Assistant | DX: M16.0 Bilateral primary osteoarthritis of hip (principal) | CPT/HCPCS: 99212 ==

== ENCOUNTER 2024-01-27 12:30 | Outpatient (REF) | payer MEDICARE, SELFPAY ==
--- NOTE | ~2024-01-27 | FL_ITS ---
LEFT HIP INTRA-ARTICULAR STEROID INJECTION INDICATIONS: Left hip pain. Orthopedic surgery requests intra-articular steroid injection. PROCEDURE: Risks and benefits and possible complications were discussed with the patient and the consent form was signed. The patient was placed hip on the fluoroscopy table. The left hip was prepped and draped in normal sterile fashion. 1% buffered lidocaine was used for anesthesia. A 22-gauge spinal needle was used to access the hip joint. Intra-articular position of the needle within the hip joint was verified using 3 cc of Omnipaque 300. A total of 5 mL of 1% lidocaine and 40 mg Depo-Medrol was then injected into the left hip joint. The needle was then removed and a Band-Aid was applied to the injection site. The patient tolerated the procedure well. There were no immediate complications. FL/FL arthrogram hip LT IMPRESSION: Successful fluoroscopic left hip intra-articular steroid injection. The procedure was performed by Reyes Haines PA-C, and directly supervised by Pato. Electronically signed by: Pavel Whyte MD 01/28/2024 08:33 AM EDT
== END 2024-01-27 12:31 | disposition home or self-care (01) ==
LOC: HO.XRAY 12:30
PROVIDERS: PCP Internal Medicine; Visit Provider Physician Assistant
DX: M16.12 Unilateral primary osteoarthritis, left hip (principal)
CPT/HCPCS: 27093; 73525

== ENCOUNTER → 2024-01-27 12:36 | Outpatient (BNV) | payer MEDICARE, SELFPAY | PROVIDERS: PCP Internal Medicine; Visit Provider Radiology Diagnostic Radiology | DX: M16.12 Unilateral primary osteoarthritis, left hip (principal) | CPT/HCPCS: 20610; 77002 ==

== ENCOUNTER 2024-01-30 12:56 | Outpatient (REF) | payer MEDICARE, SELFPAY ==
--- NOTE | ~2024-01-30 | FL_ITS ---
FLUOROSCOPIC RIGHT HIP INTRA-ARTICULAR STEROID INJECTION INDICATIONS: Right hip pain. Intra-articular steroid injection is for symptomatic control. Procedure: Risks and benefits and possible complications were discussed with the patient and the consent form was signed. The patient was placed hip on the fluoroscopy table. The right hip was prepped and draped in normal sterile fashion. 1% buffered lidocaine was used for anesthesia. A 22-gauge spinal needle was used to access the hip joint. Intra-articular position of the needle within the hip joint was verified using 3 cc of Omnipaque 300. A total of 5 mL of 1% lidocaine and 40 mg Depo-Medrol was then injected into the hip joint. The needle was then removed and a Band-Aid was applied to the injection site. The patient tolerated the procedure well. There were no immediate complications. FL/FL arthrogram hip RT Impression: Successful fluoroscopic right hip intra-articular steroid injection. The procedure was performed by Reyes Haines PA-C, and directly supervised by Dr. Whyte. Electronically signed by: Pavel Whyte MD 01/30/2024 03:45 PM EDT
== END 2024-01-30 12:57 | disposition home or self-care (01) ==
LOC: HO.XRAY 12:56
PROVIDERS: PCP Internal Medicine; Visit Provider Physician Assistant
DX: M16.11 Unilateral primary osteoarthritis, right hip (principal); M16.12 Unilateral primary osteoarthritis, left hip
CPT/HCPCS: 27093; 73525

== ENCOUNTER → 2024-01-30 12:58 | Outpatient (BNV) | payer MEDICARE, SELFPAY | PROVIDERS: PCP Internal Medicine; Visit Provider Radiology Diagnostic Radiology | DX: M25.551 Pain in right hip (principal) | CPT/HCPCS: 27095; 73525 ==

== ENCOUNTER 2024-02-01 12:22 | Outpatient (AMB) | payer MEDICARE, SELFPAY ==
--- NOTE | 2024-02-01 12:35 | MHC.OFFWIV ---
Intake Vital Signs 02/01/24 12:36 Height 5 ft Weight 182 lb BMI 35.5 BP 140/60 H Blood Pressure Location Lt brachial Position Sitting Pulse 64 Pulse Source Pulse Oximeter Temp 98.7 F Temp Source Oral Pulse Oximetry (%) 96 Oxygen Delivery Method Room Air Intake Visit Reasons: EP bruising on lower LT leg Intake Note: Patient is here with bruising and swelling after shot on Saturday, now feels a little hot, hurts to walk. Patient Tobacco Use Status: Never used Tobacco Allergies No Known Allergies [No Known Allergies*] Allergy (Verified 02/01/24 12:40) Medication List - Last Reconciled 02/01/24 by Kleber Bautista MD albuterol sulfate 90 mcg/actuation 2 puffs inhalation QID blood sugar diagnostic (GenUltimate Test Strip) As directed blood sugar diagnostic (OneTouch Ultra Test strips) qd blood-glucose meter (OneTouch Ultra2 Meter) As directed ciclopirox 0.77% (Ciclodan) 1 appl topical BID 4 weeks diabetic supplies, miscellan. extra depth diabetic shoes with 3 pairs custom heat molded innersoles fenofibrate micronized 67 mg PO DAILY gabapentin 300 mg PO BEDTIME [genultimate lancets ] metformin 1,000 mg PO DAILY metoprolol succinate ER 100 mg PO DAILY omeprazole 20 mg PO DAILY rosuvastatin (Crestor) 10 mg PO DAILY tolterodine ER 4 mg PO BID 90 days triamcinolone acetonide 0.025% 1 appl topical DAILY valsartan-hydrochlorothiazide 160-25 mg 1 tab PO DAILY Do you need a note to return to daycare/school/sports/work: No HPI EP bruising on lower LT leg HPI Details Pain at medial aspect of left lower leg just above her ankle for the past several days. Skin has become more firm and red. She has not tried anything for this. Denies fevers or chills [facility] Medical History (Updated 02/01/24 @ 12:56 by Kleber Bautista MD) Non-rheumatic aortic stenosis Heart murmur Venous insufficiency DVT (deep venous thrombosis) GERD (gastroesophageal reflux disease) Vitamin D deficiency Hyperlipidemia Bladder hypertonicity BEKAH (obstructive sleep apnea) Morbid obesity Essential hypertension Surgical History (Updated 01/31/24 @ 14:04 by Sue Gallegos RN) H/O colonoscopy History of shoulder surgery History of total knee replacement History of cholecystectomy History of bilateral cataract extraction History of carpal tunnel release of both wrists History of section Family History Mother Breast cancer Myocardial infarction Father Myocardial infarction Prostate cancer Social History Household Members Other:: , lives alone, 4 sons, Housing: House Patient Tobacco Use Status: Never used Tobacco e-Cigarette/Vaping Use: Never Used Second Hand Smoke Exposure: No service: No Current occupational status: retired Current occupational exposures/hazards: No Cognitive needs: No Hearing needs: No Vision needs: Yes Review of Systems Const Details: See HPI Physical Exam Vital Signs: Last Vital Signs Temp 98.7 F 02/01/24 12:36 Pulse 64 02/01/24 12:36 BP 140/60 H 02/01/24 12:36 Pulse Ox 96 02/01/24 12:36 Oxygen Delivery Method Room Air 02/01/24 12:36 BMI result Body Mass Index 35.5 Const General: no acute distress and well developed Nutritional Appearance: well nourished Orientation/consciousness: patient oriented x3 HEENT Head: Yes normocephalic and Yes atraumatic Eyes General: appearance normal, both eyes and all related structures Pupils: Equal, round and reactive pupils present EOM: EOMs intact bilaterally Resp Effort & Inspection: normal respiratory effort Auscultation: clear to auscultation bilaterally Cardio Rate: regular rate Rhythm: regular rhythm Heart sounds: S1 normal heart sound present, S2 normal heart sound present, no gallops, no murmurs and no rubs Skin Other: 10 cm region of redness with increased warmth and tenderness to palpation. Superior aspect of this has a scratch/scab No weeping or discharge. No fluctuance. Neuro Other: Mildly unsteady gait-walks with cane General: patient oriented x3 and gait normal Cranial nerves: Yes Equal, round and reactive pupils present Psych Affect: normal affect Assessment & Plan Assessment & Plan (1) Cellulitis: Code(s): L03.90 - Cellulitis, unspecified Plan: Mild cellulitis of left lower extremity Start cephalexin. Elevate leg Cool compresses Call or return to office if not improving. Follow-up with PCP. Patient has an appointment with her PCP in March what will call for a sooner appointment if needed. Medications: New cephalexin 500 mg PO Q12H 10 days 20 caps 0RF Coding Level of Care Code Est Pt Level 3 (38861) Diagnoses Cellulitis L03.90
[2024-02-01 12:36] VITALS: BP 140/60; PULSE 64; TEMP 37.1; O2SAT 96; BMI 35.5
== END 2024-02-01 13:00 | disposition home or self-care (01) ==
PROVIDERS: PCP Internal Medicine; Visit Provider Family Medicine
DX: L03.90 Cellulitis, unspecified (principal)
CPT/HCPCS: 99051; 99213

== ENCOUNTER 2024-02-05 07:34 | Day surgery (SDC) | payer MEDICARE, SELFPAY ==
[2024-01-31 13:57] VITALS: BMI 33.7
--- NOTE | 2024-02-04 09:19 | P.CONAN_ITS ---
Documented by User: Eri Contreras NP 02/04/24 09:23 HPI - Anesthesia Eval Consult details Narrative: 78yo F for Colonoscopy Follows [facility] cardiology for Mild-mod , BEKAH. Stable at 08/2023 post testing follow up office visit [facility] Active Problems Active Problems: All Active Problems Cellulitis (Acute) Bilateral primary osteoarthritis of hip (Acute) Lower back pain (Acute) Hip pain, bilateral (Acute) Annual physical exam (Acute) Varicose veins of left lower extremity with inflammation (Acute) Venous insufficiency of both lower extremities (Acute) Left leg swelling (Acute) Cellulitis of leg, left (Acute) Peripheral neuropathy (Acute) Heart murmur (Acute) Neck pain (Acute) History of total bilateral knee replacement (Acute) OAB (overactive bladder) (Acute) Knee pain, bilateral (Acute) Retention, urine (Acute) Type 2 diabetes mellitus with unspecified complications (Acute) UTI (urinary tract infection) (Acute) Normal colonoscopy (Acute) S/P knee surgery (Acute) Urgency of micturition (Acute) Non-rheumatic aortic stenosis (Acute) Vitamin D deficiency (Acute) Hyperlipidemia (Acute) Bladder hypertonicity (Acute) BEKAH (obstructive sleep apnea) (Acute) Morbid obesity (Acute) Essential hypertension (Acute) Past Medical History Medical History Non-rheumatic aortic stenosis Heart murmur Venous insufficiency DVT (deep venous thrombosis) GERD (gastroesophageal reflux disease) Vitamin D deficiency Hyperlipidemia Bladder hypertonicity BEKAH (obstructive sleep apnea) Morbid obesity Essential hypertension Family History Family History Mother Breast cancer Myocardial infarction Father Myocardial infarction Prostate cancer Surgical History Surgical History H/O colonoscopy History of shoulder surgery History of total knee replacement History of cholecystectomy History of bilateral cataract extraction History of carpal tunnel release of both wrists History of section Social History Social History Household Members Other:: , lives alone, 4 sons, Housing: House Are you a primary managed care analyst to a significant other at home: No Do you presently have visiting nurse or other home services: No Patient Tobacco Use Status: Never used Tobacco e-Cigarette/Vaping Use: Never Used Second Hand Smoke Exposure: No Use of substances other than those prescribed or required for medical reasons: No Have you been hit, kicked, punched, or otherwise hurt by someone within the past year? If so, by whom?: No Are you DNR?: No Advance Directives: No Advance Directives Information Provided: Yes Recently lost weight without trying: No Eating poorly because of decreased appetite: No Nutrition Risks: No Nutritional Risk Patient : No service: No Current occupational status: retired Current occupational exposures/hazards: No Cognitive needs: No Hearing needs: No Vision needs: Yes Meds Allergies Allergy/AdvReac Type Severity Reaction Status Date / Time No Known Allergies Allergy Verified 02/01/24 12:40 [No Known Allergies*] Home Medications ?Medication ?Instructions ?Recorded ?Confirmed ?Last Taken ?Type genultimate lancets 04/20/21 02/01/24 Unknown History fenofibrate micronized 67 mg 67 mg PO DAILY 08/27/23 02/01/24 Unknown History capsule Exam Height,Weight and Vital Signs: Height 5 ft 2 in Weight 83.461 kg Pertinent Lab Results Pertinent Lab Results: Laboratory Tests 10/17/23 09:25 WBC 5.5 Hgb 12.1 Hct 36.3 L Plt Count 137 L Sodium 140 Potassium 4.2 Chloride 105 Carbon Dioxide 28 BUN 18 H Creatinine 1.02 Narrative Narrative: ECHO 06/2023 Conclusions: - 1. Normal LV ejection fraction 55-60% with impaired relaxation filling pattern 2. Nbww-of-lqcwwlzs aortic stenosis 3. No gross pericardial effusion EKG 06/2023 sinus rhythm at 74/Min; no significant ST-T changes and otherwise unremarkable. Normal VT and corrected QT. NM cardiolite stress test 08/2023 Impression: 1. Myocardial perfusion imaging study shows probably normal myocardial perfusion. 2. Gated LVEF is 59% during stress; visually normal during rest. 3. Transient ischemic dilatation not present. EKG component of the test reported separately. Assessment and Plan Assessment Anesthesia Assessment: Chart Reviewed Documented by User: Parul Valdes MD 02/05/24 10:10 [facility] Past Medical History Medical History Non-rheumatic aortic stenosis Heart murmur Venous insufficiency DVT (deep venous thrombosis) GERD (gastroesophageal reflux disease) Vitamin D deficiency Hyperlipidemia Bladder hypertonicity BEKAH (obstructive sleep apnea) Morbid obesity Essential hypertension Family History Family History Mother Breast cancer Myocardial infarction Father Myocardial infarction Prostate cancer Family history of problems with anesthesia: No Surgical History Surgical History H/O colonoscopy History of shoulder surgery History of total knee replacement History of cholecystectomy History of bilateral cataract extraction History of carpal tunnel release of both wrists History of section History of Problems with Anesthesia: No Social History Social History Household Members Other:: , lives alone, 4 sons, Housing: House Are you a primary managed care analyst to a significant other at home: No Do you presently have visiting nurse or other home services: No Patient Tobacco Use Status: Never used Tobacco e-Cigarette/Vaping Use: Never Used Second Hand Smoke Exposure: No Use of substances other than those prescribed or required for medical reasons: No Have you been hit, kicked, punched, or otherwise hurt by someone within the past year? If so, by whom?: No Are you DNR?: No Advance Directives: No Advance Directives Information Provided: Yes Recently lost weight without trying: No Eating poorly because of decreased appetite: No Nutrition Risks: No Nutritional Risk Patient : No service: No Current occupational status: retired Current occupational exposures/hazards: No Cognitive needs: No Hearing needs: No Vision needs: Yes Meds Allergies Allergy/AdvReac Type Severity Reaction Status Date / Time No Known Allergies Allergy Verified 02/01/24 12:40 [No Known Allergies*] Home Medications ?Medication ?Instructions ?Recorded ?Confirmed ?Last Taken ?Type genultimate lancets 04/20/21 02/01/24 Unknown History fenofibrate micronized 67 mg 67 mg PO DAILY 08/27/23 02/01/24 Unknown History capsule Exam Airway Mallampati Class: III TM Dist: <=3cm Neck ROM: Limited Heart: rrr Lungs: cta Assessment and Plan Assessment Anesthesia Assessment: Anesthesia Plan Discussed Final Anesthetic Review Family History of Problems with Anesthesia: No History of Problems with Anesthesia: No NPO: Yes ASA Class: III Final Preanesthetic Review: No Changes in Pt Med Stat, Meds/Allgs Chart Reviewed, Consent Obtained/Reviewed and Anes Risks/Benef Reviewed Patient Risk: Intermediate Procedure Risk: Low Anesthetic Plan Disposition: Standard PACU
[2024-02-05 08:03] VITALS: BMI 29.2
[2024-02-05 09:04] VITALS: BP 173/78; PULSE 81; RESP 18; TEMP 35.8; O2SAT 99
[2024-02-05] MEDS: Lactated Ringers 1,000 ML 100 ML IVCONT (09:17)
[2024-02-05 09:25] LABS: Glucose, Whole Blood 124 mg/dL (60-115)
[2024-02-05 11:09] VITALS: BP 119/59; PULSE 70; RESP 18; TEMP 37.4; O2SAT 98
--- NOTE | 2024-02-05 11:14 | P.BOP_ITS ---
Brief Operative Note Date of Service: 02/05/24 Pre-op diagnosis: Screening Post-op diagnosis: other (Polyp) Procedure: Colonoscopy to the cecum and TI with hot snare polypectomy Surgeon: Prudencio Terry MD Anesthesia: MAC Was an Angular Js Developer used for this Procedure?: No Estimated blood loss (mL): 0 Pathology: other (A. Cecal polyp) Condition: stable Disposition: PACU
[2024-02-05 11:24] VITALS: BP 136/64; PULSE 67; RESP 17; TEMP 36.7; O2SAT 98
--- NOTE | 2024-02-05 11:39 | OP_ITS ---
DATE OF SERVICE: 02/05/2024 SURGEON: Prudencio Terry MD INDICATIONS: The patient presents for evaluation of colorectal cancer screening. Full consent has been obtained from her for this, including risks of bleeding and perforation. PREOPERATIVE DIAGNOSIS: Colorectal cancer screening. POSTOPERATIVE DIAGNOSIS: PROCEDURE PERFORMED: Colonoscopy to the cecum and terminal ileum with hot snare polypectomy. ESTIMATED BLOOD LOSS: COMPLICATIONS: ANESTHESIA: Monitored anesthesia care. ASSISTANTS: SPECIMENS: POSTOPERATIVE DIAGNOSES: Colorectal cancer screening, colon polyp, diverticulosis, and internal hemorrhoids. DESCRIPTION OF PROCEDURE: The patient was placed in the left decubitus position. The digital rectal exam revealed no abnormalities. The Olympus video pediatric colonoscope was then entered into the rectum and advanced easily to the cecum. Once in the cecum, I did identify cecal pouch with appendiceal orifice and a normal-appearing ileocecal valve. The terminal ileum was cannulated and appeared normal. The scope was withdrawn back in the colon. The entire cecum appeared normal other than an approximately 8 mm grossly adenomatous polyp just above the appendiceal orifice. This was removed by hot snare polypectomy and recovered by suction. The polypectomy site appeared clean, without any sign of residual polyp nor bleeding. Remainder of the cecum appeared normal. The scope was slowly withdrawn assessing all mucosal surfaces carefully. Preparation was excellent. I did not visualize any other polyps, colitis, nor angiodysplasias. There was a moderate amount of sigmoid diverticulosis. In the rectum, scope was retroflexed, visualizing internal hemorrhoids, but no other pathology. The rectal mucosa appeared normal. Scope was straightened and withdrawn from the patient. She tolerated the procedure well and was returned to the recovery area in stable condition. IMPRESSION: 1. Colon polyp. 2. Diverticulosis. 3. Internal hemorrhoids. PLAN: The results of the pathology will be checked. Given her age and these relatively minimal findings, I do not think she will need any further screening colonoscopy. She was advised not to use any aspirin or NSAIDs for 1 week. She will see me on a p.r.n. basis. MD PEDRO LUIS Meyer/DANITA / [phone]
== END 2024-02-05 11:57 | disposition home or self-care (01) ==
PROVIDERS: PCP Internal Medicine; Visit Provider Internal Medicine
PROC: 0DJD8ZZ Inspection of Lower Intestinal Tract, Via Natural or Artificial Opening Endoscopic (ICD-10-PCS; CPT 45378; principal; 2024-02-05 08:40)
DX: Z12.11 Encounter for screening for malignant neoplasm of colon (principal); Z86.010 Personal history of colon polyps; D12.0 Benign neoplasm of cecum; K57.30 Diverticulosis of large intestine without perforation or abscess without bleeding; K64.8 Other hemorrhoids; K21.9 Gastro-esophageal reflux disease without esophagitis; I10 Essential (primary) hypertension; E78.5 Hyperlipidemia, unspecified; G47.33 Obstructive sleep apnea (adult) (pediatric); E11.9 Type 2 diabetes mellitus without complications; Z79.84 Long term (current) use of oral hypoglycemic drugs; Z79.899 Other long term (current) drug therapy; Z86.718 Personal history of other venous thrombosis and embolism; Z98.890 Other specified postprocedural states
CPT/HCPCS: 45385; 82947; 88305; J2704

== ENCOUNTER 2024-02-20 08:51 | Outpatient (AMB) | payer MEDICARE, SELFPAY ==
--- NOTE | 2024-02-20 09:02 | A.OFFVIS_ITS ---
Vital Signs 02/20/24 09:03 Height 5 ft 2 in Weight 159 lb BMI 29.1 Intake Visit Reasons: OV -B/L Hip Inj f/u Intake Note: Meghan is a 79 year old [place]se speaking female who presents today for a follow up of her bilateral hip OA. She was last seen with Marilyn who ordered bilateral intra-articular injections - Left Hip injected on 01/27/24 and Right hip injected on 01/30/24. Patient reports that these injection were only helpful for about 2 days. She would like to discuss alternative treatment options. The left hip is more painful than the right. Data Center Project Manager Required: Yes Data Center Project Manager Language: [place] Data Center Project Manager Name: Sury Carreon [id number] Allergies No Known Allergies [No Known Allergies*] Allergy (Verified 02/20/24 09:22) HPI HPI OV -B/L Hip Inj f/u: Details: Meghan is a 79 year old female who presents today for a follow up of her bilateral hip OA. She was last seen with Marilyn who ordered bilateral intra- articular injections - Left Hip injected on 01/27/24 and Right hip injected on 01/30/24. Patient reports that these injection were only minimally helpful for about 2 days. She would like to discuss alternative treatment options. The left hip is more painful than the right. Her pain localizes to her lumbosacral spine and travels down the posterior aspects of both her legs right greater than left. [facility] Medical History Non-rheumatic aortic stenosis Heart murmur Venous insufficiency DVT (deep venous thrombosis) GERD (gastroesophageal reflux disease) Vitamin D deficiency Hyperlipidemia Bladder hypertonicity BEKAH (obstructive sleep apnea) Morbid obesity Essential hypertension Surgical History H/O colonoscopy History of shoulder surgery History of total knee replacement History of cholecystectomy History of bilateral cataract extraction History of carpal tunnel release of both wrists History of section Family History Mother Breast cancer Myocardial infarction Father Myocardial infarction Prostate cancer Social History Household Members Other:: , lives alone, 4 sons, Housing: House Are you a primary career and technology education teacher to a significant other at home: No Do you presently have visiting nurse or other home services: No Patient Tobacco Use Status: Never used Tobacco e-Cigarette/Vaping Use: Never Used Second Hand Smoke Exposure: No service: No Current occupational status: retired Current occupational exposures/hazards: No Cognitive needs: No Hearing needs: No Vision needs: Yes Physical Exam Vital Signs: BMI result Body Mass Index 29.1 Extrem Other: Negative impingement testing. Mild discomfort and tightness on internal rotation while flexed on the right. Antalgic gait not consistent with hip OA however. Results Reviewed Results Reviewed: I personally reviewed relevant radiographs. Moderate Right and mild left hip arthritis. Severe lumbosacral arthritis with loss of disc height and curvature. Assessment & Plan Assessment & Plan (1) Bilateral primary osteoarthritis of hip: Code(s): M16.0 - Bilateral primary osteoarthritis of hip Category: Medical Plan: While this pleasant 79-year-old woman does have some radiographic evidence of arthritis her symptoms are coming from her back and her core dysfunction rather than her hip arthritis. I discussed this with her. (2) Degenerative disc disease, lumbar: Code(s): M51.36 - Other intervertebral disc degeneration, lumbar region Category: Medical Plan: I have made a referral to pain management for her further workup for her lumbar DJD. Orders: Referrals Pain Management Referral M51.36 - Other intervertebral disc degeneration, lumbar region Coding Level of Care Code Est Pt Level 3 (90827) Complex EM visit Add On G2211 Diagnoses Bilateral primary osteoarthritis of hip M16.0 Degenerative disc disease, lumbar M51.36
[2024-02-20 09:03] VITALS: BMI 29.1
== END 2024-02-20 09:37 | disposition home or self-care (01) ==
PROVIDERS: PCP Internal Medicine; Visit Provider Orthopaedic Surgery
DX: M16.0 Bilateral primary osteoarthritis of hip (principal); M51.36 Other intervertebral disc degeneration, lumbar region
CPT/HCPCS: 99213; G2211

== ENCOUNTER → 2024-02-20 08:51 | Outpatient (BNVA) | payer MEDICARE, SELFPAY | PROVIDERS: PCP Internal Medicine; Visit Provider Orthopaedic Surgery | DX: M16.0 Bilateral primary osteoarthritis of hip (principal); M51.36 Other intervertebral disc degeneration, lumbar region | CPT/HCPCS: 99212 ==

== ENCOUNTER 2024-02-28 09:50 | Outpatient (REF) | payer MEDICARE, SELFPAY ==
[2024-02-28 13:20] LABS: MANUAL DIFF FLAG NO
[2024-02-28 13:48] LABS: Basophils Percent Auto 0.4 % (0-2); Eosinophils Absolute Auto 0.1 X10*3/uL (0.0-0.4); Eosinophils Percent Auto 1.4 % (0-4); Hematocrit 37.1 % (37.0-47.0); Hemoglobin 12.4 g/dl (12.0-16.0); Imm Gran Abs Auto 0.03 X10*3/uL (0.00-0.03); Imm Gran Pct Auto 0.6 % (0.0-0.4); Lymphocytes Absolute Auto 1.5 X10*3/uL (1.2-4.9); Lymphocytes Percent Auto 30.2 % (20-40); Mean Corpuscular HGB Conc 33.4 g/dl (31.0-35.0); Mean Corpuscular Hemoglobin 31.6 pg (27.0-33.0); Mean Corpuscular Volume 94.4 fL (80.0-98.0); Mean Platelet Volume 11.5 fL (9.4-12.3); Monocytes Absolute Auto 0.5 X10*3/uL (0.1-1.2); Monocytes Percent Auto 10.3 % (2-11); Neutrophils Absolute Auto 2.8 x10*3/uL (2.0-8.3); Neutrophils Percent Auto 57.1 % (45-73); Platelet Count 167 X10*3/uL (160-400); Red Blood Count 3.93 X10*6/uL (4.20-5.50); Red Cell Distribution Width 13.5 % (11.0-16.0)
[2024-02-28 13:55] LABS: Alanine Aminotransferase 19 U/L (0-31); Albumin Level 4.4 g/dL (3.5-5.0); Alkaline Phosphatase 60 U/L (39-117); Anion Gap 12 (12-20); Aspartate Amino Transferase 22 U/L (5-31); Bilirubin Total 0.7 mg/dL (0.0-1.0); Blood Urea Nitrogen 13 mg/dL (9-16); Calcium 10.1 mg/dL (8.4-10.2); Carbon Dioxide 27 mmol/L (22-29); Chloride 103 mmol/L (96-108); Cholesterol 124 mg/dL (<200); Estimated Glomerular Filt Rate 52; Glucose Fasting 129 mg/dL (60-99); HDL Cholesterol 41 mg/dL (>40); LDL Cholesterol Calculated 56 mg/dL (<100); Potassium 4.8 mmol/L (3.3-5.1); Sodium 137 mmol/L (135-145); Total Protein 6.9 g/dL (6.5-8.0); Triglycerides 135 mg/dL (<150)
[2024-02-28 14:15] LABS: Estimated Average Glucose 137 mg/dL; Hemoglobin A1c % 6.4 % (<6.0)
[2024-02-28 14:21] LABS: Creatinine Urine 46.02 mg/dL; Microalbumin Urine < 5.0 mg/L
== END 2024-02-28 09:51 | disposition home or self-care (01) ==
LOC: HO.HMGCLDS 09:50
PROVIDERS: PCP Internal Medicine; Visit Provider Internal Medicine
DX: E11.8 Type 2 diabetes mellitus with unspecified complications (principal); E78.5 Hyperlipidemia, unspecified; E66.01 Morbid (severe) obesity due to excess calories; I10 Essential (primary) hypertension
CPT/HCPCS: 36415; 80053; 80061; 82043; 82570; 83036; 85025

== ENCOUNTER 2024-03-30 08:22 | Outpatient (REF) | payer MEDICARE, SELFPAY ==
--- NOTE | ~2024-03-30 | MM_ITS ---
EXAMINATION: MM SCREENING DIGITAL BREAST TOMOSYNTHESIS, BILATERAL CLINICAL INFORMATION: Screening. Asymptomatic. COMPARISON: Mammography: Comparison is made with available priors TECHNIQUE: Digital breast mammography with tomosynthesis is performed in both the craniocaudal and mediolateral oblique views along with computer-aided detection (CAD). FINDINGS: There are scattered areas of fibroglandular density (ACR BI-RADS breast composition Category b). There are no significant masses, abnormal calcifications, or other abnormalities. MM/MM tomosynthesis screening BI IMPRESSION: No mammographic evidence of malignancy. ASSESSMENT: BI-RADS BI-RADS 1 - Negative RECOMMENDATION: Routine annual mammography screening. 1 year F/U This examination should not preclude the clinical evaluation of a suspicious palpable abnormality. This patient's information was entered into a reminder system with a target due date for their next mammogram. Electronically signed by: Eri Kamara DO 04/07/2024 11:23 AM [facility]
== END 2024-03-30 08:23 | disposition home or self-care (01) ==
LOC: HO.MAMMO 08:22
PROVIDERS: PCP Internal Medicine; Visit Provider Internal Medicine
DX: Z12.31 Encounter for screening mammogram for malignant neoplasm of breast (principal)
CPT/HCPCS: 77063; 77067

== ENCOUNTER → 2024-03-30 08:45 | Outpatient (BNV) | payer MEDICARE, SELFPAY | PROVIDERS: PCP Internal Medicine; Visit Provider Internal Medicine | DX: Z12.31 Encounter for screening mammogram for malignant neoplasm of breast (principal) | CPT/HCPCS: 77063; 77067 ==

== ENCOUNTER 2024-04-21 12:28 | Emergency (ER) | payer MEDICARE, SELFPAY ==
--- NOTE | ~2024-04-21 | XR_ITS ---
EXAMINATION: XR SHOULDER, RIGHT CLINICAL INFORMATION: pain s/p fall COMPARISON: None available. TECHNIQUE: AP external rotation, Grashey, scapular Y, and axillary views of the right shoulder. FINDINGS: 2 surgical anchors are evident in the right humeral head. No acute fracture or subluxation is evident. XR/XR shoulder RT min 2V IMPRESSION: No acute fracture or subluxation of the right shoulder. Electronically signed by: Miguel Angel Tabares MD 04/21/2024 01:51 PM EST
--- NOTE | ~2024-04-21 | XR_ITS ---
EXAMINATION: XR RIBS, RIGHT CLINICAL INFORMATION: pain s/p fall COMPARISON: Chest x-ray dated November 18, 2019 TECHNIQUE: 3 views of the right ribs were obtained. FINDINGS: 2 metallic bevel in the anterior right lower hemithorax. No acute cortical disruption within the ribs, right hemithorax. No consolidation pleural effusion or pneumothorax. Calcified plaque thoracic aorta. Probably shaped morphology of the cardiac apex. Multilevel thoracic and upper lumbar spondylosis. Osteopenia versus the processes. Radiopaque anchors in the right humeral head. Vascular clips in the right upper quadrant abdomen. XR/XR ribs RT min 3V w CXR1V IMPRESSION: No acute rib fracture, right hemithorax. No acute airspace disease. Stable chest. Electronically signed by: Jack Erickson MD 04/21/2024 02:37 PM EST [facility]
[2024-04-21 12:48] VITALS: BP 160/59; PULSE 72; RESP 18; TEMP 36.8; O2SAT 98; BMI 35.2
--- NOTE | 2024-04-21 12:51 | ED_ITS ---
HPI - Fall General Chief Complaint: Fall Stated Complaint: Fall - shoulder injury Time Seen by Provider: 04/21/24 16:51 Source: patient Mode of arrival: ambulatory Limitations: no limitations History of Present Illness ED Provider: Galo Griggs PA-C HPI Narrative: 79 yo female with history of DM2, HTN, HLD, who presents to the ER for evaluation of right shoulder pain, right sided rib pain and right upper back pain after she slipped and fell in her kitchen yesterday. No head strike or LOC. Not on anticoagluation. Limited ROM of the RUE. right arm held in flexion and adduction. She denies any numbness or tingling in her arm or hand. complaint: fall Onset (ago): day(s) (1) Fall from: standing Fall witnessed: no Place fall occurred: home Loss of consciousness: none Prolonged down time: no Symptoms prior to fall: none Context: tripped/slipped Location of injury - extremities: left: shoulder and arm Severity: severe Severity scale (1-10): 9 Quality: sharp Associated symptoms (after fall): denies Related Data Home Medications ?Medication ?Instructions ?Recorded ?Confirmed genultimate lancets 04/20/21 02/01/24 fenofibrate micronized 67 mg 67 mg PO DAILY 08/27/23 02/01/24 capsule Previous Rx's ?Medication ?Instructions ?Recorded blood-glucose meter (OneTouch #1 ea 02/24/21 Ultra2 Meter) blood sugar diagnostic #100 ea 04/20/21 (GenUltimate Test Strip) blood sugar diagnostic (OneTouch #100 ea 04/20/21 Ultra Test strips) triamcinolone acetonide 0.025 % 1 appl topical DAILY #80 grams 08/13/22 topical cream albuterol sulfate 90 mcg/actuation 2 puff inhalation QID #17 grams 12/11/22 aerosol inhaler ciclopirox 0.77 % topical cream 1 appl topical BID 4 weeks #90 12/11/22 (Ciclodan) grams gabapentin 300 mg capsule 300 mg PO BEDTIME #90 caps 12/11/22 diabetic supplies, miscellan. #2 ea 04/22/23 rosuvastatin 10 mg tablet (Crestor) 10 mg PO DAILY #90 tabs 06/18/23 tolterodine 4 mg capsule,extended 4 mg PO BID 90 days #180 caps 04/12/24 release 24 hr metformin 1,000 mg tablet 1,000 mg PO DAILY #90 tabs 10/21/23 metoprolol succinate 100 mg 100 mg PO DAILY #90 tabs 10/21/23 tablet,extended release 24 hr omeprazole 20 mg capsule,delayed 20 mg PO DAILY #90 caps 10/21/23 release valsartan 160 1 tab PO DAILY #90 tabs 10/21/23 mg-hydrochlorothiazide 25 mg tablet cephalexin 500 mg capsule 500 mg PO Q12H 10 days #20 caps 02/01/24 acetaminophen 300 mg-codeine 30 mg 1 tab PO BID PRN severe pain 04/21/24 tablet (scale score 7-10) #6 tabs diclofenac sodium 3 % topical gel 1 appl topical BID PRN pain #100 04/21/24 grams lidocaine 5 % topical patch 1 patch topical DAILY #15 ea 04/21/24 Allergies Allergy/AdvReac Type Severity Reaction Status Date / Time No Known Allergies Allergy Verified 04/21/24 12:51 [No Known Allergies*] Review of Systems Review of Systems: Yes all other systems are reviewed and are negative PMFSH Past Medical History Medical History Non-rheumatic aortic stenosis Heart murmur Venous insufficiency DVT (deep venous thrombosis) GERD (gastroesophageal reflux disease) Vitamin D deficiency Hyperlipidemia Bladder hypertonicity BEKAH (obstructive sleep apnea) Morbid obesity Essential hypertension Surgical History H/O colonoscopy History of shoulder surgery History of total knee replacement History of cholecystectomy History of bilateral cataract extraction History of carpal tunnel release of both wrists History of section Family History Family History Mother Breast cancer Myocardial infarction Father Myocardial infarction Prostate cancer Social History Social History Household Members Other:: , lives alone, 4 sons, Housing: House Are you a primary career services manager to a significant other at home: No Do you presently have visiting nurse or other home services: No Patient Tobacco Use Status: Never used Tobacco e-Cigarette/Vaping Use: Never Used Second Hand Smoke Exposure: No Advance Directives: Yes Advance Directives on File: Yes Advance Directives Date on File: 01/14/24 Do you have a plan to hurt others: No Plan service: No Current occupational status: retired Current occupational exposures/hazards: No Cognitive needs: No Hearing needs: No Vision needs: Yes Physical Exam Vital Signs: Vital Signs: Last Vital Signs Temp 98.2 F 04/21/24 17:05 Pulse 72 04/21/24 17:05 Resp 18 04/21/24 17:05 BP 135/51 L 04/21/24 17:05 Pulse Ox 97 04/21/24 17:05 O2 Del Method Room Air 04/21/24 17:05 BMI result Body Mass Index 35.2 Appearance: Alert. Oriented X3. No acute distress. Head: normocephalic, atraumatic. Eyes: Pupils equal, round and reactive to light. ENT: Pharynx normal. No tonsillar swelling or exudate. Neck: Normal inspection. Neck supple. no midline tenderness. normal ROM CVS: Normal heart rate and rhythm. Pulses normal. Respiratory: No respiratory distress. Breath sounds normal. tenderness to the right middle lateral ribs, no point tenderness, no crepitus. no ecchymosis Abdomen: Soft and nontender. no RUQ tenderness. no flank ecchymosis +BS x4 Skin: Skin warm and dry. Normal skin color. Normal skin turgor. No rashes. Extremities: No lower extremity edema. No joint swelling. Right shoulder with limited abduction laterally. decreased strength in the proximal RUE. tenderness of right lateral and posterior shoulder. euqal hand grasp bilaterally. nontender right elbow and wrist. NV intact distally. Neuro/psych: Oriented X 3. No motor deficit. No sensory deficit. CN II-XII intact. Normal speech and cognition. Medical Decision Making Medical Decision Making MDM Narrative: 79 yo female presenting for evaluation of right shoulder pain, right lateral rib pain and upper back pain s/p mechanical fall yesterday. No head strike or LOC. no preceding chest pain or lightheadedness. RUE with limited ROM due to pain. XR ribs and right shoulder did not show any acute fractures. she has history of rotator cuff surgery x2 20 years ago. she will need outpatient orthopedic follow up. stable for d/c home with family Differential Diagnosis Differential Diagnoses: The differential diagnosis associated with the presentation includes rib fracture, pulmonary contusion, PTX, rib contusion, shoulder sprain, rotator cuff injury, scapular fracture, proximal humerus fracture Independent Interpretation I performed an independent interpretation of an: Plain X-Ray Interpretation: No acute rib fracture or pneumothorax appreciated, no proximal humerus fracture, normal appearance of the AC joint. Agree with radiology read Radiology Impression Discussion of test interpretation with radiology: I have reviewed the radiologist's reading. External Record Review External record reviewed: Prior outpatient labs Tests considered The following testing was considered but not selected: CT of her head and neck were considered given age however she did not hit her head and she is not on anticoagulation Prescription Management I considered prescription management with: Pain Medication Chronic Conditions Patient?s care impacted by: Other (Chronic right shoulder pain due to prior rotator cuff injuries) Critical Care Time Critical Care Time Critical Care Time: No Discharge Plan Discharge Clinical Impression: Acute shoulder pain, Contusion of rib on right side Patient Disposition: Home, Self-Care Instructions: Shoulder Pain (ED), Rib Contusion (ED) Additional Instructions: Your x-rays did not show any evidence of acute fracture. Recommend following up with orthopedics for further evaluation and treatment. Recommend Motrin and Tylenol as needed for pain. Use the pain patches as needed. Use ice several times per day. Follow-up with your doctor. If you develop new or worsening symptoms call 911 or come back to the ER for further evaluation. Prescriptions: New lidocaine 5 % adhesive patch,medicated 1 patch topical DAILY Qty: 15 0RF Rx Instructions: leave on most painful area for up to 12 hrs diclofenac sodium 3 % gel 1 appl topical BID PRN (Reason: pain) Qty: 100 0RF acetaminophen-codeine 300-30 mg tablet 1 tab PO BID PRN (Reason: severe pain (scale score 7-10)) Qty: 6 0RF No Action (DME) diabetic supplies, miscellan. Misc See Rx Instructions .Route Qty: 2 0RF Rx Instructions: extra depth diabetic shoes with 3 pairs custom heat molded innersoles (DME) blood-glucose meter [OneTouch Ultra2 Meter] Misc See Rx Instructions .Route Qty: 1 0RF Rx Instructions: As directed triamcinolone acetonide 0.025 % cream 1 appl topical DAILY Qty: 80 2RF (DME) genultimate lancets 0 .Route .MEDSUPPLY (DME) GenUltimate Test Strip Strip See Rx Instructions .Route Qty: 100 0RF Rx Instructions: As directed (DME) OneTouch Ultra Test Strip See Rx Instructions .Route Qty: 100 4RF Rx Instructions: qd gabapentin 300 mg capsule 300 mg PO BEDTIME Qty: 90 0RF albuterol sulfate 90 mcg/actuation HFA aerosol inhaler 2 puff inhalation QID Qty: 17 4RF ciclopirox [Ciclodan] 0.77 % cream 1 appl topical BID 28 Days Qty: 90 1RF rosuvastatin [Crestor] 10 mg tablet 10 mg PO DAILY Qty: 90 3RF metformin 1,000 mg tablet 1,000 mg PO DAILY Qty: 90 3RF omeprazole 20 mg capsule,delayed release(DR/EC) 20 mg PO DAILY Qty: 90 3RF valsartan-hydrochlorothiazide 160-25 mg tablet 1 tab PO DAILY Qty: 90 3RF metoprolol succinate 100 mg tablet extended release 24 hr 100 mg PO DAILY Qty: 90 3RF cephalexin 500 mg capsule 500 mg PO Q12H 10 Days Qty: 20 0RF tolterodine 4 mg capsule,extended release 24hr 4 mg PO BID 90 Days Qty: 180 3RF fenofibrate micronized 67 mg capsule 67 mg PO DAILY Referrals: [facility] [place] [facility] [Provider Group] Saige Salamanca MD [Primary Care Provider] - Interventions: ED Discharge Assessment Last Done: 04/21/24 17:05 Discharge Date/Time: 04/21/24 17:06 Print Language: Guamanian
[2024-04-21 16:52] VITALS: BP 135/51; PULSE 72; RESP 18; TEMP 36.8; O2SAT 97
[2024-04-21 17:05] VITALS: BP 135/51; PULSE 72; RESP 18; TEMP 36.8; O2SAT 97
== END 2024-04-21 17:06 | disposition home or self-care (01) ==
LOC: HO.ED 16:57
PROVIDERS: Emergency Provider Emergency Medicine Emergency Medical Services; PCP Internal Medicine
DX: S20.211A Contusion of right front wall of thorax, initial encounter (principal); W01.0XXA Fall on same level from slipping, tripping and stumbling without subsequent striking against object, initial encounter; M25.511 Pain in right shoulder; E11.9 Type 2 diabetes mellitus without complications; I10 Essential (primary) hypertension; E78.5 Hyperlipidemia, unspecified; Y93.9 Activity, unspecified; Y92.010 Kitchen of single-family (private) house as the place of occurrence of the external cause; Y99.9 Unspecified external cause status
CPT/HCPCS: 71101; 73030; 99282; 99283

== ENCOUNTER → 2024-04-21 12:51 | Outpatient (BNV) | payer MEDICARE, SELFPAY | PROVIDERS: PCP Internal Medicine; Visit Provider Radiology Diagnostic Radiology | DX: M47.895 Other spondylosis, thoracolumbar region (principal) | CPT/HCPCS: 71101 ==

== ENCOUNTER 2024-05-11 08:48 | Outpatient (AMB) | payer MEDICARE, SELFPAY ==
--- NOTE | 2024-05-11 08:52 | MHC.OFFVIS ---
Vital Signs 05/11/24 09:02 Height 5 ft Weight 180 lb BMI 35.2 Handedness Right Intake Visit Reasons: New prob- ED f/u Right shoulder pain Intake Note: Nimo is a 79 year old right hand dominant female for a evaluation of her right shoulder pain, DOI . Hx of right shoulder [id number] reports she became dizzy which made her fall. She is having pain all over her shoulder and down to her elbow, however she is also having pain in the right side of her back. Patient reports she has been taking Tylenol which gives her mild relief. Packaging Sales Representative Services: Packaging Sales Representative Present (Tiffany ([id number])) Allergies No Known Allergies [No Known Allergies*] Allergy (Verified 05/11/24 09:01) Medication List - Last Reconciled 05/11/24 by Marilyn Panda PA-C acetaminophen-codeine 300-30 mg 1 tab PO BID PRN albuterol sulfate 90 mcg/actuation 2 puffs inhalation QID blood sugar diagnostic (GenUltimate Test Strip) As directed blood sugar diagnostic (OneTouch Ultra Test strips) qd blood-glucose meter (OneTouch Ultra2 Meter) As directed cephalexin 500 mg PO Q12H 10 days ciclopirox 0.77% (Ciclodan) 1 appl topical BID 4 weeks diabetic supplies, miscellan. extra depth diabetic shoes with 3 pairs custom heat molded innersoles diclofenac sodium 3% 1 appl topical BID PRN fenofibrate micronized 67 mg PO DAILY gabapentin 300 mg PO BEDTIME [genultimate lancets ] lidocaine 5% 1 patch topical DAILY metformin 1,000 mg PO DAILY metoprolol succinate ER 100 mg PO DAILY omeprazole 20 mg PO DAILY rosuvastatin (Crestor) 10 mg PO DAILY tolterodine ER 4 mg PO BID 90 days triamcinolone acetonide 0.025% 1 appl topical DAILY valsartan-hydrochlorothiazide 160-25 mg 1 tab PO DAILY HPI HPI New prob- ED f/u Right shoulder pain: Details: 79-year-old right hand dominant female who presents to the office today with an senior administrative services officer for an ED follow-up of right shoulder pain after a fall, 04/20/24. She reports she became dizzy which made her to fall. She currently states she has weakness and pain in her shoulder that radiates to elbow and down to her hand. She is unable to hold her hand up for long time due to the pain. She has been taking Tylenol for her pain with mild relief. [facility] Medical History Non-rheumatic aortic stenosis Heart murmur Venous insufficiency DVT (deep venous thrombosis) GERD (gastroesophageal reflux disease) Vitamin D deficiency Hyperlipidemia Bladder hypertonicity BEKAH (obstructive sleep apnea) Morbid obesity Essential hypertension Surgical History H/O colonoscopy History of shoulder surgery History of total knee replacement History of cholecystectomy History of bilateral cataract extraction History of carpal tunnel release of both wrists History of section Family History Mother Breast cancer Myocardial infarction Father Myocardial infarction Prostate cancer Social History Household Members Other:: , lives alone, 4 sons, Housing: House Are you a primary caregivers non medical to a significant other at home: No Do you presently have visiting nurse or other home services: No Patient Tobacco Use Status: Never used Tobacco e-Cigarette/Vaping Use: Never Used Second Hand Smoke Exposure: No Advance Directives Date on File: 01/14/24 service: No Current occupational status: retired Current occupational exposures/hazards: No Cognitive needs: No Hearing needs: No Vision needs: Yes Review of Systems Const All systems reviewed & are unremarkable except as noted in HPI and below Physical Exam Vital Signs: BMI result Body Mass Index 35.2 Extrem Other: Right shoulder: Normal to inspection. Surgical scar present. She has mild tenderness over proximal bicep tendon and discomfort with forward flexion and abduction. NVI. Results Reviewed Results Reviewed: X-rays of the right shoulder obtained in the office today show RTC anchors intact. There is evidence of what appears to be a nondisplaced greater tuberosity fracture. No dislocations noted. Assessment & Plan Assessment & Plan (1) Fracture of greater tuberosity of right humerus: Code(s): S42.251A - Displaced fracture of greater tuberosity of right humerus, initial encounter for closed fracture Category: Medical Plan I recommended her a course of physical therapy to work on ROM and scapular stabilization. She will avoid RTC strengthening at this time. I would like to see her back in 6 weeks with new x-rays, sooner if needed. Orders: Orders PT Evaluation and Treatment Today S42.251A - Displaced fracture of greater tuberosity of right humerus, initial encounter for closed fracture XR shoulder RT min 2V Today M25.511 - Pain in right shoulder Patient Instructions: Scribed for Marilyn Panda PA-C, by Anselmo Tucker lpn or medical assistant, on 05/11/2024 at 8:45 AM EST.? I, Marilyn Panda PA-C, have personally reviewed and agree with the information entered by the scribe. Coding Level of Care Code Est Pt Level 3 (49913) Complex EM visit Add On G2211 Diagnoses Fracture of greater tuberosity of right humerus S42.251A
[2024-05-11 09:02] VITALS: BMI 35.2
== END 2024-05-11 09:48 | disposition home or self-care (01) ==
LOC: HO.HOS 08:48
PROVIDERS: PCP Internal Medicine; Visit Provider Physician Assistant
DX: S42.251A Displaced fracture of greater tuberosity of right humerus, initial encounter for closed fracture (principal)
CPT/HCPCS: 99213; G2211

== ENCOUNTER 2024-05-11 08:48 | Outpatient (REF) | payer MEDICARE, SELFPAY ==
--- NOTE | ~2024-05-11 | XR_ITS ---
EXAMINATION: XR SHOULDER RIGHT CLINICAL INFORMATION: Pain in right shoulder M25.511. COMPARISON: XR Right shoulder 04/21/2024 (report only). TECHNIQUE: Three views of the right shoulder. FINDINGS: Postsurgical changes including a rotator cuff repair anchors within the humeral head, and partial resection of the acromioclavicular joint. There is degenerative spurring along the greater tuberosity and subacromial spurring. Overall, no significant change. XR/XR shoulder RT min 2V IMPRESSION: Postsurgical and degenerative changes of the right shoulder with no significant change. Electronically signed by: Vincent Nunez MD 06/18/2024 08:42 AM [facility]
== END 2024-05-11 08:49 | disposition home or self-care (01) ==
LOC: HO.HOSX 08:48
PROVIDERS: PCP Internal Medicine; Visit Provider Physician Assistant
DX: M25.511 Pain in right shoulder (principal); S42.251D Displaced fracture of greater tuberosity of right humerus, subsequent encounter for fracture with routine healing; Z98.890 Other specified postprocedural states
CPT/HCPCS: 73030; 99212

== ENCOUNTER 2024-06-22 08:47 | Outpatient (AMB) | payer MEDICARE, SELFPAY ==
[2024-06-22 08:50] VITALS: BMI 35.2
--- NOTE | 2024-06-22 08:50 | MHC.OFFVIS ---
Vital Signs 06/22/24 08:50 Height 5 ft Weight 180 lb BMI 35.2 Intake Visit Reasons: ov- RT humerus fx, DOI w/ XR Intake Note: Nimo is a 79 year old right hand dominant female for a evaluation of her right humerus fx, DOI . X-rays updated. Patient reports a little better in her ROM with attending PT. States constant pain in her shoulder that radiates toward her clavicle. Cath Lab Technologist Required: Yes Cath Lab Technologist Services: Cath Lab Technologist Offered & Declined Cath Lab Technologist Name: Sumaya ID#[id number] Allergies No Known Allergies [No Known Allergies*] Allergy (Verified 06/22/24 09:04) HPI HPI ov- RT humerus fx, DOI w/ XR: Details: 79 yo female returns to the injury f/u Rt greater tuberosity fracture 04/20/24. She has been doing PT and her ROM is improving. She has pain only with lifting overhead. [facility] Medical History Non-rheumatic aortic stenosis Heart murmur Venous insufficiency DVT (deep venous thrombosis) GERD (gastroesophageal reflux disease) Vitamin D deficiency Hyperlipidemia Bladder hypertonicity BEKAH (obstructive sleep apnea) Morbid obesity Essential hypertension Surgical History H/O colonoscopy History of shoulder surgery History of total knee replacement History of cholecystectomy History of bilateral cataract extraction History of carpal tunnel release of both wrists History of section Family History Mother Breast cancer Myocardial infarction Father Myocardial infarction Prostate cancer Social History Household Members Other:: , lives alone, 4 sons, Housing: House Are you a primary health care assistant to a significant other at home: No Do you presently have visiting nurse or other home services: No Patient Tobacco Use Status: Never used Tobacco e-Cigarette/Vaping Use: Never Used Second Hand Smoke Exposure: No Advance Directives Date on File: 01/14/24 service: No Current occupational status: retired Current occupational exposures/hazards: No Cognitive needs: No Hearing needs: No Vision needs: Yes Review of Systems Const All systems reviewed & are unremarkable except as noted in HPI and below Physical Exam Vital Signs: BMI result Body Mass Index 35.2 Extrem Other: Right shoulder: Normal to inspection. Surgical scar present. No tenderness over proximal humerus. FF to 100. Discomfort with IR. NVI. Results Reviewed Results Reviewed: X-rays of the right shoulder obtained in the office today show RTC anchors intact. There is evidence of what appears to be a nondisplaced greater tuberosity fracture with interval healing. No dislocations noted. Assessment & Plan Assessment & Plan (1) Fracture of greater tuberosity of right humerus: Code(s): S42.251A - Displaced fracture of greater tuberosity of right humerus, initial encounter for closed fracture Category: Medical Qualifiers: Encounter type: subsequent encounter Fracture type: closed Fracture alignment: nondisplaced Fracture healing: with routine healing Qualified Code(s): S42.254D - Nondisplaced fracture of greater tuberosity of right humerus, subsequent encounter for fracture with routine healing Plan: She will continue to work with physical therapy and progress to rotator cuff/periscapular stabilization. Increase activities as tolerated and if symptoms persist or worsen over the next several weeks she can contact our office otherwise follow up as needed. Orders: Orders XR shoulder RT min 2V Today M25.511 - Pain in right shoulder PT Evaluation and Treatment Today S42.251A - Displaced fracture of greater tuberosity of right humerus, initial encounter for closed fracture Coding Level of Care Code Global (63803) Diagnoses Closed nondisplaced fracture of greater tuberosity of right humerus with routine healing, subsequent encounter S42.254D Encounter type: subsequent encounter Fracture type: closed Fracture alignment: nondisplaced Fracture healing: with routine healing
== END 2024-06-22 09:28 | disposition home or self-care (01) ==
PROVIDERS: PCP Internal Medicine; Visit Provider Physician Assistant
DX: S42.254D Nondisplaced fracture of greater tuberosity of right humerus, subsequent encounter for fracture with routine healing (principal)
CPT/HCPCS: 99213

== ENCOUNTER 2024-07-01 09:34 | Outpatient (AMB) | payer MEDICARE, SELFPAY ==
[2024-07-01 09:37] VITALS: BP 126/70; PULSE 78; RESP 18; TEMP 36.5; O2SAT 98; BMI 35.9
--- NOTE | 2024-07-01 09:37 | AM.OFFVISMDC ---
Intake Vital Signs 07/01/24 09:37 Height 5 ft Weight 184 lb BMI 35.9 BP 126/70 Blood Pressure Location Lt brachial Position Sitting Respiration 18 Pulse 78 Pulse Source Pulse Oximeter Temp 97.7 F Temp Source Oral Pulse Oximetry (%) 98 Oxygen Delivery Method Room Air Intake Visit Reasons: AWV Intake Note: Pt is here today for a AWV. Pt needs a refill on her medications. Pt also needs a script for diabetic shoes. Allergies No Known Allergies [No Known Allergies*] Allergy (Verified 07/01/24 09:40) Medication List - Last Reconciled 07/01/24 by Saige Salamanca MD albuterol sulfate 90 mcg/actuation 2 puffs inhalation QID blood sugar diagnostic (GenUltimate Test Strip) As directed blood sugar diagnostic (OneTouch Ultra Test strips) qd blood-glucose meter (OneTouch Ultra2 Meter) As directed ciclopirox 0.77% (Ciclodan) 1 appl topical BID 4 weeks diabetic supplies, miscellan. extra depth diabetic shoes with 3 pairs custom heat molded innersoles diclofenac sodium 3% 1 appl topical BID PRN fenofibrate micronized 67 mg PO DAILY gabapentin 300 mg PO BEDTIME [genultimate lancets ] lidocaine 5% 1 patch topical DAILY metformin 1,000 mg PO DAILY metoprolol succinate ER 100 mg PO DAILY omeprazole 20 mg PO DAILY rosuvastatin (Crestor) 10 mg PO DAILY tolterodine ER 4 mg PO BID 90 days triamcinolone acetonide 0.025% 1 appl topical DAILY valsartan-hydrochlorothiazide 160-25 mg 1 tab PO DAILY HPI AWV HPI Details Initiated the conversation about Advanced Directives. Advanced Directives help? patients prepare for current and future decisions about their medical treatment? and place of care. Discussed with patient that it is a process where a patients? current condition and prognosis are reviewed, their wishes for information? regarding their illness are elicited, and likely medical dilemmas are presented? and options discussed. The form can be amended as needed, reviewed yearly and? make changes as needed IPPE/AWV ? year old presents? for her ? Annual? Wellness Visit, initial visit.? Medical / Social History Reviewed? Past Medical History ?Yes? . ? [facility] [place]? of Care / Care Team list updated ?Yes . ? Surgical/Hospitalization? History ?Yes . ? Current Medications? (including OTC and supplements) ?Yes . ? Family History ?Yes? . ? Tobacco? Control form ?Yes . ? AUDIT-C (Alcohol use) form? ?Yes . ? Illicit drug use in Social? History ?Yes . ? Current diagnosis of? depression? ?No ? Appropriate PHQ2/PHQ9? completed ?Yes . ? Data entered by ?Medical? Data Collector and reviewed by provider ? Fall Risk ? Fall? History? Have you had any falls with? injury in the past year? ?No . ? Have you had two or more? falls in the past year? ?No . ? Fall Risk Assessment: ?No? falls in the past year . ? HRA filled out by? the patient, reviewed by Provider and scanned. ? IPPE/AWV ? Balance? Romberg? ?Yes . ? Tandem? walk ?Yes . ? Walk and? Turn ?Yes . ? Rise from? sit to stand ?Yes . ?Vision? Corrective? lens ?Yes ? Vision? screen ? Up-to-date, has an appointment [] for vision? screening and glaucoma screening ?Hearing? Whisper? test ?pass .? Initiated the conversation about Advanced Directives. Advanced Directives help? patients prepare for current and future decisions about their medical treatment? and place of care. Discussed with patient that it is a process where a patients? current condition and prognosis are reviewed, their wishes for information? regarding their illness are elicited, and likely medical dilemmas are presented? and options discussed. The form can be amended as needed, reviewed yearly and? make changes as needed Written? Plan?Completed. See Patient? Documents. [facility] Medical History Non-rheumatic aortic stenosis Heart murmur Venous insufficiency DVT (deep venous thrombosis) GERD (gastroesophageal reflux disease) Vitamin D deficiency Hyperlipidemia Bladder hypertonicity BEKAH (obstructive sleep apnea) Morbid obesity Essential hypertension Surgical History H/O colonoscopy History of shoulder surgery History of total knee replacement History of cholecystectomy History of bilateral cataract extraction History of carpal tunnel release of both wrists History of section Family History Mother Breast cancer Myocardial infarction Father Myocardial infarction Prostate cancer Social History Household Members Other:: , lives alone, 4 sons, Housing: House Are you a primary healthcare network pricing consultant to a significant other at home: No Do you presently have visiting nurse or other home services: No Patient Tobacco Use Status: Never used Tobacco e-Cigarette/Vaping Use: Never Used Second Hand Smoke Exposure: No Advance Directives Date on File: 01/14/24 service: No Current occupational status: retired Current occupational exposures/hazards: No Cognitive needs: No Hearing needs: No Vision needs: Yes Questionnaire Medicare Wellness Checkup [age] What gender do you identify with?: female During the past 4 weeks, how much have you been bothered by emotional problems such as feeling anxious, depressed, irritable, sad or downhearted, and blue?: not at all During the past 4 weeks, has your physical & emotional health limited your social activities with family, friends, neighbors, or groups?: not at all During the past 4 weeks, how much bodily pain have you generally had?: mild pain During the past 4 weeks, was someone available to help you if you needed & wanted help?: yes, as much as I wanted During the past 4 weeks, what was the hardest physical activity you could do for at least 2 minutes?: moderate Can you get to places out of walking distance without help? (For eg., can you travel alone on buses, taxis or drive your car?): Yes Can you go shopping for groceries or clothes without someone's help?: Yes Can you prepare your own meals?: Yes Can you do your housework without help?: Yes Because of any health problems, do you need the help of another person with your personal care needs such as eating, bathing, dressing or getting around the house?: No Can you handle your own money without help?: Yes During the past 4 weeks, how would you rate your health in general?: good During the past 4 weeks how have things been going for you?: good & bad parts about equal Are you having difficulties driving your car?: no Do you always fasten your seat belt when you are in a car?: yes, usually During past 4 weeks, have you been bothered by the following: never: Falling or dizzy when standing up, Sexual problems?, Trouble eating well?, Teeth or denture problems? and Problems using the telephone? and seldom: Tiredness or fatigue? Have you fallen 2 or more times in the past year?: No Are you afraid of falling?: No Are you a smoker?: no During the past 4 weeks, how many drinks of wine, beer, or other alcoholic beverages did you have?: no alcohol at all Do you exercise for about 20 minutes 3 or more times a week?: no, I usually do not exercise this much Have you been given information to help with the following?: no: Hazards in your house that might hurt you? and no: Keeping track of your medications? How often do you have trouble taking medicines the way you have been told to take them?: I always take medicine as prescribed How confident are you that you can control & manage most of your health problems?: very confident What is your race?: White PHQ-9 Over the last 2 weeks, how often have you been bothered by any of the following problems? 1. Little interest or pleasure in doing things: not at all 2. Feeling down, depressed, or hopeless: not at all 3. Trouble falling or staying asleep, or sleeping too much: not at all 4. Feeling tired or having little energy: not at all 5. Poor appetite or overeating: not at all 6. Feeling bad about yourself - or that you are a failure or have let yourself or your family down: not at all 7. Trouble concentrating on things, such as reading the newspaper or watching television: not at all 8. Moving or speaking so slowly that other people could have noticed. Or the opposite - being so fidgety or restless that you have been moving around a lot more than usual: not at all 9. Thoughts that you would be better off or of hurting yourself in some way: not at all Total score: 0 Depression Screening Interpretation: Negative Depression Screening Done: Yes 71287 - PHQ-9 Billing: Yes Source: Developed by Drs. Prudencio Ferreira, Micki Krishnan, Eric Jones and colleagues, with an educational francois from [employer]. Review of Systems Const All systems reviewed & are unremarkable except as noted in HPI and below Eyes Reports no additional complaints ENT Reports no additional complaints Card Reports no additional complaints Resp Reports no additional complaints GI Reports no additional complaints Reports no additional complaints Physical Exam Vital Signs: Last Vital Signs Temp 97.7 F 07/01/24 09:37 Pulse 78 07/01/24 09:37 Resp 18 07/01/24 09:37 BP 126/70 07/01/24 09:37 Pulse Ox 98 07/01/24 09:37 Oxygen Delivery Method Room Air 07/01/24 09:37 BMI result Body Mass Index 35.9 Const General: no acute distress HEENT Head: Yes normal to inspection Ears: hearing grossly normal bilaterally Eyes General: appearance normal, both eyes and all related structures Resp Effort & Inspection: normal respiratory effort Auscultation: clear to auscultation bilaterally Cardio Rhythm: regular rhythm Heart sounds: S1 normal heart sound present and S2 normal heart sound present GI Inspection: Yes normal to inspection Palpation (GI): Soft to palpation Percussion: Yes normal to percussion Auscultation: normal bowel sounds Extrem General: Yes no clubbing, cyanosis or edema Assessment & Plan Assessment & Plan (1) Type 2 diabetes mellitus with unspecified complications: Code(s): E11.8 - Type 2 diabetes mellitus with unspecified complications Plan: A1c was 6.4, ADA diet regular exercise weight loss discussed with the patient continue current medications return in 6 months with a fasting labs before (2) BEKAH (obstructive sleep apnea): Comment: Continue Cpap Code(s): G47.33 - Obstructive sleep apnea (adult) (pediatric) Plan: Continue Cpap (3) Morbid obesity: Code(s): E66.01 - Morbid (severe) obesity due to excess calories Plan: The decreasing caloric intake increasing physical activity weight loss discussed with the patient. (4) Essential hypertension: Code(s): I10 - Essential (primary) hypertension Plan: Continue current medications (5) Annual physical exam: Code(s): Z00.00 - Encounter for general adult medical examination without abnormal findings Plan: Well-balanced diet regular physical activity discussed with the patient. Orders: Orders Complete Blood Count Auto Diff 6 Months E11.8 - Type 2 diabetes mellitus with unspecified complications, E55.9 - Vitamin D deficiency, unspecified, E66.01 - Morbid (severe) obesity due to excess calories, E78.5 - Hyperlipidemia, unspecified, I10 - Essential (primary) hypertension Lipid Panel 6 Months E11.8 - Type 2 diabetes mellitus with unspecified complications, E55.9 - Vitamin D deficiency, unspecified, E66.01 - Morbid (severe) obesity due to excess calories, E78.5 - Hyperlipidemia, unspecified, I10 - Essential (primary) hypertension Microalbumin, Random (w Creat) Today E11.8 - Type 2 diabetes mellitus with unspecified complications Comprehensive [place]. Panel Fast 6 Months E11.8 - Type 2 diabetes mellitus with unspecified complications, E55.9 - Vitamin D deficiency, unspecified, E66.01 - Morbid (severe) obesity due to excess calories, E78.5 - Hyperlipidemia, unspecified, I10 - Essential (primary) hypertension Hemoglobin A1c 6 Months E11.8 - Type 2 diabetes mellitus with unspecified complications, E55.9 - Vitamin D deficiency, unspecified, E66.01 - Morbid (severe) obesity due to excess calories, E78.5 - Hyperlipidemia, unspecified, I10 - Essential (primary) hypertension Medications: New diabetic supplies, miscellan. diabetic shoes , custom orthotics 2 ea 3RF Refilled rosuvastatin (Crestor) 10 mg PO DAILY 90 tabs 3RF omeprazole 20 mg PO DAILY 90 caps 3RF metformin 1,000 mg PO DAILY 90 tabs 3RF metoprolol succinate ER 100 mg PO DAILY 90 tabs 3RF valsartan-hydrochlorothiazide 160-25 mg 1 tab PO DAILY 90 tabs 3RF fenofibrate micronized 67 mg PO DAILY 90 caps 3RF Discontinued gabapentin Discontinued Reason: Doctor's Order 300 mg PO BEDTIME 90 caps 0RF Quality Reporting (2019) Depression/Bipolar (159/160/161/177) PHQ-9: Total score: 0 Coding Level of Care Code Medicare Subsequent (G0439) Diagnoses Type 2 diabetes mellitus with unspecified complications E11.8 BEKAH (obstructive sleep apnea) G47.33 Morbid obesity E66.01 Essential hypertension I10 Annual physical exam Z00.00 CPT Codes Advance Care Planning - Advance Care Planning discussion: On file, no changes ([id number]) Advance Care Planning - Time spent: 1-15 minutes, on File ([id number]) Additional Codes PHQ-9 - 07411 - PHQ-9 Billing: Yes ([id number]) Advance Care Planning Advance Care Planning discussion: On file, no changes Forms completed: Health Care Proxy Time spent: 1-15 minutes, on File Did not discuss due to Cultural/Spiritual beliefs: Yes
== END 2024-07-01 10:19 | disposition home or self-care (01) ==
PROVIDERS: Visit Provider Internal Medicine
DX: Z00.00 Encounter for general adult medical examination without abnormal findings (principal); E11.8 Type 2 diabetes mellitus with unspecified complications; E66.01 Morbid (severe) obesity due to excess calories; Z68.35 Body mass index [BMI] 35.0-35.9, adult; G47.33 Obstructive sleep apnea (adult) (pediatric); I10 Essential (primary) hypertension

== ENCOUNTER → 2024-07-01 09:34 | Outpatient (BNVA) | payer MEDICARE, SELFPAY | PROVIDERS: Visit Provider Internal Medicine | DX: Z00.00 Encounter for general adult medical examination without abnormal findings (principal); E11.8 Type 2 diabetes mellitus with unspecified complications; G47.33 Obstructive sleep apnea (adult) (pediatric); E66.01 Morbid (severe) obesity due to excess calories; I10 Essential (primary) hypertension | CPT/HCPCS: 96127 ==

== ENCOUNTER 2024-07-02 08:55 | Outpatient (RCR) | payer MEDICARE, SELFPAY | END 2024-07-29 12:07 | disposition home or self-care (01) | LOC: HO.PT 08:55 | PROVIDERS: PCP Internal Medicine; Visit Provider Physician Assistant | DX: S42.251D Displaced fracture of greater tuberosity of right humerus, subsequent encounter for fracture with routine healing (principal) | CPT/HCPCS: 97110; 97140; 97162; 97530 ==

== ENCOUNTER 2024-08-04 08:32 | Outpatient (AMB) | payer MEDICARE, SELFPAY ==
[2024-08-04 08:43] VITALS: BP 146/78; PULSE 72; BMI 36.1
--- NOTE | 2024-08-04 08:43 | MHC.OFFVIS ---
Vital Signs 08/04/24 08:43 Height 5 ft Weight 184 lb 11.958 oz BMI 36.1 BP 146/78 H Blood Pressure Location Rt brachial Position Sitting Pulse 72 Intake Visit Reasons: 1 yr f/up Psychological Operations Required: Yes Psychological Operations Services: Psychological Operations Present Psychological Operations Name: Fawn [id number] Accompanied by: Self / Same As Patient Allergies No Known Allergies [No Known Allergies*] Allergy (Verified 07/01/24 09:40) Medication List - Last Reconciled 08/04/24 by Hiro Doip MD albuterol sulfate 90 mcg/actuation 2 puffs inhalation Q6H PRN blood sugar diagnostic (GenUltimate Test Strip) As directed blood sugar diagnostic (OneTouch Ultra Test strips) qd blood-glucose meter (OneTouch Ultra2 Meter) As directed ciclopirox 0.77% (Ciclodan) 1 appl topical BID 4 weeks diabetic supplies, miscellan. extra depth diabetic shoes with 3 pairs custom heat molded innersoles diabetic supplies, miscellan. diabetic shoes , custom orthotics fenofibrate micronized 67 mg PO DAILY [genultimate lancets ] metformin 1,000 mg PO DAILY metoprolol succinate ER 100 mg PO DAILY omeprazole 20 mg PO DAILY rosuvastatin (Crestor) 10 mg PO DAILY tolterodine ER 4 mg PO BID 90 days triamcinolone acetonide 0.025% 1 appl topical DAILY valsartan-hydrochlorothiazide 160-25 mg 1 tab PO DAILY HPI Comments Details: Meghan returns for follow up. In the past, she has been seen for chest pains but no clear cardiac etiology identified. Many risk factors including obesity, diabetes, hypertension, untreated sleep apnea. Overall, feels just about the same as before. No anginal-type symptoms. When she lies flat, she can feel short of breath which is probably from her weight as well as untreated sleep apnea. She states the CPAP mask is costing more than a 1000 dollars and hence she does not want to use it. Otherwise, no new concerns. More or less the same as before. Discussed using asl interpreter. [facility] Medical History Non-rheumatic aortic stenosis Heart murmur Venous insufficiency DVT (deep venous thrombosis) GERD (gastroesophageal reflux disease) Vitamin D deficiency Hyperlipidemia Bladder hypertonicity BEKAH (obstructive sleep apnea) Morbid obesity Essential hypertension Surgical History H/O colonoscopy History of shoulder surgery History of total knee replacement History of cholecystectomy History of bilateral cataract extraction History of carpal tunnel release of both wrists History of section Family History Mother Breast cancer Myocardial infarction Father Myocardial infarction Prostate cancer Social History Household Members Other:: , lives alone, 4 sons, Housing: House Are you a primary adult live in caregiver to a significant other at home: No Do you presently have visiting nurse or other home services: No Patient Tobacco Use Status: Never used Tobacco e-Cigarette/Vaping Use: Never Used Second Hand Smoke Exposure: No Advance Directives Date on File: 01/14/24 service: No Current occupational status: retired Current occupational exposures/hazards: No Cognitive needs: No Hearing needs: No Vision needs: Yes Review of Systems Const Denies chills, Denies fatigue, Denies fever(s), Denies weight gain and Denies weight loss ENT Denies dizziness Card Denies chest pain, Denies leg edema, Denies lightheadedness, Denies palpitations, Reports dyspnea on exertion, Denies orthopnea and Denies other Resp Denies cough and Reports dyspnea on exertion GI Denies hematochezia and Denies change in stool character Musc Denies abnormal gait, Denies muscle weakness, Denies numbness, Denies radiating pain into limb and Denies tingling Neuro Denies abnormal gait, Denies dizziness, Denies numbness and Denies tingling Endo Denies fatigue and Denies palpitations Physical Exam Vital Signs: Last Vital Signs Pulse 72 08/04/24 08:43 BP 146/78 H 08/04/24 08:43 BMI result Body Mass Index 36.1 Const General: comfortable and no acute distress Orientation/consciousness: patient oriented x3 HEENT Other: Unremarkable Head: Yes normal to inspection Neck Neck: Yes normal visual inspection Chest Chest palpation & inspection: normal inspection of the chest Resp Auscultation: clear to auscultation bilaterally Cardio Palpation: normal PMI Heart sounds: S1 normal heart sound present, S2 normal heart sound present, no gallops, Murmur heart sound present systolic II/ and at the right sternal border and no rubs GI Palpation (GI): Soft to palpation Back/Spine/Pelvis Other: unremarkable Skin General skin exam: no rashes or lesions noted Neuro General: patient oriented x3 Extrem General: Yes normal to inspection Psych Mental Status: mental status grossly normal Office Procedures EKG Details: EKG with underlying sinus rhythm at 72/Min; no significant ST-T changes and otherwise unremarkable. Normal VA and corrected QT. appearance of possible septal infarct is most likely from her body habitus. [id number], Complete Assessment & Plan Assessment & Plan (1) Non-rheumatic aortic stenosis: Code(s): I35.0 - Nonrheumatic aortic (valve) stenosis Category: Medical Plan: In the last echocardiogram, [id number] aortic stenosis. We can continue to monitor periodically. (2) Essential hypertension: Code(s): I10 - Essential (primary) hypertension Category: Medical Plan: On metoprolol and valsartan/HCTZ. Borderline high today. (3) Type 2 diabetes mellitus with unspecified complications: Code(s): E11.8 - Type 2 diabetes mellitus with unspecified complications Category: Medical Plan: On metformin. Last hemoglobin A1c is 6.4%. (4) BEKAH (obstructive sleep apnea): Comment: Continue Cpap Code(s): G47.33 - Obstructive sleep apnea (adult) (pediatric) Category: Medical Plan: Not using CPAP. Has been discussed several times. (5) Morbid obesity: Code(s): E66.01 - Morbid (severe) obesity due to excess calories Category: Medical Plan: Slightly less than what it used to be but still high BMI. Doubt anymore weight loss as feasible. (6) Precordial chest pain: Code(s): R07.2 - Precordial pain Category: Medical Plan: Atypical chest pains in the past, but nothing clearly anginal. Myocardial perfusion imaging study from 2023-normal perfusion. In the echocardiogram, basal inferior/inferoseptal hypokinesis described but when I reviewed the images, not very convincing. No new concerns at this time. Can follow clinically. Orders: Orders CA echo transthoracic complete 1 Year I35.0 - Nonrheumatic aortic (valve) stenosis Coding Level of Care Code Est Pt Level 4 (26319) Complex EM visit Add On G2211 Diagnoses Non-rheumatic aortic stenosis I35.0 Essential hypertension I10 Type 2 diabetes mellitus with unspecified complications E11.8 BEKAH (obstructive sleep apnea) G47.33 Morbid obesity E66.01 Precordial chest pain R07.2 CPT Codes EKG - CPT: 61003-[id number], Complete ([id number])
== END 2024-08-04 09:16 | disposition home or self-care (01) ==
PROVIDERS: PCP Internal Medicine; Visit Provider Internal Medicine
DX: I35.0 Nonrheumatic aortic (valve) stenosis (principal); I10 Essential (primary) hypertension; E11.8 Type 2 diabetes mellitus with unspecified complications; G47.33 Obstructive sleep apnea (adult) (pediatric); E66.01 Morbid (severe) obesity due to excess calories; R07.2 Precordial pain
CPT/HCPCS: 93010; 99214; G2211

== ENCOUNTER → 2024-08-04 08:32 | Outpatient (BNVA) | payer MEDICARE, SELFPAY | PROVIDERS: PCP Internal Medicine; Visit Provider Internal Medicine | DX: I35.0 Nonrheumatic aortic (valve) stenosis (principal); I10 Essential (primary) hypertension; R07.2 Precordial pain; E11.8 Type 2 diabetes mellitus with unspecified complications; G47.33 Obstructive sleep apnea (adult) (pediatric); E66.01 Morbid (severe) obesity due to excess calories; Z68.36 Body mass index [BMI] 36.0-36.9, adult; R94.31 Abnormal electrocardiogram [ECG] [EKG] | CPT/HCPCS: 93005; 99212 ==

== ENCOUNTER 2024-09-11 13:39 | Outpatient (AMB) | payer MEDICARE, SELFPAY ==
--- NOTE | 2024-09-11 13:19 | A.OFFVIS_ITS ---
Intake Visit Reasons: 1y follow up Intake Note: Patient presents today for a 1 year follow up Urology medications: tolteridone Blood thinners: none Private Investigator Surveillance Required: Yes Private Investigator Surveillance Name: [id number] Information Interpreted: non-clinical & clinical Accompanied by: Self / Same As Patient Allergies No Known Allergies [No Known Allergies*] Allergy (Verified 09/11/24 13:45) Medication List - Last Reconciled 09/11/24 by Yamileth Valladares MD albuterol sulfate 90 mcg/actuation 2 puffs inhalation Q6H PRN blood sugar diagnostic (GenUltimate Test Strip) As directed blood sugar diagnostic (OneTouch Ultra Test strips) qd blood-glucose meter (OneTouch Ultra2 Meter) As directed ciclopirox 0.77% (Ciclodan) 1 appl topical BID 4 weeks diabetic supplies, miscellan. extra depth diabetic shoes with 3 pairs custom heat molded innersoles diabetic supplies, miscellan. diabetic shoes , custom orthotics fenofibrate micronized 67 mg PO DAILY fesoterodine ER (Toviaz) 8 mg PO DAILY [genultimate lancets ] metformin 1,000 mg PO DAILY metoprolol succinate ER 100 mg PO DAILY omeprazole 20 mg PO DAILY rosuvastatin (Crestor) 10 mg PO DAILY triamcinolone acetonide 0.025% 1 appl topical DAILY valsartan-hydrochlorothiazide 160-25 mg 1 tab PO DAILY Do you need a note to return to daycare/school/sports/work: No HPI Comments Details: 09/11/24--Nimo is a 78-year-old female followed for OAB. The patient had her last visit on 09/13/23 for follow-up for OAB symptoms. At that time the patient was doing well on tolterodine 4 mg b.i.d. she reports no new complaints. Denies dysuria. Patient states that her insurance will not continue to fill the tolterodine 4 mg twice a day they will only fill it once a day. I will change her to Toviaz 8 mg daily follow-up in 12 weeks to re-evaluate urinary symptoms. 09/13/23--Nimo is a 78-year-old female followed for OAB. The patient had her last visit on 09/13/22 for follow-up for OAB symptoms. At that time the patient was doing well on tolterodine 4 mg b.i.d. she reports no new complaints. Denies dysuria. We will continue tolterodine anticholinergic therapy. 09/13/2022-- 6 month follow-up. She is a 77-year-old diabetic female. She is a nonsmoker. She is currently taking tolterodine 4 mg b.i.d. She is having no issues with this other than complaints of dry mouth. She is having no urinary incontinence episodes and remains dry during the night. She reports having a good appetite and no issues with constipation. She reports that she drinks adequate amounts of water on a daily basis. Urinalysis in the office today--UA-shows no sign of infection, bladder scan PVR is 0. PFSH Medical History Non-rheumatic aortic stenosis Heart murmur Venous insufficiency DVT (deep venous thrombosis) GERD (gastroesophageal reflux disease) Vitamin D deficiency Hyperlipidemia Bladder hypertonicity BEKAH (obstructive sleep apnea) Morbid obesity Essential hypertension Surgical History H/O colonoscopy History of shoulder surgery History of total knee replacement History of cholecystectomy History of bilateral cataract extraction History of carpal tunnel release of both wrists History of section Family History Mother Breast cancer Myocardial infarction Father Myocardial infarction Prostate cancer Social History Household Members Other:: , lives alone, 4 sons, Housing: House Are you a primary senior care specialist to a significant other at home: No Do you presently have visiting nurse or other home services: No Patient Tobacco Use Status: Never used Tobacco e-Cigarette/Vaping Use: Never Used Second Hand Smoke Exposure: No Advance Directives Date on File: 01/14/24 service: No Current occupational status: retired Current occupational exposures/hazards: No Cognitive needs: No Hearing needs: No Vision needs: Yes Review of Systems Const All systems reviewed & are unremarkable except as noted in HPI and below Reports no additional complaints Eyes Reports no additional complaints ENT Reports no additional complaints Card Reports no additional complaints Resp Reports no additional complaints GI Reports no additional complaints Reports as per HPI Musc Reports no additional complaints Skin/Breast Reports system reviewed and no additional complaints, except as documented Neuro Reports no additional complaints Psych Reports no additional complaints Endo Reports no additional complaints Jonathan/Lymph Reports no additional complaints Aller/Immun Reports no additional complaints Assessment & Plan Assessment & Plan (1) OAB (overactive bladder): Code(s): N32.81 - Overactive bladder Category: Medical (2) Urgency of micturition: Code(s): R39.15 - Urgency of urination Category: Medical Plan Toviaz 8 mg to replace Tolterodine 4 mg b.i.d. follow-up in 12 weeks to reassess urinary symptoms Medications: New fesoterodine ER (Toviaz) 8 mg PO DAILY 90 tabs 3RF Discontinued tolterodine ER Discontinued Reason: Doctor's Order 4 mg PO BID 90 days 180 caps 3RF Patient Instructions: The patient had an opportunity to ask questions regarding treatment plan. The patient expressed understanding and agreement with the above treatment plan. The patient is aware they should contact our office by phone for worsening of their current condition or the appearance of new symptoms. Compliance is encouraged with any medications and followup testing that is ordered. It is a privilege to be allowed the opportunity to participate in the urologic care of your patient. If you have any questions or concerns regarding treatment for the above conditions please do not hesitate to contact me. The office telephone contact is [phone]. This note is constructed in part using voice recognition software. While every effort has been made to ensure accuracy master certified rv technician errors may have been included. Yours sincerely, Yamileth Valladares MD Coding Level of Care Code Est Pt Level 4 (60807) Diagnoses OAB (overactive bladder) N32.81 Urgency of micturition R39.15
== END 2024-09-11 14:09 | disposition home or self-care (01) ==
LOC: HO.HUSH 13:39
PROVIDERS: PCP Internal Medicine; Visit Provider Urology
DX: N32.81 Overactive bladder (principal); R39.15 Urgency of urination
CPT/HCPCS: 99214

== ENCOUNTER → 2024-09-11 13:39 | Outpatient (BNVA) | payer MEDICARE, SELFPAY | PROVIDERS: PCP Internal Medicine; Visit Provider Urology | DX: N32.81 Overactive bladder (principal); R39.15 Urgency of urination | CPT/HCPCS: 99212 ==

== ENCOUNTER 2024-09-17 09:23 | Outpatient (AMB) | payer MEDICARE, SELFPAY ==
--- NOTE | 2024-09-17 09:29 | A.OFFVIS_ITS ---
Vital Signs 09/17/24 09:32 Height 5 ft Weight 193 lb BMI 37.7 Intake Visit Reasons: 2nd opinion for surgery Intake Note: 2nd opinion for vein procedure in [place]. Does not want procedure done with needles? Collect On Delivery Clerk Required: Yes Collect On Delivery Clerk Language: Maori Collect On Delivery Clerk Services: Collect On Delivery Clerk Present Collect On Delivery Clerk Name: [id number] Information Interpreted: clinical only Accompanied by: Self / Same As Patient Allergies No Known Allergies [No Known Allergies*] Allergy (Verified 09/17/24 09:34) HPI HPI 2nd opinion for surgery: Details: Meghan is presenting today for a second opinion. She is known to this office and has a hx of bilateral GSV ablations. She is Maori speaking and we utilized the video engineer and geologist, Kiana. The last office visit here was in 06/2022 for a follow up to left small saphenous RFA. She had some postprocedure phlebitis and discomfort. A follow up US was negative for DVT. She was advised to continue wearing compression socks and to follow up in 3m for a vein check; she did not follow up but [facility]2023 were there was ablation of the left GSV as well as tributaries below the knee on the left side. She states she did follow up with them. It is difficult, even with the engineer and geologist (whom had difficulties understanding the pt), to determine what the patient wanted. She continued to say she wanted a second opinion for surgery. She did endorse that she has some discoloration in the back of her right calf but denies any pain or swelling. [facility] Medical History Non-rheumatic aortic stenosis Heart murmur Venous insufficiency DVT (deep venous thrombosis) GERD (gastroesophageal reflux disease) Vitamin D deficiency Hyperlipidemia Bladder hypertonicity BEKAH (obstructive sleep apnea) Morbid obesity Essential hypertension Surgical History H/O colonoscopy History of shoulder surgery History of total knee replacement History of cholecystectomy History of bilateral cataract extraction History of carpal tunnel release of both wrists History of section Family History Mother Breast cancer Myocardial infarction Father Myocardial infarction Prostate cancer Social History Household Members Other:: , lives alone, 4 sons, Housing: House Are you a primary manager urgent care to a significant other at home: No Do you presently have visiting nurse or other home services: No Patient Tobacco Use Status: Never used Tobacco e-Cigarette/Vaping Use: Never Used Second Hand Smoke Exposure: No Advance Directives Date on File: 01/14/24 service: No Current occupational status: retired Current occupational exposures/hazards: No Cognitive needs: No Hearing needs: No Vision needs: Yes Review of Systems Const Reports as per HPI and Denies weakness ENT Reports Normal hearing present and Denies dizziness Card Reports as per HPI, Denies chest pain, Denies chest pain at rest, Denies chest pain with activity, Denies dyspnea and Denies dyspnea on exertion Resp Reports as per HPI, Denies cough, Denies dyspnea and Denies dyspnea on exertion GI Reports as per HPI, Denies abdominal pain, Denies nausea and Denies vomiting Musc Denies numbness Skin/Breast Reports as per HPI, Denies erythema and Denies wounds Neuro Reports Normal hearing present, Denies dizziness, Denies numbness, Denies Sensory deficit (Neuro) and Denies weakness Psych Reports no additional complaints Endo Reports no additional complaints Physical Exam Vital Signs: BMI result Body Mass Index 37.7 Const General: healthy appearing and no acute distress Orientation/consciousness: patient oriented x3 HEENT Head: Yes normal to inspection Ears: hearing grossly normal bilaterally Mouth: Normal oral and palatal mucosa present Resp Effort & Inspection: normal respiratory effort and able to speak in complete sentences Auscultation: clear to auscultation bilaterally Cardio Jugular venous distension: no JVD Rate: regular rate Rhythm: regular rhythm Heart sounds: S1 normal heart sound present and S2 normal heart sound present Bruits: no abdominal aortic bruits, no carotid bruits, no femoral bruits and no renal bruits Peripheral pulses: Peripheral pulses 2+ throughout GI Inspection: Yes normal to inspection Palpation (GI): No Abdominal aortic bruit present Skin General skin exam: no rashes or lesions noted Wounds: no wounds Hair: normal Neuro General: patient oriented x3 Cranial nerves: Yes Normal hearing present Cognition (Neuro): normal cognition Gait exam (Neuro): Normal gait present Motor exam (neuro): 5/5 motor strength present throughout Sensory Exam: No Sensory deficit (Neuro) Extrem Other: Bilateral lower extremities: trace peripheral edema noted. Palpable DP pulses. Scattered telangiectases noted. No varicosities noted. General: Yes normal to inspection, Yes full ROM, Yes capillary refill normal and Yes normal gait Assessment & Plan Assessment & Plan (1) Varicose veins of left lower extremity with inflammation: Comment: 04/19/2023 - left small saphenous vein radiofrequency ablation Code(s): I83.12 - Varicose veins of left lower extremity with inflammation Category: Medical Plan: Meghan is presenting today for a second opinion. She is Maori-speaking only and we utilized [employer] for a video engineer and geologist. We were unable, after asking many times, to find out what second opinion the patient was looking for. She has had extensive vein procedures done, here and more recently [facility]. The pt continues to endorse concerns for some discoloration on the back of her left lower leg. She denies any pain or swelling. We attempted to discuss that discoloration can last for extended periods of time after procedures and sometimes it does not go away at all; the pt had difficulty in understanding this. We discussed that there are no other procedures that we can perform on her; we do not perform cosmetic work for varicose veins here and she has no complaints for medical treatment. She has had bilateral GSV ablations as well as SSV ablations. We discussed the the [facility] could do other procedures if that is what she is looking for. We will not need to follow up with her unless she has other vascular concerns. Thank you for allowing us to participate in the patient's care. If there are any questions or concerns, please do not hesitate to reach out to us. Coding Level of Care Code Est Pt Level 4 (01178) Diagnoses Varicose veins of left lower extremity with inflammation I83.12
[2024-09-17 09:32] VITALS: BMI 37.7
== END 2024-09-17 10:01 | disposition home or self-care (01) ==
PROVIDERS: PCP Internal Medicine; Visit Provider Physician Assistant Surgical
DX: I83.12 Varicose veins of left lower extremity with inflammation (principal)
CPT/HCPCS: 99214

== ENCOUNTER → 2024-09-17 09:23 | Outpatient (BNVA) | payer MEDICARE, SELFPAY | PROVIDERS: PCP Internal Medicine; Visit Provider Physician Assistant Surgical | DX: I83.12 Varicose veins of left lower extremity with inflammation (principal) | CPT/HCPCS: 99212 ==

== ENCOUNTER 2024-09-23 20:46 | Emergency (ER) | payer MEDICARE, SELFPAY ==
--- NOTE | ~2024-09-23 | XR_ITS ---
CLINICAL HISTORY: low back pain 3 views lumbar spine Comparison: None Findings: Dextrocurvature present at the lumbar spine. This mildly limits evaluation, with limited visualization of the lower lumbar vertebral bodies on the lateral and L5-S1 spot images. No significant lumbar spondylolisthesis appreciated. Multilevel degenerative endplate changes and bilateral degenerative facet arthropathy present at the lumbar spine. Surgical clips are present over the right upper abdominal quadrant, possibly consistent with prior cholecystectomy. IMPRESSION: 1. Mildly limited examination as described above. No acute fracture or dislocation injury identified at the lumbar spine. This document has been electronically signed by: Jaime Bonner MD on 09/23/2024 23:22:57
[2024-09-23 20:47] VITALS: BP 166/68; PULSE 88; RESP 16; TEMP 36.1; BMI 33.8
--- NOTE | 2024-09-23 20:49 | ED.BACK ---
HPI - Back Pain/Injury General Chief Complaint: Back Pain/Injury Stated Complaint: back pain, no injury Time Seen by Provider: 09/24/24 00:29 Source: patient, family (son acting as firestop/containment worker), RN notes reviewed and old records reviewed Mode of arrival: ambulatory Limitations: no limitations History of Present Illness ED Provider: Terrance HPI Narrative: 79-year-old female with a past medical history significant for [id number] diabetes arthritis, bilateral knee replacement, obesity, hypertension presents for evaluation of lower back pain. The patient reports that she has chronic aches and pains all over her body including her back. Since noon today she has had worsening lower back pain that radiates down both legs. Next denies any heavy lifting, twisting injuries or falls. She reports a similar episode a few years ago and she received injections in her hips which help with her pain Denies any numbness, tingling Denies any bladder or bowel incontinence Denies fevers and chills No other complaints or concerns at this time Related Data Home Medications ?Medication ?Instructions ?Recorded ?Confirmed genultimate lancets 04/20/21 09/11/24 albuterol sulfate 90 mcg/actuation 2 puff inhalation Q6H PRN 08/04/24 09/11/24 aerosol inhaler Previous Rx's ?Medication ?Instructions ?Recorded blood-glucose meter (OneTouch #1 ea 02/24/21 Ultra2 Meter) blood sugar diagnostic #100 ea 04/20/21 (GenUltimate Test Strip) blood sugar diagnostic (OneTouch #100 ea 04/20/21 Ultra Test strips) triamcinolone acetonide 0.025 % 1 appl topical DAILY #80 grams 08/13/22 topical cream ciclopirox 0.77 % topical cream 1 appl topical BID 4 weeks #90 12/11/22 (Ciclodan) grams diabetic supplies, [employer]. #2 ea 04/22/23 fenofibrate micronized 67 mg 67 mg PO DAILY #90 caps 07/01/24 capsule metformin 1,000 mg tablet 1,000 mg PO DAILY #90 tabs 07/01/24 metoprolol succinate 100 mg 100 mg PO DAILY #90 tabs 07/01/24 tablet,extended release 24 hr omeprazole 20 mg capsule,delayed 20 mg PO DAILY #90 caps 07/01/24 release rosuvastatin 10 mg tablet (Crestor) 10 mg PO DAILY #90 tabs 07/01/24 valsartan 160 1 tab PO DAILY #90 tabs 07/01/24 mg-hydrochlorothiazide 25 mg tablet diabetic supplies, miscellan. #2 ea 07/08/24 fesoterodine 8 mg tablet,extended 8 mg PO DAILY #90 tabs 09/11/24 release 24 hr (Toviaz) dexamethasone 4 mg tablet 4 mg PO BID #6 tabs 09/24/24 tramadol 50 mg tablet 50 mg PO Q8H PRN severe pain 09/24/24 (scale score 7-10) #9 tabs Allergies Allergy/AdvReac Type Severity Reaction Status Date / Time No Known Allergies Allergy Verified 09/23/24 20:50 [No Known Allergies*] Review of Systems Constitutional: Constitutional: Reports body ache(s), Denies chills, Denies fever(s) and Denies headache(s) ENT: Denies dizziness, Denies dry mouth and Denies headache(s) Cardiovascular: Cardiovascular: Denies chest pain and Denies dyspnea Respiratory: Respiratory: Denies cough and Denies dyspnea Gastrointestinal: Gastrointestinal: Denies abdominal pain and Denies nausea Genitourinary: Genitourinary: Denies hematuria, Denies dysuria and Denies urinary incontinence Musculoskeletal: Musculoskeletal: Reports back pain and Reports radiating pain into limb Integumentary/Breasts: Skin/Breast: Denies rash Neurologic: Denies dizziness and Denies headache(s) [facility] Past Medical History Medical History Non-rheumatic aortic stenosis Heart murmur Venous insufficiency DVT (deep venous thrombosis) GERD (gastroesophageal reflux disease) Vitamin D deficiency Hyperlipidemia Bladder hypertonicity BEKAH (obstructive sleep apnea) Morbid obesity Essential hypertension Surgical History H/O colonoscopy History of shoulder surgery History of total knee replacement History of cholecystectomy History of bilateral cataract extraction History of carpal tunnel release of both wrists History of section Family History Family History Mother Breast cancer Myocardial infarction Father Myocardial infarction Prostate cancer Social History Social History Household Members Other:: , lives alone, 4 sons, Housing: House Are you a primary patient care secretary to a significant other at home: No Do you presently have visiting nurse or other home services: No Patient Tobacco Use Status: Never used Tobacco e-Cigarette/Vaping Use: Never Used Second Hand Smoke Exposure: No Advance Directives: Yes Advance Directives on File: Yes Advance Directives Date on File: 01/14/24 Do you have a plan to hurt others: No Plan service: No Current occupational status: retired Current occupational exposures/hazards: No Cognitive needs: No Hearing needs: No Vision needs: Yes Physical Exam Vital Signs: Vital Signs: Last Vital Signs Temp 98.3 F 09/24/24 00:47 Pulse 73 09/24/24 00:47 Resp 16 09/24/24 00:47 BP 164/57 H 09/24/24 00:47 Pulse Ox 97 09/24/24 00:47 O2 Del Method Room Air 09/24/24 00:47 BMI result Body Mass Index 33.8 Const: General: healthy appearing, comfortable, no acute distress, alert and awake Nutritional Appearance: well nourished Orientation/consciousness: patient oriented x3 HEENT: Head: Yes normocephalic and Yes atraumatic Throat: Yes posterior oropharynx normal Eyes: Eyelids: Yes eyelids normal Conjunctivae: conjunctivae normal Sclerae: sclerae normal Corneas: corneas normal Pupils: Equal, round and reactive pupils present EOM: EOMs intact bilaterally Neck: Neck: Yes full ROM Resp: Effort & Inspection: normal respiratory effort, able to speak in complete sentences and not labored Cardio: Rate: regular rate Rhythm: regular rhythm GI: Inspection: No distended Palpation (GI): Soft to palpation, not firm, nontender, no guarding and not rigid Back/Spine/Pelvis: Other: Tenderness across the lumbar sacral region. No step-offs or deformities. No lumbar vertebral tenderness. Straight leg raise positive bilaterally. Skin: General skin exam: elasticity normal Neuro: General: patient oriented x3 Cranial nerves: Yes Equal, round and reactive pupils present and Yes Bilaterally intact EOM present Cognition (Neuro): normal cognition Motor exam (neuro): 5/5 motor strength present throughout Course Course Course Narrative: This is a Rapid Medical Exam performed in triage by Christy Pouliot PA-C. Full HPI, ROS and PE to be performed by primary ED provider. 79 yo Indonesian speaking female F w/PMHx OAB, DM, HTN, obesity, HLD presenting to the ED c/o low back pain radiating to b/l LE since 12- noon today. denies injury/fall, dysuria, hematuria, numbness, incontinence/retention PE: ambulating w/ walker, no midline spinous ttp. No reproducible ttp. No rash Plan: XR, pain control Medications Administered Discontinued Medications Generic Name Dose Route Start Last Admin Trade Name Gerry PRN Reason Stop Dose Admin Dexamethasone 4 mg 09/24/24 00:41 09/24/24 00:50 Dexamethasone 4 Mg Tablet PO 09/24/24 00:42 4 mg ONCE ONE Administration Tramadol HCl 50 mg 09/24/24 00:42 09/24/24 00:50 Tramadol Hcl 50 Mg Tablet PO 09/24/24 00:43 50 mg ONCE ONE Administration Medical Decision Making Medical Decision Making MDM Narrative: Back pain. Her pain radiates down her lower legs. She was a longstanding history of arthritis and degenerative joint disease. Denies any specific injury or trauma was ordered from triage. This does not show any acute traumatic injuries I have a very low suspicion for compression fracture. Her physical exam is reassuring, she was no bladder or bowel incontinence, strength is intact. She was able to ambulate but uses a walker due to her pain. Patellar his are intact bilaterally. She was afebrile, there is no abdominal pain or GI symptoms. No warning signs for cauda equina syndrome Differential Diagnosis Differential Diagnoses: The differential diagnosis associated with the presentation includes Back pain Radiculopathy Sciatica Muscle strain Compression fracture Independent Interpretation I performed an independent interpretation of an: Plain X-Ray Interpretation: Agree with Radiology interpretation Radiology Impression Discussion of test interpretation with radiology: I have reviewed the radiologist's reading. Radiologist Impression: Findings: Dextrocurvature present at the lumbar spine. This mildly limits evaluation, with limited visualization of the lower lumbar vertebral bodies on the lateral and L5-S1 spot images. No significant lumbar spondylolisthesis appreciated. Multilevel degenerative endplate changes and bilateral degenerative facet arthropathy present at the lumbar spine. Surgical clips are present over the right upper abdominal quadrant, possibly consistent with prior cholecystectomy. IMPRESSION: 1. Mildly limited examination as described above. No acute fracture or dislocation injury identified at the lumbar spine. This document has been electronically signed by: Jaime Bonner MD on 09/23/2024 23:22:57 External Record Review External record reviewed: Inpatient record, Office record, Outpatient record, Prior outpatient labs and Prior outpatient radiology Prescription Management I considered prescription management with: Pain Medication Chronic Conditions Patient?s care impacted by: Diabetes and Hypertension Discharge Plan Discharge Clinical Impression: Acute bilateral low back pain Patient Disposition: Home, Self-Care Instructions: Acute Low Back Pain (ED) Additional Instructions: Your x-ray showed degenerative changes but no acute fractures of your lower back Your symptoms are consistent with a condition called sciatica I recommend that you take dexamethasone twice daily for the next 3 days You may continue to Tylenol for pain. You may use tramadol for more severe, breakthrough pain This may make you drowsy, do not drink alcohol or drive after taking it Follow-up with your primary doctor, return for new or worsening symptoms Prescriptions: New dexamethasone 4 mg tablet 4 mg PO BID Qty: 6 0RF tramadol 50 mg tablet 50 mg PO Q8H PRN (Reason: severe pain (scale score 7-10)) Qty: 9 0RF No Action (DME) diabetic supplies, miscellan. [facility] .Route Qty: 2 0RF Rx Instructions: extra depth diabetic shoes with 3 pairs custom heat molded innersoles (DME) diabetic supplies, [employer]ell[employer]. [facility] See [facility] Instructions .Route Qty: 2 3RF Rx Instructions: diabetic shoes , custom orthotics (DME) blood-glucose meter [OneTouch Ultra2 Meter] [facility] See [facility] Instructions .Route Qty: 1 0RF Rx Instructions: As directed triamcinolone acetonide 0.025 % cream 1 appl topical DAILY Qty: 80 2RF (DME) genultimate lancets 0 .Route .MEDSUPPLY (DME) GenUltimate Test Strip Strip See Rx Instructions .Route Qty: 100 0RF Rx Instructions: As directed (DME) OneTouch Ultra Test Strip See Rx Instructions .Route Qty: 100 4RF Rx Instructions: qd ciclopirox [Ciclodan] 0.77 % cream 1 appl topical BID 28 Days Qty: 90 1RF fesoterodine [Toviaz] 8 mg tablet extended release 24 hr 8 mg PO DAILY Qty: 90 3RF albuterol sulfate 90 mcg/actuation HFA aerosol inhaler 2 puff inhalation Q6H PRN metformin 1,000 mg tablet 1,000 mg PO DAILY Qty: 90 3RF metoprolol succinate 100 mg tablet extended release 24 hr 100 mg PO DAILY Qty: 90 3RF rosuvastatin [Crestor] 10 mg tablet 10 mg PO DAILY Qty: 90 3RF valsartan-hydrochlorothiazide 160-25 mg tablet 1 tab PO DAILY Qty: 90 3RF omeprazole 20 mg capsule,delayed release(DR/EC) 20 mg PO DAILY Qty: 90 3RF fenofibrate micronized 67 mg capsule 67 mg PO DAILY Qty: 90 3RF Print Language: Indonesian
[2024-09-24 00:47] VITALS: BP 164/57; PULSE 73; RESP 16; TEMP 36.8; O2SAT 97
[2024-09-24 00:49] VITALS: BP 164/57; PULSE 73; RESP 16; TEMP 36.8; O2SAT 97
[2024-09-24] MEDS: traMADoL HCL 50 MG TABLET PO (00:50)
[2024-09-24] MEDS: dexAMETHasone 4 MG TABLET PO (00:50)
== END 2024-09-24 00:49 | disposition home or self-care (01) ==
PROVIDERS: Emergency Provider Emergency Medicine; PCP Internal Medicine
DX: M54.50 Low back pain, unspecified (principal); E11.9 Type 2 diabetes mellitus without complications; I10 Essential (primary) hypertension
CPT/HCPCS: 72100; 99283; J8540

== ENCOUNTER → 2024-09-23 20:50 | Outpatient (BNV) | payer MEDICARE, SELFPAY | PROVIDERS: PCP Internal Medicine; Visit Provider Radiology Diagnostic Radiology | DX: M54.50 Low back pain, unspecified (principal) | CPT/HCPCS: 72100 ==

== ENCOUNTER 2024-09-24 12:12 | Outpatient (AMB) | payer MEDICARE, SELFPAY ==
[2024-09-24 12:15] VITALS: BP 126/68; PULSE 82; RESP 20; TEMP 37.3; O2SAT 96; BMI 33.7
--- NOTE | 2024-09-24 12:15 | A.OFFPC_ITS ---
Vital Signs 09/24/24 12:15 Height 5 ft 2 in Weight 184 lb BMI 33.7 BP 126/68 Blood Pressure Location Rt brachial Position Sitting Respiration 20 Pulse 82 Pulse Source Pulse Oximeter Temp 99.1 F Temp Source Oral Pulse Oximetry (%) 96 Oxygen Delivery Method Room Air Intake Visit Reasons: back pain/ED follow Intake Note: Pt is here today for ER follow up visit. Pt states that she has been having lower back pain and abdominal bloating. pt states that she was told at the ER that she should have MRI done. Allergies No Known Allergies [No Known Allergies*] Allergy (Verified 09/24/24 12:18) Medication List - Last Reconciled 09/24/24 by Saige Salamanca MD albuterol sulfate 90 mcg/actuation 2 puffs inhalation Q6H PRN blood sugar diagnostic (GenUltimate Test Strip) As directed blood sugar diagnostic (OneTouch Ultra Test strips) qd blood-glucose meter (OneTouch Ultra2 Meter) As directed ciclopirox 0.77% (Ciclodan) 1 appl topical BID 4 weeks dexamethasone 4 mg PO BID diabetic supplies, miscellan. extra depth diabetic shoes with 3 pairs custom heat molded innersoles diabetic supplies, miscellan. diabetic shoes , custom orthotics fenofibrate micronized 67 mg PO DAILY fesoterodine ER (Toviaz) 8 mg PO DAILY [genultimate lancets ] metformin 1,000 mg PO DAILY metoprolol succinate ER 100 mg PO DAILY omeprazole 20 mg PO DAILY rosuvastatin (Crestor) 10 mg PO DAILY tramadol 50 mg PO Q8H PRN triamcinolone acetonide 0.025% 1 appl topical DAILY valsartan-hydrochlorothiazide 160-25 mg 1 tab PO DAILY Tobacco use date assessed: 09/24/24 Fall risk assessment: 1 Fall in past year Last assessed Fall Risk: 09/24/24 Dental Screening Dental Screen Date: 09/24/24 Did you have a dental visit in the last 12 months?: No Did you have a dental problem in the last 6 months where you did not have access to dental care?: No Was dental information given to patient?: Patient declined HPI back pain/ED follow HPI Details Patient presents for the follow-up of ER visit. She went to the hospital with a complaint of lower back pain radiating to lower extremities for 1 day. Lumbar x-ray was consistent with degenerative changes. patient was started on dexamethasone and tramadol and is feeling significantly better today she has been ambulating with a cane. Patient denies weakness or numbness in extremities, change in bowel or bladder function. FOR[facility], LATER [facility] Medical History Non-rheumatic aortic stenosis Heart murmur Venous insufficiency DVT (deep venous thrombosis) GERD (gastroesophageal reflux disease) Vitamin D deficiency Hyperlipidemia Bladder hypertonicity BEKAH (obstructive sleep apnea) Morbid obesity Essential hypertension Surgical History H/O colonoscopy History of shoulder surgery History of total knee replacement History of cholecystectomy History of bilateral cataract extraction History of carpal tunnel release of both wrists History of section Family History Mother Breast cancer Myocardial infarction Father Myocardial infarction Prostate cancer Social History Household Members Other:: , lives alone, 4 sons, Housing: House Are you a primary child care director to a significant other at home: No Do you presently have visiting nurse or other home services: No Patient Tobacco Use Status: Never used Tobacco e-Cigarette/Vaping Use: Never Used Second Hand Smoke Exposure: No Advance Directives Date on File: 01/14/24 service: No Current occupational status: retired Current occupational exposures/hazards: No Cognitive needs: No Hearing needs: No Vision needs: Yes Questionnaire Thrive Questionnaire Date Thrive assessed: 08/13/22 JEYSON-7 AMB Questionnaire JEYSON-7 Date JEYSON - 7 assessed: 08/13/22 Source: Developed by Drs. Prudencio Ferreira, Micki Krishnan, Eric Jones and colleagues, with an educational francois from [employer]. Review of Systems Const All systems reviewed & are unremarkable except as noted in HPI and below Eyes Reports no additional complaints ENT Reports no additional complaints Card Reports no additional complaints Resp Reports no additional complaints GI Reports no additional complaints Reports no additional complaints Physical exam (Primary Care) Vital Signs: Last Vital Signs Temp 99.1 F 09/24/24 12:15 Pulse 82 09/24/24 12:15 Resp 20 09/24/24 12:15 BP 126/68 09/24/24 12:15 Pulse Ox 96 09/24/24 12:15 Oxygen Delivery Method Room Air 09/24/24 12:15 BMI result Body Mass Index 33.7 Tobacco/Smoking Status: Tobacco use Status Tobacco use date assessed 09/24/24 09/24/24 12:21 Patient Tobacco Use Status Never used Tobacco 09/24/24 12:21 e-Cigarette/Vaping Use Never Used 09/24/24 12:21 Thrive Assessment: Date of Thrive Assessment Date Thrive assessed 08/13/22 09/24/24 12:21 Const General: no acute distress HENMT Head: Yes normal to inspection Ears: hearing grossly normal bilaterally Eyes General: appearance normal, both eyes and all related structures Resp Effort & Inspection: normal respiratory effort Auscultation: clear to auscultation bilaterally Cardio Rhythm: regular rhythm Heart sounds: S1 normal heart sound present and S2 normal heart sound present Back/Spine/Pelvis Other: There is decreased range of motion lumbar spine, paraspinal tenderness bilaterally no spinal tenderness. Straight leg rising 90 degrees bilaterally motor strength 5/5 bilateral deep tendon reflexes 1+ bilaterally Immunizations pneumoc 20-smith conj-dip cr(PF) 0.5 mL IM syringe Performing Provider: Saige Salamanca MD Performing Location: [facility] Administered by: ALEX Block on 09/24/24 12:53 Dose Route Admin Location Dispensed Lot Number Expiration Date NDC Barrel Loader 0.5 mL IM Left Deltoid 0.5 mL [id number] 07/31/25 0600-8899-58 [employer] VIS Given Date VIS Provided VIS Publication Date 09/24/24 Single Vaccine 21 Eligibility Eligibility Date Funding Source Not [facility] Eligible 09/24/24 Private Coding Level of Care Code Est Pt Level 3 (39184) Diagnoses Degenerative disc disease, lumbar M51.36 Type 2 diabetes mellitus with unspecified complications E11.8 Assessment & Plan Assessment & Plan (1) Degenerative disc disease, lumbar: Code(s): M51.36 - Other intervertebral disc degeneration, lumbar region Category: Medical Plan: Patient was advised to continue medication, she will be referred to physical therapy. (2) Type 2 diabetes mellitus with unspecified complications: Code(s): E11.8 - Type 2 diabetes mellitus with unspecified complications Category: Medical Plan: Continue current medications and ADA diet Orders: Orders PT Evaluation and Treatment Today M51.36 - Other intervertebral disc degeneration, lumbar region Pneumococcal 20 Immunization Today Z23 - Encounter for immunization
== END 2024-09-24 13:28 | disposition home or self-care (01) ==
LOC: HO.HMCC 12:12
PROVIDERS: PCP Internal Medicine; Visit Provider Internal Medicine
DX: M51.369 Other intervertebral disc degeneration, lumbar region without mention of lumbar back pain or lower extremity pain (principal); E11.8 Type 2 diabetes mellitus with unspecified complications; Z23 Encounter for immunization

== ENCOUNTER → 2024-09-24 12:12 | Outpatient (BNVA) | payer MEDICARE, SELFPAY | PROVIDERS: PCP Internal Medicine; Visit Provider Internal Medicine | DX: M51.360 Other intervertebral disc degeneration, lumbar region with discogenic back pain only (principal); R14.0 Abdominal distension (gaseous); E11.8 Type 2 diabetes mellitus with unspecified complications; Z23 Encounter for immunization | CPT/HCPCS: 90471; 90677; 99212 ==

== ENCOUNTER 2024-12-03 10:12 | Outpatient (AMB) | payer MEDICARE, SELFPAY ==
--- NOTE | 2024-12-03 10:49 | MHC.OFFVIS ---
Intake Visit Reasons: 12w/med review Intake Note: Patient presents today for a 12w/med review Urology medications: Fesoterodine Blood thinners: none Program Coordinator For Residence [employer] Required: Yes Program Coordinator For [employer]idence [employer] Name: [id number] Information Interpreted: non-clinical & clinical Accompanied by: Self / Same As Patient Allergies No Known Allergies (No Known Allergies*) Allergy (Verified 12/03/24 10:53) Do you need a note to return to daycare/school/sports/work: No HPI Comments Details: 09/11/24--Nimo is a 78-year-old female followed for OAB. The patient had her last visit on 09/13/23 for follow-up for OAB symptoms. At that time the patient was doing well on tolterodine 4 mg b.i.d. she reports no new complaints. Denies dysuria. Patient states that her insurance will not continue to fill the tolterodine 4 mg twice a day they will only fill it once a day. I will change her to Toviaz 8 mg daily follow-up in 12 weeks to re-evaluate urinary symptoms. 09/13/23--Nimo is a 78-year-old female followed for OAB. The patient had her last visit on 09/13/22 for follow-up for OAB symptoms. At that time the patient was doing well on tolterodine 4 mg b.i.d. she reports no new complaints. Denies dysuria. We will continue tolterodine anticholinergic therapy. 09/13/2022-- 6 month follow-up. She is a 77-year-old diabetic female. She is a nonsmoker. She is currently taking tolterodine 4 mg b.i.d. She is having no issues with this other than complaints of dry mouth. She is having no urinary incontinence episodes and remains dry during the night. She reports having a good appetite and no issues with constipation. She reports that she drinks adequate amounts of water on a daily basis. Urinalysis in the office today--UA-shows no sign of infection, bladder scan PVR is 0. PFSH Medical History Non-rheumatic aortic stenosis Heart murmur Venous insufficiency DVT (deep venous thrombosis) GERD (gastroesophageal reflux disease) Vitamin D deficiency Hyperlipidemia Bladder hypertonicity BEKAH (obstructive sleep apnea) Morbid obesity Essential hypertension Surgical History H/O colonoscopy History of shoulder surgery History of total knee replacement History of cholecystectomy History of bilateral cataract extraction History of carpal tunnel release of both wrists History of section Family History Mother Breast cancer Myocardial infarction Father Myocardial infarction Prostate cancer Social History Household Members Other:: , lives alone, 4 sons, Housing: House Are you a primary college and career counselor to a significant other at home: No Do you presently have visiting nurse or other home services: No Patient Tobacco Use Status: Never used Tobacco e-Cigarette/Vaping Use: Never Used Second Hand Smoke Exposure: No Advance Directives Date on File: 01/14/24 service: No Current occupational status: retired Current occupational exposures/hazards: No Cognitive needs: No Hearing needs: No Vision needs: Yes Review of Systems Const All systems reviewed & are unremarkable except as noted in HPI and below Reports no additional complaints Eyes Reports no additional complaints ENT Reports no additional complaints Card Reports no additional complaints Resp Reports no additional complaints GI Reports no additional complaints Reports as per HPI Musc Reports no additional complaints Skin/Breast Reports system reviewed and no additional complaints, except as documented Neuro Reports no additional complaints Psych Reports no additional complaints Endo Reports no additional complaints Jonathan/Lymph Reports no additional complaints Aller/Immun Reports no additional complaints Results AMB Urinalysis, Automated UA Leukoctes 0 Elsie/uL Last Edit by TAJ Barros on 12/03/24 11:35 UA Nitrite Negative Last Edit by TAJ Barros on 12/03/24 11:35 UA Urobilinogen 3.5 mg/dL Last Edit by TAJ Barros on 12/03/24 11:35 UA Protein 0 mg/dL Last Edit by TAJ Barros on 12/03/24 11:35 UA pH 6.0 Last Edit by TAJ Barros on 12/03/24 11:35 UA Blood 0 Naun/uL Last Edit by TAJ Barros on 12/03/24 11:35 UA Specific [place] 1.010 Last Edit by TAJ Barros on 12/03/24 11:35 UA Ketone Negative Last Edit by TAJ Barros on 12/03/24 11:35 UA Bilirubin 0 mg/dL Last Edit by TAJ Barros on 12/03/24 11:35 UA Glucose 0 mg/dL Last Edit by TAJ Barros on 12/03/24 11:35 AMB Urinalysis, Automated UA Leukoctes 0 Elsie/uL Last Edit by Joann Ng on 12/03/24 16:28 UA Nitrite Negative Last Edit by Joann Ng on 12/03/24 16:28 UA Urobilinogen 3.5 mg/dL Last Edit by Joann Ng on 12/03/24 16:28 UA Protein 0 mg/dL Last Edit by Joann Ng on 12/03/24 16:28 UA pH 6.0 Last Edit by Joann Ng on 12/03/24 16:28 UA Blood 0 Naun/uL Last Edit by Joann Ng on 12/03/24 16:28 UA Specific [place] 1.010 Last Edit by Joann Ng on 12/03/24 16:28 UA Ketone Negative Last Edit by Joann Ng on 12/03/24 16:28 UA Bilirubin 0 mg/dL Last Edit by Joann Ng on 12/03/24 16:28 UA Glucose 0 mg/dL Last Edit by Joann Ng on 12/03/24 16:28 Results Reviewed Results Reviewed: Laboratory Last Values Urine pH (Auto) 6.0 12/03/24 11:34 Specific [place] (Auto) 1.010 12/03/24 11:34 Urine Protein (Auto) 0 mg/dL 12/03/24 11:34 Glucose (UA)(Auto) 0 mg/dL 12/03/24 11:34 Urine Ketones (Auto) Negative 12/03/24 11:34 Urine Blood (Auto) 0 Naun/uL 12/03/24 11:34 Urine Nitrite (Auto) Negative 12/03/24 11:34 Urine Bilirubin (Auto) 0 mg/dL 12/03/24 11:34 Urine Urobilinogen (Auto) 3.5 mg/dL 12/03/24 11:34 Leukocyte Esterase (Auto) 0 Elsie/uL 12/03/24 11:34 Assessment & Plan Assessment & Plan (1) Umbilical hernia: Code(s): K42.9 - Umbilical hernia without obstruction or gangrene Category: Medical (2) OAB (overactive bladder): Code(s): N32.81 - Overactive bladder Category: Medical (3) Urgency of micturition: Code(s): R39.15 - Urgency of urination Category: Medical Plan Toviaz 8 mg to replace Tolterodine 4 mg b.i.d. follow-up in 12 weeks to reassess urinary symptoms Orders: Orders AMB Urinalysis Automated Today K42.9 - Umbilical hernia without obstruction or gangrene, N32.81 - Overactive bladder, R39.15 - Urgency of urination AMB Urinalysis Automated Today Z13.9 - Encounter for screening, unspecified Referrals General Surgery Referral K42.9 - Umbilical hernia without obstruction or gangrene Medications: Refilled fesoterodine ER (Toviaz) 8 mg PO DAILY 90 tabs 3RF Patient Instructions: The patient had an opportunity to ask questions regarding treatment plan. The patient expressed understanding and agreement with the above treatment plan. The patient is aware they should contact our office by phone for worsening of their current condition or the appearance of new symptoms. Compliance is encouraged with any medications and followup testing that is ordered. It is a privilege to be allowed the opportunity to participate in the urologic care of your patient. If you have any questions or concerns regarding treatment for the above conditions please do not hesitate to contact me. The office telephone contact is [phone]. This note is constructed in part using voice recognition software. While every effort has been made to ensure accuracy locomotive driver errors may have been included. Yours sincerely, Yamileth Valladares MD Coding Diagnoses Umbilical hernia K42.9 OAB (overactive bladder) N32.81 Urgency of micturition R39.15
== END 2024-12-03 11:13 | disposition home or self-care (01) ==
LOC: HO.HUSH 10:12
PROVIDERS: PCP Internal Medicine; Visit Provider Urology
DX: K42.9 Umbilical hernia without obstruction or gangrene (principal); R39.15 Urgency of urination; N32.81 Overactive bladder; Z13.9 Encounter for screening, unspecified

== ENCOUNTER → 2024-12-03 10:12 | Outpatient (BNVA) | payer MEDICARE, SELFPAY | PROVIDERS: PCP Internal Medicine; Visit Provider Urology | DX: K42.9 Umbilical hernia without obstruction or gangrene (principal); N32.81 Overactive bladder; R39.15 Urgency of urination | CPT/HCPCS: 81003; 99212 ==

== ENCOUNTER 2024-12-07 07:39 | Outpatient (REF) | payer MEDICARE, SELFPAY ==
[2024-12-07 10:47] LABS: MANUAL DIFF FLAG NO
[2024-12-07 11:01] LABS: Hematocrit 34.3 % (37.0-47.0); Hemoglobin 11.3 g/dl (12.0-16.0); Imm Gran Abs Auto 0.03 X10*3/uL (0.00-0.03); Imm Gran Pct Auto 0.5 % (0.0-0.4); Lymphocytes Absolute Auto 1.9 X10*3/uL (1.2-4.9); Mean Corpuscular HGB Conc 32.9 g/dl (31.0-35.0); Mean Corpuscular Hemoglobin 30.7 pg (27.0-33.0); Mean Corpuscular Volume 93.2 fL (80.0-98.0); NRBC Abs Auto 0.000 X10*3/uL (0.0-0.012); NRBC Pct Auto 0.0 /100WBC (0.0-0.2); Platelet Count 147 X10*3/uL (160-400); Red Blood Count 3.68 X10*6/uL (4.20-5.50); White Blood Count 6.2 X10*3/uL (4.8-10.8)
[2024-12-07 11:08] LABS: Hemoglobin A1C 147.3250 umol/L; Total Hemoglobin (HGBA1C) 3120.8054 umol/L
[2024-12-07 12:04] LABS: Alanine Aminotransferase 18 U/L (0-31); Albumin Level 4.5 g/dL (3.5-5.0); Alkaline Phosphatase 59 U/L (39-117); Anion Gap 12 (12-20); Aspartate Amino Transferase 23 U/L (5-31); Blood Urea Nitrogen 24 mg/dL (9-16); Calcium 9.6 mg/dL (8.4-10.2); Carbon Dioxide 27 mmol/L (22-29); Chloride 105 mmol/L (96-108); Cholesterol 125 mg/dL (<200); Estimated Glomerular Filt Rate 53; HDL Cholesterol 36 mg/dL (>40); Potassium 4.8 mmol/L (3.3-5.1); Sodium 139 mmol/L (135-145); Total Protein 6.6 g/dL (6.5-8.0); Triglycerides 130 mg/dL (<150)
== END 2024-12-07 07:40 | disposition home or self-care (01) ==
LOC: HO.HMGCLDS 07:39
PROVIDERS: PCP Internal Medicine; Visit Provider Internal Medicine
DX: E11.8 Type 2 diabetes mellitus with unspecified complications (principal); E78.5 Hyperlipidemia, unspecified; E55.9 Vitamin D deficiency, unspecified; E66.01 Morbid (severe) obesity due to excess calories; I10 Essential (primary) hypertension
CPT/HCPCS: 36415; 80053; 80061; 83036; 85025

== ENCOUNTER 2024-12-09 12:48 | Outpatient (AMB) | payer MEDICARE, SELFPAY ==
[2024-12-09 12:53] VITALS: BP 124/64; PULSE 95; RESP 20; TEMP 36.8; O2SAT 97; BMI 33.5
--- NOTE | 2024-12-09 12:53 | A.OFFPC_ITS ---
Vital Signs 12/09/24 12:53 Height 5 ft 2 in Weight 183 lb BMI 33.5 BP 124/64 Blood Pressure Location Lt brachial Position Sitting Respiration 20 Pulse 95 Pulse Source Pulse Oximeter Temp 98.3 F Temp Source Oral Pulse Oximetry (%) 97 Oxygen Delivery Method Room Air Intake Visit Reasons: 6m follow up Intake Note: Pt is here today for 6 months follow up visit. Allergies No Known Allergies (No Known Allergies*) Allergy (Verified 12/09/24 12:56) Tobacco use date assessed: 12/09/24 Fall risk assessment: No Falls in past year Last assessed Fall Risk: 12/09/24 Dental Screening Dental Screen Date: 09/24/24 HPI 6m follow up HPI Details Patient presents for the follow-up of type 2 diabetes hypertension hyperlipidemia stable on current medications. She started physical therapy for chronic lower back pain sciatica and spinal stenosis. Patient complains of discomfort in umbilical area and has an appointment with general surgeon next month. [facility] Medical History (Updated 12/09/24 @ 13:27 by Saige Salamanca MD) Umbilical hernia Type 2 diabetes mellitus with unspecified complications Non-rheumatic aortic stenosis Non-rheumatic aortic stenosis Heart murmur Venous insufficiency DVT (deep venous thrombosis) GERD (gastroesophageal reflux disease) Vitamin D deficiency Hyperlipidemia Bladder hypertonicity BEKAH (obstructive sleep apnea) Morbid obesity Essential hypertension Surgical History H/O colonoscopy History of shoulder surgery History of total knee replacement History of cholecystectomy History of bilateral cataract extraction History of carpal tunnel release of both wrists History of section Family History Mother Breast cancer Myocardial infarction Father Myocardial infarction Prostate cancer Social History Household Members Other:: , lives alone, 4 sons, Housing: House Are you a primary day care provider to a significant other at home: No Do you presently have visiting nurse or other home services: No Patient Tobacco Use Status: Never used Tobacco e-Cigarette/Vaping Use: Never Used Second Hand Smoke Exposure: No Advance Directives Date on File: 01/14/24 service: No Current occupational status: retired Current occupational exposures/hazards: No Cognitive needs: No Hearing needs: No Vision needs: Yes Questionnaire PHQ-9 Over the last 2 weeks, how often have you been bothered by any of the following problems? 1. Little interest or pleasure in doing things: not at all 2. Feeling down, depressed, or hopeless: not at all 3. Trouble falling or staying asleep, or sleeping too much: not at all 4. Feeling tired or having little energy: several days 5. Poor appetite or overeating: not at all 6. Feeling bad about yourself - or that you are a failure or have let yourself or your family down: not at all 7. Trouble concentrating on things, such as reading the newspaper or watching television: not at all 8. Moving or speaking so slowly that other people could have noticed. Or the opposite - being so fidgety or restless that you have been moving around a lot more than usual: not at all 9. Thoughts that you would be better off or of hurting yourself in some way: not at all Total score: 1 Depression Screening Interpretation: Negative Depression Screening Done: Yes 90066 - PHQ-9 Billing: Yes Source: Developed by Drs. Prudencio Ferreira, Micki Krishnan, Eric Jones and colleagues, with an educational francois from [employer]. Thrive Questionnaire Date Thrive assessed: 12/09/24 I am a: Patient What is your living situation today?: I have a steady place to live Within the past 12 months, did the food you bought not last and you didn't have the money to get more?: Never true Within the past 12 months, did you worry whether your food would run out before you got money to buy more?: Never true Do you have trouble paying for medicines?: No Do you have trouble getting transportation to medical appointments?: No Do you have trouble paying your heating and electricity bill?: No Do you have trouble taking care of your child, family member or friend?: No Do you have trouble with day-to-day activities such as bathing, preparing meals, shopping, managing finances, etc.?: No Are you currently unemployed and looking for a job?: No Are you interested in more education?: No Please select the resources that you would like help with: None THRIVE Score: 0 AUDIT C Alcohol Use Questionnaire (AUDIT-C) 1. How often do you have a drink containing alcohol?: Never 3. How often do you have six or more drinks on one occasion?: Never Total Score: 0 JEYSON-7 AMB Questionnaire JEYSON-7 Date JEYSON - 7 assessed: 12/09/24 Feeling nervous, anxious, or on edge: 0 = Not at all Not being able to stop or control worryin = Not at all Worrying too much about different things: 0 = Not at all Trouble relaxin = Not at all Being so restless that it is hard to sit still: 0 = Not at all Becoming easily annoyed or irritable: 0 = Not at all Feeling afraid as if something awful might happen: 0 = Not at all Total JEYSON-7 score (0-4 normal; 5-9 mild; 10-14 moderate; 15-21 severe): 0 Source: Developed by Drs. Prudencio Ferreira, Micki Krishnan, Eric Jones and colleagues, with an educational francois from [employer]. JEYSON-7 Assessment Billing JEYSON-7 Assessment Tool: JEYSON-7 Assessment 77048 Review of Systems Const All systems reviewed & are unremarkable except as noted in HPI and below Eyes Reports no additional complaints ENT Reports no additional complaints Card Reports no additional complaints Resp Reports no additional complaints GI Reports no additional complaints Reports no additional complaints Physical exam (Primary Care) Vital Signs: Last Vital Signs Temp 98.3 F 12/09/24 12:53 Pulse 95 12/09/24 12:53 Resp 20 12/09/24 12:53 BP 124/64 12/09/24 12:53 Pulse Ox 97 12/09/24 12:53 Oxygen Delivery Method Room Air 12/09/24 12:53 BMI result Body Mass Index 33.5 Tobacco/Smoking Status: Tobacco use Status Tobacco use date assessed 12/09/24 12/09/24 13:07 Patient Tobacco Use Status Never used Tobacco 12/09/24 12:53 e-Cigarette/Vaping Use Never Used 12/09/24 12:53 PHQ-9: PHQ-9 Score PHQ-9: Total score 1 12/09/24 13:07 Depression Screening Interpretation: Negative Thrive Assessment: Date of Thrive Assessment Date Thrive assessed 12/09/24 12/09/24 13:07 Const General: no acute distress HENMT Head: Yes normal to inspection Face and sinus: Yes normal facial exam Eyes General: appearance normal, both eyes and all related structures Resp Effort & Inspection: normal respiratory effort Auscultation: clear to auscultation bilaterally Cardio Rhythm: regular rhythm Heart sounds: S1 normal heart sound present and S2 normal heart sound present GI Other: Reducible slightly tender umbilical hernia Inspection: Yes normal to inspection Palpation (GI): Soft to palpation Percussion: Yes normal to percussion Auscultation: normal bowel sounds Extrem General: Yes no clubbing, cyanosis or edema Coding Level of Care Code Est Pt Level 4 (04460) Complex EM visit Add On G2211 Diagnoses Anemia D64.9 Type 2 diabetes mellitus with unspecified complications E11.8 Morbid obesity E66.01 Hyperlipidemia E78.5 Non-rheumatic aortic stenosis I35.0 Umbilical hernia K42.9 Essential hypertension I10 Sciatica M54.30 Additional Codes JEYSON-7 Assessment Billing - JEYSON-7 Assessment Tool: JEYSON-7 Assessment 41393 ([id number]) PHQ-9 - 68256 - PHQ-9 Billing: Yes ([id number]) Assessment & Plan Assessment & Plan (1) Anemia: Code(s): D64.9 - Anemia, unspecified Category: Medical Plan: Borderline check iron studies and B12 (2) Type 2 diabetes mellitus with unspecified complications: Code(s): E11.8 - Type 2 diabetes mellitus with unspecified complications Category: Medical Plan: A1c is 6.5, ADA diet increase physical activity weight loss discussed with the patient. Continue metformin follow-up in 6 months with a fasting labs before (3) Morbid obesity: Code(s): E66.01 - Morbid (severe) obesity due to excess calories Category: Medical Plan: Decreasing caloric intake increasing physical activity discussed with the patient. She is not interested in trying GLP 1 agonist to facilitate weight loss (4) Hyperlipidemia: Code(s): E78.5 - Hyperlipidemia, unspecified Category: Medical Plan: Continue statin (5) Non-rheumatic aortic stenosis: Comment: mild Echo 08/2022, f/u with [facility] cardiology Code(s): I35.0 - Nonrheumatic aortic (valve) stenosis Category: Medical Plan: Follow-up with Cardiology for repeat echo (6) Umbilical hernia: Code(s): K42.9 - Umbilical hernia without obstruction or gangrene Category: Medical Plan: Follow-up with surgery (7) Essential hypertension: Code(s): I10 - Essential (primary) hypertension Category: Medical Plan: Continue current medications (8) Sciatica: Code(s): M54.30 - Sciatica, unspecified side Category: Medical Plan: For chronic sciatica patient will continue physical therapy if there is no improvement MRI lumbar spine will be obtained Orders: Orders IRON PROFILE Today D64.9 - Anemia, unspecified Vitamin B12 and Folate Today D64.9 - Anemia, unspecified Comprehensive [place]. Panel Fast 6 Months E11.8 - Type 2 diabetes mellitus with unspecified complications, E66.01 - Morbid (severe) obesity due to excess calories, E78.5 - Hyperlipidemia, unspecified Complete Blood Count Auto Diff 6 Months E11.8 - Type 2 diabetes mellitus with unspecified complications, E66.01 - Morbid (severe) obesity due to excess calories, E78.5 - Hyperlipidemia, unspecified Hemoglobin A1c 6 Months E11.8 - Type 2 diabetes mellitus with unspecified complications, E66.01 - Morbid (severe) obesity due to excess calories, E78.5 - Hyperlipidemia, unspecified TSH reflex Free T4 6 Months E11.8 - Type 2 diabetes mellitus with unspecified complications, E66.01 - Morbid (severe) obesity due to excess calories, E78.5 - Hyperlipidemia, unspecified Lipid Panel 6 Months E11.8 - Type 2 diabetes mellitus with unspecified complications, E66.01 - Morbid (severe) obesity due to excess calories, E78.5 - Hyperlipidemia, unspecified Microalbumin, Random (w Creat) 6 Months E11.8 - Type 2 diabetes mellitus with unspecified complications, E66.01 - Morbid (severe) obesity due to excess calories, E78.5 - Hyperlipidemia, unspecified
== END 2024-12-09 13:36 | disposition home or self-care (01) ==
LOC: HO.HMCC 12:49
PROVIDERS: PCP Internal Medicine; Visit Provider Internal Medicine
DX: D64.9 Anemia, unspecified (principal); E11.69 Type 2 diabetes mellitus with other specified complication; E66.01 Morbid (severe) obesity due to excess calories; Z68.33 Body mass index [BMI] 33.0-33.9, adult; E78.5 Hyperlipidemia, unspecified; I35.0 Nonrheumatic aortic (valve) stenosis; K42.9 Umbilical hernia without obstruction or gangrene; I10 Essential (primary) hypertension; M54.30 Sciatica, unspecified side

== ENCOUNTER → 2024-12-09 12:48 | Outpatient (BNVA) | payer MEDICARE, SELFPAY | PROVIDERS: PCP Internal Medicine; Visit Provider Internal Medicine | DX: I10 Essential (primary) hypertension (principal); E78.5 Hyperlipidemia, unspecified; D64.9 Anemia, unspecified; E11.8 Type 2 diabetes mellitus with unspecified complications; E66.01 Morbid (severe) obesity due to excess calories; I35.0 Nonrheumatic aortic (valve) stenosis; K42.9 Umbilical hernia without obstruction or gangrene; M54.30 Sciatica, unspecified side | CPT/HCPCS: 96127; 99212 ==

== ENCOUNTER 2024-12-30 09:00 | Outpatient (RCR) | payer MEDICARE, SELFPAY ==
--- NOTE | 2024-12-02 11:05 | MHC.PT.EP ---
[facility] [place] [address] Office [place] Office [address] Bianka Huitron [address] [phone] F: [phone] F: [phone] F: [phone] F: [phone] Physical Therapy Plan of Care Date of Evaluation: 12/02/24 Date of Surgery: Diagnosis: sciatica Assessment: Patient is a 79 year old R handed English speaking female who presents with s/s consistent with low back pain, sciatica. She does not work and is fairly sedentary at this time. Patient past medical history includes HTN, obesity, b/l TKA and DVT. Current impairments include pain, posture, ROM, strength, flexibility, activity tolerance and functional mobility. 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 Patient is motivated with good rehab potential. Skilled PT will address impairments and functional limitations in order to achieve goals. 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 Manual therapy to restore motion and function. Therapeutic exercise to improve strength and flexibility. Neuromuscular re-education for posture and balance. Therapeutic activities to return to functional activities of daily living. Electronically signed by: Juan Pinon, PT Please sign and return to therapist. Thank you for your referral.
--- NOTE | 2025-04-01 12:50 | MHC.PT.DC ---
[facility] Office [place] Office [place] Office [address] Bianka Huitron [address] [phone] F: [phone] F: [phone] F: [phone] F: [phone] Physical Therapy Discharge Report Diagnosis: sciatica Date of Surgery: Date of Evaluation: 12/02/24 Date of Discharge: 01/11/25 Treatments to Date: 8 Cancellations to Date: No Shows to Date: Discharge Status: Independent with HEP Recommend MD Follow-up Discharge Summary: : pt has HEP and will d/c to it. she has had difficulty with sustaining any appreciable progress on pain. 12/28/24: pt notes progress from last visit not sustained. we will likely d/c to HEP NV. 12/23/24: pt noted minor symptomatic improvement. we will assess if it is sustained next visit. 12/21/24: pt with same s/s, no improvement so far in skilled PT. we will try to vary interventions to achieve progress. if no progress on s/s is appreciated, we will refer back to MD after last scheduled appt. 12/16; Pt stated she didn't feel any better after RX. Pt ITB tender with rollling. Progress as mary NV attempt hip strengthening. 12/09/24: we held progression today. I did encourage her to discuss s/s with MD, especially discomfort on L medial/posterior lower leg, as this demonstrates a concern for DVT though she said this has been present and stable for 2 years. 12/07/24: pt progressing well with skilled PT so far. difficulty with supine clams. we will continue to assess usefulness of this intervention. Patient is a 79 year old R handed Marshallese speaking female who presents with s/s consistent with low back pain, sciatica. She does not work and is fairly sedentary at this time. Patient past medical history includes HTN, obesity, b/l TKA and DVT. Current impairments include pain, posture, ROM, strength, flexibility, activity tolerance and functional mobility. 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 Patient is motivated with good rehab potential. Skilled PT will address impairments and functional limitations in order to achieve goals. Electronically signed by: Juan Pinon, PT Please sign and return to therapist. Thank you for your referral.
== END 2025-04-01 12:50 | disposition home or self-care (01) ==
LOC: HO.PTCHIC 09:00
PROVIDERS: PCP Internal Medicine; Visit Provider Internal Medicine
DX: M54.40 Lumbago with sciatica, unspecified side (principal)
CPT/HCPCS: 97110; 97140; 97163

== ENCOUNTER 2025-01-12 13:40 | Outpatient (AMB) | payer MEDICARE, SELFPAY ==
[2025-01-12 13:52] VITALS: BP 163/74; PULSE 85; BMI 33.7
--- NOTE | 2025-01-12 13:52 | MHC.OFFVIS ---
Vital Signs 01/12/25 13:52 Height 5 ft 2 in Weight 184 lb BMI 33.7 BP 163/74 H Blood Pressure Location Rt brachial Position Sitting Pulse 85 Intake Visit Reasons: Umbilical Hernia Intake Note: Patient is seen in office for evaluation of an umbilical hernia. Present for 6mo. Pt c/o: bulge on abdomen. Pain and discomfort started 3mo ago. zero imaging Vp Design Required: Yes Vp Design Name: Julio [email or web address] Information Interpreted: non-clinical & clinical Accompanied by: Self / Same As Patient Allergies No Known Allergies (No Known Allergies*) Allergy (Verified 01/12/25 13:54) Medication List - Last Reconciled 01/12/25 by Sarbjit Cowan MD albuterol sulfate 90 mcg/actuation 2 puffs inhalation Q6H PRN aspirin 81 mg PO DAILY blood sugar diagnostic (GenUltimate Test Strip) As directed blood sugar diagnostic (OneTouch Ultra Test strips) qd blood-glucose meter (OneTouch Ultra2 Meter) As directed ciclopirox 0.77% (Ciclodan) 1 appl topical BID 4 weeks diabetic supplies, miscellan. extra depth diabetic shoes with 3 pairs custom heat molded innersoles diabetic supplies, Limeadecellan. diabetic shoes , custom orthotics fenofibrate micronized 67 mg PO DAILY fesoterodine ER (Toviaz) 8 mg PO DAILY [genultimate lancets ] metformin 1,000 mg PO DAILY metoprolol succinate ER 100 mg PO DAILY omeprazole 20 mg PO DAILY rosuvastatin (Crestor) 10 mg PO DAILY triamcinolone acetonide 0.025% 1 appl topical DAILY valsartan-hydrochlorothiazide 160-25 mg 1 tab PO DAILY HPI Comments Details: 79-year-old Mohawk speaking female presenting for evaluation of an umbilical hernia. She reports prior section through a midline incision which extends above the umbilicus. Since this time she is noted a bump near her umbilicus. For the past 6 months the lump has increased in size and she reports increased pain for the last 3 months. She has some nausea without vomiting occasionally requires medication for the nausea. She denies constipation or diarrhea. She denies a previous history of hernia surgery in this location. [facility] Medical History Umbilical hernia Type 2 diabetes mellitus with unspecified complications Non-rheumatic aortic stenosis Non-rheumatic aortic stenosis Heart murmur Venous insufficiency DVT (deep venous thrombosis) GERD (gastroesophageal reflux disease) Vitamin D deficiency Hyperlipidemia Bladder hypertonicity BEKAH (obstructive sleep apnea) Morbid obesity Essential hypertension Surgical History H/O colonoscopy History of shoulder surgery History of total knee replacement History of cholecystectomy History of bilateral cataract extraction History of carpal tunnel release of both wrists History of section Family History Mother Breast cancer Myocardial infarction Father Myocardial infarction Prostate cancer Social History Household Members Other:: , lives alone, 4 sons, Housing: House Are you a primary interior plant caretaker to a significant other at home: No Do you presently have visiting nurse or other home services: No Patient Tobacco Use Status: Never used Tobacco e-Cigarette/Vaping Use: Never Used Second Hand Smoke Exposure: No Advance Directives Date on File: 01/14/24 service: No Current occupational status: retired Current occupational exposures/hazards: No Cognitive needs: No Hearing needs: No Vision needs: Yes Review of Systems Const All systems reviewed & are unremarkable except as noted in HPI and below Denies chills, Denies fever(s), Denies headache(s), Denies poor appetite and Denies weakness ENT Denies headache(s) Card Denies chest pain, Denies irregular heart rhythm, Denies palpitations and Denies dyspnea Resp Denies cough, Denies excessive phlegm production and Denies dyspnea GI Reports abdominal pain, Denies bloating, Denies change in bowel habits, Denies constipation, Denies heartburn, Denies diarrhea, Reports nausea and Denies vomiting Denies urinary frequency Musc Denies back pain, Denies muscle weakness and Denies numbness Skin/Breast Denies changing lesions and Denies unusual bruising Neuro Denies headache(s), Denies numbness, Denies paresthesias and Denies weakness Psych Denies anxiety and Denies depression Endo Denies palpitations Jonathan/Lymph Denies lymphadenopathy Physical Exam Vital Signs: Last Vital Signs Pulse 85 01/12/25 13:52 BP 163/74 H 01/12/25 13:52 BMI result Body Mass Index 33.7 Const General: cooperative and no acute distress Nutritional Appearance: well nourished Orientation/consciousness: patient oriented x3 Limitations: no limitations HEENT Head: Yes normocephalic and Yes atraumatic Ears: hearing grossly normal bilaterally Resp Effort & Inspection: normal respiratory effort, no audible wheezes, no cough and no respiratory distress Cardio Jugular venous distension: no JVD GI Inspection: Yes normal to inspection Palpation (GI): Soft to palpation, Tenderness to palpation present (GI) periumbilically, no guarding, not rigid, No hepatosplenomegaly present and Hernia present umbilical (4 cm reducible, tender hernia) Percussion: Yes normal to percussion Auscultation: normal bowel sounds Rectal Exam - Female: deferred Skin Other: Warm, dry, no rash Neuro General: patient oriented x3 Extrem General: Yes no clubbing, cyanosis or edema Assessment & Plan Assessment & Plan (1) Umbilical hernia: Code(s): K42.9 - Umbilical hernia without obstruction or gangrene Category: Medical Qualifiers: Obstruction and gangrene presence: without obstruction or gangrene Qualified Code(s): K42.9 - Umbilical hernia without obstruction or gangrene Plan 79-year-old female patient presenting with a reducible but symptomatic umbilical hernia measuring approximately 4 cm in diameter. I recommended repair of this umbilical hernia with mesh and after discussion of the procedure, risks and alternatives, she consents to a repair of the umbilical hernia with mesh. Coding Level of Care Code New Pt Level 4 (87715) Diagnoses Umbilical hernia without obstruction and without gangrene K42.9 Obstruction and gangrene presence: without obstruction or gangrene
== END 2025-01-12 14:20 | disposition home or self-care (01) ==
LOC: HO.HGS 13:40
PROVIDERS: PCP Internal Medicine; Referring Provider Internal Medicine; Visit Provider Surgery
DX: K42.9 Umbilical hernia without obstruction or gangrene (principal)
CPT/HCPCS: 99204

== ENCOUNTER → 2025-01-12 13:40 | Outpatient (BNVA) | payer MEDICARE, SELFPAY | PROVIDERS: PCP Internal Medicine; Referring Provider Internal Medicine; Visit Provider Surgery | DX: K42.9 Umbilical hernia without obstruction or gangrene (principal) | CPT/HCPCS: 99202 ==

== ENCOUNTER 2025-01-18 09:57 | Day surgery (SDC) | payer MEDICARE, SELFPAY ==
[2025-01-18] VITALS (9 sets, daily range): BP systolic 127–162; BP diastolic 49–76; PULSE 85–96; RESP 16–20; TEMP 36.3–36.5; O2SAT 94–100; BMI 35.2
[2025-01-18] MEDS: Lactated Ringers 1,000 ML 100 ML IVCONT (10:41)
[2025-01-18 10:43] LABS: Glucose, Whole Blood 114 mg/dL (60-115)
--- NOTE | 2025-01-18 11:27 | MHC.SHP ---
Pre-Procedural Eval Section A - 24 Hr Update-Section A only Date of Service: 01/18/25 The patient is an INPATIENT: No Changes since office visit: Yes Patient answered all questions; No Cold of Flu in the past 2 weeks, No New Medical Problems and No Changes in Medication The patient has been examined within 24 hours of the surgical procedure. The History & Physical has been completed within 30 days and I have reviewed it.: Yes Section B - Complete if H&P > 30 days Chief Complaint: Umbilical hernia without obstruction or gangrene Allergies: Allergies Allergy/AdvReac Type Severity Reaction Status Date / Time No Known Allergies (No Known Allergy Verified 01/12/25 13:54 Allergies*) Plan Diagnosis/Plan: Unchanged I have reviewed the history and physical and performed a pertinent physical examination on my patient. No changes have occurred unless specified. Time Spent With Patient Time: Total time managing care of this patient today ____ minutes.
--- NOTE | 2025-01-18 11:50 | P.CONAN_ITS ---
Documented by User: Eri Contreras NP 01/14/25 12:10 HPI - Anesthesia Eval Consult details Narrative: 79yo F for Repair Hernia Umbilical Reducible with mesh Follows [facility] Cardiology for mild-mod (DONTE Cont.VTI: 1.42). Stable at 08/2024 office visit with periodic monitoring. [facility] Active Problems Active Problems: All Active Problems Anemia (Acute) Umbilical hernia (Acute) Sciatica (Acute) Fracture of greater tuberosity of right humerus (Acute) Degenerative disc disease, lumbar (Acute) Cellulitis (Acute) Bilateral primary osteoarthritis of hip (Acute) Lower back pain (Acute) Hip pain, bilateral (Acute) Annual physical exam (Acute) Varicose veins of left lower extremity with inflammation (Acute) Venous insufficiency of both lower extremities (Acute) Left leg swelling (Acute) Cellulitis of leg, left (Acute) Peripheral neuropathy (Acute) Heart murmur (Acute) Neck pain (Acute) History of total bilateral knee replacement (Acute) OAB (overactive bladder) (Acute) Knee pain, bilateral (Acute) Retention, urine (Acute) Type 2 diabetes mellitus with unspecified complications (Acute) UTI (urinary tract infection) (Acute) Normal colonoscopy (Acute) S/P knee surgery (Acute) Urgency of micturition (Acute) Non-rheumatic aortic stenosis (Acute) Vitamin D deficiency (Acute) Hyperlipidemia (Acute) Bladder hypertonicity (Acute) BEKAH (obstructive sleep apnea) (Acute) Morbid obesity (Acute) Essential hypertension (Acute) Past Medical History Medical History Umbilical hernia Type 2 diabetes mellitus with unspecified complications Non-rheumatic aortic stenosis Non-rheumatic aortic stenosis Heart murmur Venous insufficiency DVT (deep venous thrombosis) GERD (gastroesophageal reflux disease) Vitamin D deficiency Hyperlipidemia Bladder hypertonicity BEKAH (obstructive sleep apnea) Morbid obesity Essential hypertension Family History Family History Mother Breast cancer Myocardial infarction Father Myocardial infarction Prostate cancer Family history of problems with anesthesia: No Surgical History Surgical History H/O colonoscopy History of shoulder surgery History of total knee replacement History of cholecystectomy History of bilateral cataract extraction History of carpal tunnel release of both wrists History of section History of Problems with Anesthesia: No Social History Social History Household Members Other:: , lives alone, 4 sons, Housing: House Are you a primary wound care center consultant to a significant other at home: No Do you presently have visiting nurse or other home services: No Patient Tobacco Use Status: Never used Tobacco e-Cigarette/Vaping Use: Never Used Second Hand Smoke Exposure: No Use of substances other than those prescribed or required for medical reasons: No Advance Directives: No Advance Directives Information Provided: Yes Advance Directives Date on File: 01/14/24 service: No Current occupational status: retired Current occupational exposures/hazards: No Cognitive needs: No Hearing needs: No Vision needs: Yes Meds Allergies Allergy/AdvReac Type Severity Reaction Status Date / Time No Known Allergies (No Known Allergy Verified 01/12/25 13:54 Allergies*) Home Medications ?Medication ?Instructions ?Recorded ?Confirmed ?Last Taken ?Type genultimate lancets 04/20/21 01/12/25 Unknown H istory albuterol sulfate 90 mcg/actuation 2 puff inhalation Q 6H PRN 08/04/24 01/12/25 Unknown History aerosol inhaler aspirin 81 mg tablet 81 mg PO DAILY 01/12/2501/01 Unknown History Exam Pertinent Lab Results Pertinent Lab Results: Laboratory Tests 12/07/24 07:46 WBC 6.2 Hgb 11.3 L Hct 34.3 L Plt Count 147 L Sodium 139 Potassium 4.8 Chloride 105 Carbon Dioxide 27 BUN 24 H Creatinine 1.01 Narrative Narrative: EKG 08/2024 EKG Details: EKG with underlying sinus rhythm at 72/Min; no significant ST-T changes and otherwise unremarkable. Normal TN and corrected QT. appearance of possible septal infarct is most likely from her body habitus. ECHO 2023 Conclusions: - 1. Normal LV ejection fraction 55-60% with impaired relaxation filling pattern 2. Cqnl-bn-[id number] aortic stenosis 3. No gross pericardial effusion NM cardiolite stress test 2023 Impression: 1. Myocardial perfusion imaging study shows probably normal myocardial perfusion. 2. Gated LVEF is 59% during stress; visually normal during rest. 3. Transient ischemic dilatation not present. EKG component of the test reported separately. Assessment and Plan Assessment Anesthesia Assessment: Chart Reviewed Final Anesthetic Review Family History of Problems with Anesthesia: No History of Problems with Anesthesia: No Documented by User: Erika German, 01/18/25 12:18 [facility] Past Medical History Medical History Umbilical hernia Type 2 diabetes mellitus with unspecified complications Non-rheumatic aortic stenosis Non-rheumatic aortic stenosis Heart murmur Venous insufficiency DVT (deep venous thrombosis) GERD (gastroesophageal reflux disease) Vitamin D deficiency Hyperlipidemia Bladder hypertonicity BEKAH (obstructive sleep apnea) Morbid obesity Essential hypertension Family History Family History Mother Breast cancer Myocardial infarction Father Myocardial infarction Prostate cancer Family history of problems with anesthesia: No Surgical History Surgical History H/O colonoscopy History of shoulder surgery History of total knee replacement History of cholecystectomy History of bilateral cataract extraction History of carpal tunnel release of both wrists History of section History of Problems with Anesthesia: No Social History Social History Household Members Other:: , lives alone, 4 sons, Housing: House Are you a primary wound care center consultant to a significant other at home: No Do you presently have visiting nurse or other home services: No Patient Tobacco Use Status: Never used Tobacco e-Cigarette/Vaping Use: Never Used Second Hand Smoke Exposure: No Use of substances other than those prescribed or required for medical reasons: No Advance Directives: No Advance Directives Information Provided: Yes Advance Directives Date on File: 01/14/24 service: No Current occupational status: retired Current occupational exposures/hazards: No Cognitive needs: No Hearing needs: No Vision needs: Yes Meds Allergies Allergy/AdvReac Type Severity Reaction Status Date / Time No Known Allergies (No Known Allergy Verified 01/12/25 13:54 Allergies*) Home Medications ?Medication ?Instructions ?Recorded ?Confirmed ?Last Taken ?Type genultimate lancets 04/20/21 01/12/25 Unknown H istory albuterol sulfate 90 mcg/actuation 2 puff inhalation Q 6H PRN 08/04/24 01/12/25 Unknown History aerosol inhaler aspirin 81 mg tablet 81 mg PO DAILY 01/12/2501/01 Unknown History Exam Exam Date and Time: 01/18/25 1215 Height,Weight and Vital Signs: Height 5 ft Weight 81.8 kg Airway Mallampati Class: III TM Dist: <=3cm Neck ROM: Limited Denture: Upper Partial: Lower Heart: S1S2 Lungs: CTAB Assessment and Plan Assessment Anesthesia Assessment: Anesthesia Plan Discussed and Chart Reviewed Final Anesthetic Review Family History of Problems with Anesthesia: No History of Problems with Anesthesia: No NPO: Yes ASA Class: III Final Preanesthetic Review: No Changes in Pt Med Stat, Meds/Allgs Chart Reviewed, Consent Obtained/Reviewed (Liberian marbleizing machine tender at bedside for translation) and Anes Risks/Benef Reviewed Patient Risk: Low Procedure Risk: Low Anesthetic Plan Anesthetic Plan: GA and Agree w/ Assess. and Plan Disposition: Standard PACU
--- NOTE | 2025-01-18 12:38 | P.OP_ITS ---
Operative Note Operative Note Date of Service: 01/18/25 Narrative: Preoperative diagnosis: Umbilical hernia, reducible, 4 cm Postoperative diagnosis: Same Procedure: Repair of umbilical hernia reducible with mesh Surgeon: Sarbjit Cowan MD Hoop Machine Operator: Melanie Connor PA-C; FARZANA Luong Anesthesia: General LMA Indications for procedure: 79-year-old female patient presenting with a lump in the umbilical region extending below the umbilicus which increases in size with lifting and coughing but reduces with light pressure. Patient has had a previous midline incision and appears to extend from this incision. On examination the hernia measures approximately 4 cm in diameter. Operative findings: Reducible umbilical hernia Specimen: None Estimated blood loss: Less than 2 mL Complications: None Procedure details: Patient was brought to the OR and placed in a supine position. After administering general anesthesia the patient's abdomen was prepped with ChloraPrep and draped in a sterile fashion. A surgical time-out was called the consent confirmed. Patient received preoperative antibiotics and Venodyne boots were in place. Local anesthesia consisting of 0.5% Sensorcaine was infiltrated around the umbilicus. A midline incision was made using the previous incision in the midline at the umbilicus and carried out through subcutaneous tissue. Combination of blunt and sharp dissection was then used to dissect the hernia sac from the surrounding subcutaneous tissue. The sac was then dissected down to the fascial edge. The contents of the hernia were then reduced below the fascia. Fascia was then dissected circumferentially to create a preperitoneal space. The umbilical skin was lifted off the fascia as well to facilitate further dissection. Hemostasis was assured at all times using electrocautery. A 6.4 cm round Ventralex mesh was then obtained. It this was deployed within the preperitoneal space and secured in 4 quadrants using a 1 Tycron suture. The fascia was then closed over the mesh using [id number] 1 Tycron sutures. Wounds were then irrigated with saline solution and suctioned dry. Umbilical skin was reattached to the fascia using a 3-0 Polysorb suture. Dermis was reapproximated using interrupted 3-0 Polysorb sutures. Skin was closed using a running subcuticular 4-0 Polysorb suture. Steri-Strips, 4 x 4 gauze and Tegaderm were then applied. The patient tolerated the procedure well. Sponge, instrument, and needle counts reported as correct. The patient was transferred to PACU in stable condition.
[2025-01-18] MEDS: oxyCODONE HCl Immed Release 5 MG TABLET PO (13:57)
== END 2025-01-18 16:00 | disposition home or self-care (01) ==
PROVIDERS: PCP Internal Medicine; Visit Provider Surgery
PROC: (CPT 49593; principal; 2025-01-18 12:10)
DX: K42.9 Umbilical hernia without obstruction or gangrene (principal); R11.0 Nausea; I35.0 Nonrheumatic aortic (valve) stenosis; R01.1 Cardiac murmur, unspecified; I10 Essential (primary) hypertension; E78.5 Hyperlipidemia, unspecified; E11.9 Type 2 diabetes mellitus without complications; I87.2 Venous insufficiency (chronic) (peripheral); Z86.718 Personal history of other venous thrombosis and embolism; N31.8 Other neuromuscular dysfunction of bladder; G47.33 Obstructive sleep apnea (adult) (pediatric); Z79.82 Long term (current) use of aspirin; Z79.84 Long term (current) use of oral hypoglycemic drugs; Z79.899 Other long term (current) drug therapy; E55.9 Vitamin D deficiency, unspecified; K21.9 Gastro-esophageal reflux disease without esophagitis; E66.01 Morbid (severe) obesity due to excess calories; Z68.33 Body mass index [BMI] 33.0-33.9, adult; Z98.890 Other specified postprocedural states
CPT/HCPCS: 49593; 82947; C1781; C9088; J0690; J1100; J2003; J2371; J2405; J2704; J3010

== ENCOUNTER → 2025-01-18 09:57 | Outpatient (BNV) | payer MEDICARE, SELFPAY | PROVIDERS: PCP Internal Medicine; Visit Provider Surgery | DX: K42.9 Umbilical hernia without obstruction or gangrene (principal) | CPT/HCPCS: 49593 ==

== ENCOUNTER 2025-01-29 10:31 | Outpatient (AMB) | payer MEDICARE, SELFPAY ==
--- NOTE | 2025-01-29 10:56 | A.OFFVIS_ITS ---
Vital Signs 01/29/25 11:01 Height 5 ft Weight 183 lb 2 oz BMI 35.8 BP 136/63 Blood Pressure Location Lt brachial Position Sitting Pulse 73 Intake Visit Reasons: S/P umbilical hernia w/mesh Intake Note: Patient is seen in office for post op assessment post umbilical hernia repair. Pt c/o: constipation for the first 3 days, has resolved, area was purpulish is better now per pt Spindraw Operator Required: Yes Spindraw Operator Language: Dominican Spindraw Operator Services: Spindraw Operator Present Spindraw Operator Name: Reta ([id number]) Information Interpreted: non-clinical & clinical Accompanied by: Self / Same As Patient Allergies No Known Allergies (No Known Allergies*) Allergy (Verified 01/29/25 11:06) Medication List - Last Reconciled 01/29/25 by Sarbjit Cowan MD albuterol sulfate 90 mcg/actuation 2 puffs inhalation Q6H PRN aspirin 81 mg PO DAILY blood sugar diagnostic (GenUltimate Test Strip) As directed blood sugar diagnostic (OneTouch Ultra Test strips) qd blood-glucose meter (OneTouch Ultra2 Meter) As directed ciclopirox 0.77% (Ciclodan) 1 appl topical BID 4 weeks diabetic supplies, miscellan. extra depth diabetic shoes with 3 pairs custom heat molded innersoles diabetic supplies, miscellan. diabetic shoes , custom orthotics fenofibrate micronized 67 mg PO DAILY fesoterodine ER (Toviaz) 8 mg PO DAILY [genultimate lancets ] metformin 1,000 mg PO DAILY metoprolol succinate ER 100 mg PO DAILY omeprazole 20 mg PO DAILY rosuvastatin (Crestor) 10 mg PO DAILY triamcinolone acetonide 0.025% 1 appl topical DAILY valsartan-hydrochlorothiazide 160-25 mg 1 tab PO DAILY HPI Comments Details: 79-year-old female patient returning 1 week following repair of an umbilical hernia. She tolerated the procedure well and denies any ongoing symptoms other than some mild abdominal pain. She denies any bleeding or discharge from her incision. [facility] Medical History (Updated 01/12/25 @ 14:29 by Sarbjit Cowan MD) Umbilical hernia Type 2 diabetes mellitus with unspecified complications Non-rheumatic aortic stenosis Non-rheumatic aortic stenosis Heart murmur Venous insufficiency DVT (deep venous thrombosis) GERD (gastroesophageal reflux disease) Vitamin D deficiency Hyperlipidemia Bladder hypertonicity BEKAH (obstructive sleep apnea) Morbid obesity Essential hypertension Surgical History (Updated 01/29/25 @ 11:04 by ALEX Cordero) Hx of umbilical hernia repair (01/18/25) H/O colonoscopy History of shoulder surgery History of total knee replacement History of cholecystectomy History of bilateral cataract extraction History of carpal tunnel release of both wrists History of section Family History Mother Breast cancer Myocardial infarction Father Myocardial infarction Prostate cancer Social History Household Members Other:: , lives alone, 4 sons, Housing: House Are you a primary healthcare sales representative to a significant other at home: No Do you presently have visiting nurse or other home services: No Patient Tobacco Use Status: Never used Tobacco e-Cigarette/Vaping Use: Never Used Second Hand Smoke Exposure: No Advance Directives Date on File: 01/14/24 service: No Current occupational status: retired Current occupational exposures/hazards: No Cognitive needs: No Hearing needs: No Vision needs: Yes Physical Exam Vital Signs: Last Vital Signs Pulse 73 01/29/25 11:01 BP 136/63 01/29/25 11:01 BMI result Body Mass Index 35.8 Const General: no acute distress Nutritional Appearance: well nourished Orientation/consciousness: patient oriented x3 Limitations: no limitations Resp Effort & Inspection: normal respiratory effort, no audible wheezes, no cough and no respiratory distress GI Other: Periumbilical incision is clean, dry, and intact. Dressing was removed and intact Steri-Strips were identified. No hernia noted with Valsalva maneuvers. No evidence of wound infection. Neuro General: patient oriented x3 Extrem Other: No edema Assessment & Plan Assessment & Plan (1) Umbilical hernia: Code(s): K42.9 - Umbilical hernia without obstruction or gangrene Category: Medical Qualifiers: Obstruction and gangrene presence: without obstruction or gangrene Qualified Code(s): K42.9 - Umbilical hernia without obstruction or gangrene Plan 79-year-old female patient returning 1 week following repair of an umbilical hernia. She tolerated the procedure well the wounds are healing nice. She should continue to avoid lifting greater than 10 lb and return in approximately 1 month for wound examination. Coding Level of Care Code Est Pt Level 3 (52209) Diagnoses Umbilical hernia without obstruction and without gangrene K42.9 Obstruction and gangrene presence: without obstruction or gangrene
[2025-01-29 11:01] VITALS: BP 136/63; PULSE 73; BMI 35.8
== END 2025-01-29 11:33 | disposition home or self-care (01) ==
LOC: HO.HGS 10:32
PROVIDERS: PCP Internal Medicine; Visit Provider Surgery
DX: K42.9 Umbilical hernia without obstruction or gangrene (principal)
CPT/HCPCS: 99213

== ENCOUNTER → 2025-01-29 10:31 | Outpatient (BNVA) | payer MEDICARE, SELFPAY | PROVIDERS: PCP Internal Medicine; Visit Provider Surgery | DX: K42.9 Umbilical hernia without obstruction or gangrene (principal) | CPT/HCPCS: 99212 ==

== ENCOUNTER 2025-03-01 09:02 | Outpatient (AMB) | payer MEDICARE, SELFPAY ==
[2025-03-01 09:10] VITALS: BP 130/72; PULSE 73; BMI 35.7
--- NOTE | 2025-03-01 09:10 | A.OFFVIS_ITS ---
Vital Signs 3 03/01/25 09:10 Height 5 ft Weight 183 lb BMI 35.7 BP 130/72 Blood Pressure Location Lt radial Position Sitting Pulse 73 Intake Visit Reasons: one month S/P umbilical hernia w/mesh Intake Note: Patient here s/p Umbilical hernia repair on 01-18-2025. Patient c/o: abdomen feels inflammed. On and off pain on lower abdomen. Interface Control Officer Required: Yes Information Interpreted: clinical only (Renee #[id number]) Accompanied by: Self / Same As Patient Allergies No Known Allergies (No Known Allergies*) Allergy (Verified 03/01/25 09:11) HPI HPI one month S/P umbilical hernia w/mesh: Details: Ukrainian starch cooker used for this evaluation. Patient reports she has some intermittent pain at the hernia repair site. Also complaining of passing lots of gas and having frequent bowel movements. Denies constipation or diarrhea. She is nervous because she states people she knows have had imaging before and after hernia surgery and she has had none. Her appetite has been good [facility] Medical History (Updated 02/04/25 @ 13:17 by Saige Salamanca MD) Umbilical hernia Type 2 diabetes mellitus with unspecified complications Non-rheumatic aortic stenosis Non-rheumatic aortic stenosis Heart murmur Venous insufficiency DVT (deep venous thrombosis) GERD (gastroesophageal reflux disease) Vitamin D deficiency Hyperlipidemia Bladder hypertonicity BEKAH (obstructive sleep apnea) Morbid obesity Essential hypertension Surgical History (Updated 03/01/25 @ 13:09 by Kyle Saez PA-C) Hx of umbilical hernia repair (01/18/25) H/O colonoscopy History of shoulder surgery History of total knee replacement History of cholecystectomy History of bilateral cataract extraction History of carpal tunnel release of both wrists History of section Family History Mother Breast cancer Myocardial infarction Father Myocardial infarction Prostate cancer Social History Household Members Other:: , lives alone, 4 sons, Housing: House Are you a primary long term care administrator to a significant other at home: No Do you presently have visiting nurse or other home services: No Patient Tobacco Use Status: Never used Tobacco e-Cigarette/Vaping Use: Never Used Second Hand Smoke Exposure: No Advance Directives Date on File: 01/14/24 service: No Current occupational status: retired Current occupational exposures/hazards: No Cognitive needs: No Hearing needs: No Vision needs: Yes Review of Systems Const All systems reviewed & are unremarkable except as noted in HPI and below Physical Exam Vital Signs: Last Vital Signs Pulse 73 03/01/25 09:10 BP 130/72 03/01/25 09:10 BMI result Body Mass Index 35.7 Const General: comfortable and no acute distress Orientation/consciousness: patient oriented x3 Resp Effort & Inspection: normal respiratory effort and able to speak in complete sentences GI Inspection: No distended and Yes scar Palpation (GI): Soft to palpation, nontender and no guarding Abdomen image: 2 1. Neuro General: patient oriented x3 Assessment & Plan Assessment & Plan (1) Hx of umbilical hernia repair: Onset Date: 01/18/25 Comment: Sarbjit Cowan MD Code(s): Z98.890 - Other specified postprocedural states; Z87.19 - Personal history of other diseases of the digestive system Category: Medical Plan 80 year old female s/p umbilical hernia repair on 01/18 returning to the office for routine follow up. Patient is doing well, complaining of intermittent sharp pain at the incision site. I reassured her that this is common after hernia repairs as the mesh is scarring down. She is also experiencing large amounts of flatus and frequent bowel movements. I again reassured her that this is okay. I informed her that it is good that she is passing gas and stool as this means she is not obstructed. On exam her abdomen is soft and benign, incision is well healed, no concern for infection or obstruction at this time. In regards to her concern about having imaging i explained to her that this is not necessary at this time and is not routinely ordered postoperatively unless there is concern for complication such as obstruction. She understands this. She is okay to proceed with activity without restrictions starting next week, this would put her at 6 weeks post op. I recommended that she can follow up as needed if her symptoms are not improving after another month. She is agreeable to this plan. Coding Level of Care Code Est Pt Level 3 (38087) Diagnoses Hx of umbilical hernia repair Z98.890; Z87.19
== END 2025-03-01 09:21 | disposition home or self-care (01) ==
LOC: HO.HGS 09:02
PROVIDERS: PCP Internal Medicine
DX: Z98.890 Other specified postprocedural states (principal); Z87.19 Personal history of other diseases of the digestive system
CPT/HCPCS: 99213

== ENCOUNTER → 2025-03-01 09:02 | Outpatient (BNVA) | payer MEDICARE, SELFPAY | PROVIDERS: PCP Internal Medicine | DX: R10.33 Periumbilical pain (principal); Z98.890 Other specified postprocedural states; Z87.19 Personal history of other diseases of the digestive system | CPT/HCPCS: 99212 ==

== ENCOUNTER 2025-04-05 08:47 | Outpatient (REF) | payer MEDICARE, SELFPAY ==
--- NOTE | ~2025-04-05 | MM_ITS ---
EXAMINATION: MM SCREENING DIGITAL BREAST TOMOSYNTHESIS, BILATERAL CLINICAL INFORMATION: Screening. Asymptomatic. COMPARISON: Mammography: Comparison is made with available priors TECHNIQUE: Digital breast mammography with tomosynthesis is performed in both the craniocaudal and mediolateral oblique views along with computer-aided detection (CAD). FINDINGS: There are scattered areas of fibroglandular density. There are no significant masses, abnormal calcifications, or other abnormalities. MM/MM tomosynthesis screening BI IMPRESSION: No mammographic evidence of malignancy. ASSESSMENT: BI-RADS Category 1: Negative RECOMMENDATION: Routine annual mammography screening. 1 year F/U This examination should not preclude the clinical evaluation of a suspicious palpable abnormality. This patient's information was entered into a reminder system with a target due date for their next mammogram. Electronically signed by: Eri Kamara DO 04/06/2025 07:48 PM [facility]
== END 2025-04-05 08:48 | disposition home or self-care (01) ==
LOC: HO.MAMMO 08:47
PROVIDERS: PCP Internal Medicine; Visit Provider Internal Medicine
DX: Z12.31 Encounter for screening mammogram for malignant neoplasm of breast (principal)
CPT/HCPCS: 77063; 77067

== ENCOUNTER → 2025-04-05 09:00 | Outpatient (BNV) | payer MEDICARE, SELFPAY | PROVIDERS: PCP Internal Medicine; Visit Provider Internal Medicine | DX: Z12.31 Encounter for screening mammogram for malignant neoplasm of breast (principal) | CPT/HCPCS: 77063; 77067 ==